=== PATIENT | female | born 1980 | race American Indian/Alaskan Native ===

== ENCOUNTER 2019-09-26 19:42 | Emergency (ER) | payer SELFPAY ==
[2019-09-26 19:47] VITALS: BP 105/61; PULSE 103; RESP 18; TEMP 37.1; O2SAT 100
[2019-09-26 20:28] LABS: Add Manual Diff / Slide Review NO; Basophils Absolute Auto 0 /uL (0-100); Basophils Percent Auto 0.6 % (0-2); Eosinophils Absolute Auto 100 /uL (0-450); Eosinophils Percent Auto 1.6 % (2-4); Hematocrit 40.1 % (36-46); Hemoglobin 13.7 g/dL (12.0-16.0); Lymphocytes Absolute Auto 1300 /uL (1100-4500); Lymphocytes Percent Auto 15.6 % (25-40); Mean Corpuscular HGB Conc 34.2 % (30-36); Mean Corpuscular Hemoglobin 28.9 PG (26-34); Mean Corpuscular Volume 84.5 fL (80-100); Monocytes Absolute Auto 700 /uL (0-900); Monocytes Percent Auto 8.4 % (3-14); Neutrophils Absolute Auto 6100 /uL (1500-7000); Neutrophils Percent Auto 73.8 % (50-75); Platelet Count 352 X10^3/uL (150-400); Red Blood Cell Count 4.75 X10^6/uL (4.0-5.2); Red Cell Distribution Width 13.9 % (11.6-14.8); White Blood Cell Count 8.2 X10^3/uL (4.5-11.0)
[2019-09-26 20:41] LABS: BUN Creatinine Ratio 14.3 (6-22); Blood Urea Nitrogen 9 mg/dL (7-17); C-Reactive Protein Quant 3.4 mg/dL (<1.0); Calcium 9.2 mg/dL (8.4-10.2); Carbon Dioxide 27 mmol/L (22-32); Chloride 101 mmol/L (98-107); Creatine Kinase 47 U/L (30-135); Estimated Glomerular Filt Rate > 60.0 mL/min (>60); Glucose 111 mg/dL (70-100); HEMOLYSIS < 15 (0-50); Sodium 136 mmol/L (137-145)
[2019-09-26 20:47] LABS: Erythrocyte Sedimentation Rate 44 MM/HR (0-20)
[2019-09-26 20:50] LABS: NT-proBNP (BNP-Adult 18+) 40 pg/mL (<125); Troponin I < 0.012 ng/mL (0.01-0.034)
--- NOTE | 2019-09-26 21:08 | ED.EXTPRO ---
HPI - Extremity Problem General Chief complaint: Extremity Problem,Nontraumatic Stated complaint: Ankles Swelling and Painful Time Seen by Provider: 09/26/19 20:03 Source: patient Mode of arrival: Wheelchair Limitations: no limitations History of Present Illness HPI Narrative: 39F smoker without significant medical history presents with the chief complaint of B/L LE swelling and discomfort for upwards of 3 weeks. She has pain in her feet and ankles and complains of swelling. She denies any obvious injury, but states she thinks she may have turned her R ankle while getting off the trampoline a few weeks ago. She doesn't think she injured her left ankle but isn't sure. She denies redness, warmth or fever/chills. She denies any history of the same. She denies chest pine or shortness of breath. She is not dizzy, weak, or lightheaded. She denies any history of the same. She denies any significant activity, but admits that she may have been on her feet more than normal lately. She has been trying to elevate her legs at night when possible. MD Complaint: extremity pain and extremity swelling Onset (ago): week(s) Pain Consistency: constant Location: left, right and lower extremity Quality: aching Radiation: proximal Relieving factors: rest Associated symptoms: denies other symptoms Related Data Previous Rx's Medication Instructions Recorded furosemide [Lasix] 40 mg PO DAILY #5 tab 09/26/19 Allergies Allergy/AdvReac Type Severity Reaction Status Date / Time No Known Drug Allergies Allergy Unknown Unverified 09/09/17 13:11 [NO KNOWN DRUG ALLERGIES] INGREDIENT: NO KNOWN - NO Allergy Unknown Uncoded 09/09/17 13:11 KNOWN DRUG ALLERGY Review of Systems Constitutional Constitutional: Denies chills, Denies fatigue, Denies fever(s), Denies frequent falls, Denies lethargy and Denies weakness Eyes Eyes: Denies change in vision, Denies eye discharge, Denies irritation and Denies loss of vision ENT Ears, Nose, Mouth, and Throat: Denies change in voice, Denies dizziness, Denies neck pain, Denies sore throat and Denies throat swelling Cardiovascular Cardiovascular: Denies chest pain, Denies irregular heart rhythm, Reports leg edema, Denies lightheadedness, Denies palpitations, Denies dyspnea, Denies dyspnea on exertion and Denies orthopnea Respiratory Respiratory: Denies cough, Denies dyspnea, Denies dyspnea on exertion and Denies wheezing Gastrointestinal Gastrointestinal: Denies abdominal pain, Denies change in bowel habits, Denies diarrhea, Denies nausea and Denies vomiting Genitourinary Genitourinary: Denies hematuria, Denies flank pain, Denies urinary incontinence and Denies urinary urgency Musculoskeletal Musculoskeletal: Denies back pain, Reports joint swelling, Denies muscle weakness, Denies neck pain, Denies numbness and Denies tingling Integumentary/Breasts Skin/Breast: Denies pruritus, Denies erythema, Denies rash and Denies wounds Neurologic Neurologic: Denies behavioral changes, Denies confusion, Denies dizziness, Denies frequent falls, Denies loss of vision, Denies numbness, Denies tingling and Denies weakness Psychiatric Psychiatric: Denies anxiety, Denies behavioral changes, Denies confusion, Denies depression, Denies homicidal ideation and Denies suicidal ideation Endocrine Endocrine: Denies fatigue, Denies flushing and Denies palpitations Hematologic/Lymphatic Hematologic/Lymphatic: Denies easy bruising Allergic/Immunologic Allergic/Immunologic: Denies urticaria, Denies throat swelling and Denies wheezing Patient History Social History Smoking Status: Current some day smoker Smoking Status: Current some day smoker alcohol intake frequency: a few times a month Substance Use Type: does not use Exam Narrative Exam Narrative: GENERAL: [39] year old patient appears stated age. Well-nourished, well-developed patient, in mild distress. HEAD: Atraumatic. Normocephalic. EYES: Pupils equal round and reactive. Extraocular motions intact. No scleral icterus. No injection or drainage. ENT: Nose without bleeding, purulent drainage. Throat without erythema, tonsillar hypertrophy or exudate. Airway patent. NECK: Trachea midline. Non tender CARDIOVASCULAR: Regular rate and rhythm without murmurs, gallops, or rubs. RESPIRATORY: Clear to auscultation. Breath sounds equal bilaterally. No wheezes, rales, or rhonchi. GASTROINTESTINAL: Abdomen soft, non-tender, nondistended. EXTREMITIES: 2+ edema B/L LE from midshin down, including feet and ankles. NO redness, warmth, or tenderness. No red streaks. No induration or fluctuance. BACK: Nontender without deformity or crepitance. No flank tenderness. NEURO: AOx3. SKIN: No rash or erythema of visible areas Initial Vital Signs Initial Vital Signs: Vital Signs Temperature 98.7 F 09/26/19 19:47 Pulse Rate 103 H 09/26/19 19:47 Respiratory Rate 18 09/26/19 19:47 Blood Pressure 105/61 09/26/19 19:47 Pulse Oximetry 100 09/26/19 19:47 Course Orders Ordered: ED Orders 09/26/19 21:17 XR ankle RT min 3V Stat 09/26/19 21:30 D Dimer Stat 09/26/19 21:57 US periph venous low extrem bi Stat Discontinued Medications Ketorolac Tromethamine (Toradol) 60 mg IM NOW ONE Stop: 09/26/19 21:17 Last Admin: 09/26/19 21:33 Dose: 60 mg Documented by: RUTH ANN Vital Signs Vital signs: Vital Signs - 8 hr 09/26/19 23:40 Pulse Rate 78 Respiratory Rate 15 Blood Pressure 97/60 Pulse Oximetry 98 MDM - Extremity (Nontraumatic) Lab Data Result diagrams: 09/26/19 20:20 09/26/19 20:20 Labs: Lab Results 09/26/19 09/26/19 09/26/19 Range/Units 20:20 20:20 20:45 WBC 8.2 (4.5-11.0) X10^3/uL RBC 4.75 (4.0-5.2) X10^6/uL Hgb 13.7 (12.0-16.0) g/dL Hct 40.1 (36-46) % MCV 84.5 (80-100) fL MCH 28.9 (26-34) PG MCHC 34.2 (30-36) % RDW 13.9 (11.6-14.8) % Plt Count 352 (150-400) X10^3/uL Neut % (Auto) 73.8 (50-75) % Lymph % (Auto) 15.6 L (25-40) % [place] % (Auto) 8.4 (3-14) % Eos % (Auto) 1.6 L (2-4) % Baso % (Auto) 0.6 (0-2) % Neut # (Auto) 6100 (1324-7283) /uL Lymph # (Auto) 1300 (4797-9144) /uL [place] # (Auto) 700 (0-900) /uL Eos # (Auto) 100 (0-450) /uL Baso # (Auto) 0 (0-100) /uL ESR 44 H (0-20) MM/HR D-Dimer (<230) ng/mL Sodium 136 L (137-145) mmol/L Potassium 4.0 (3.4-5.1) mmol/L Chloride 101 (98-107) mmol/L Carbon Dioxide 27 (22-32) mmol/L BUN 9 (7-17) mg/dL Creatinine 0.63 (0.52-1.04) mg/dL Estimated GFR > 60.0 (>60) mL/min BUN/Creatinine Ratio 14.3 (6-22) Glucose 111 H (70-100) mg/dL Calcium 9.2 (8.4-10.2) mg/dL Total Creatine Kinase 47 (30-135) U/L CK-MB (CK-2) TNP CK-MB (CK-2) Rel Index TNP Troponin I < 0.012 (0.01-0.034) ng/mL C-Reactive Protein 3.4 H (<1.0) mg/dL NT-Pro-B Natriuret Pep 40 (<125) pg/mL Urine RBC 0-1/hpf (0-5/HPF) Urine WBC 1-5/hpf (0-5/HPF) Ur Squamous Epith Cells 1-5 /hpf (0-5/HPF) Urine Bacteria Few (2-10) H (None) Ur Culture Indicated? Specimen cultured 09/26/19 Range/Units 21:30 WBC (4.5-11.0) X10^3/uL RBC (4.0-5.2) X10^6/uL Hgb (12.0-16.0) g/dL Hct (36-46) % MCV (80-100) fL MCH (26-34) PG MCHC (30-36) % RDW (11.6-14.8) % Plt Count (150-400) X10^3/uL Neut % (Auto) (50-75) % Lymph % (Auto) (25-40) % [place] % (Auto) (3-14) % Eos % (Auto) (2-4) % Baso % (Auto) (0-2) % Neut # (Auto) (1169-6176) /uL Lymph # (Auto) (8435-0516) /uL Davidson # (Auto) (0-900) /uL Eos # (Auto) (0-450) /uL Baso # (Auto) (0-100) /uL ESR (0-20) MM/HR D-Dimer 509 H (<230) ng/mL Sodium (137-145) mmol/L Potassium (3.4-5.1) mmol/L Chloride (98-107) mmol/L Carbon Dioxide (22-32) mmol/L BUN (7-17) mg/dL Creatinine (0.52-1.04) mg/dL Estimated GFR (>60) mL/min BUN/Creatinine Ratio (6-22) Glucose (70-100) mg/dL Calcium (8.4-10.2) mg/dL Total Creatine Kinase (30-135) U/L CK-MB (CK-2) CK-MB (CK-2) Rel Index Troponin I (0.01-0.034) ng/mL C-Reactive Protein (<1.0) mg/dL NT-Pro-B Natriuret Pep (<125) pg/mL Urine RBC (0-5/HPF) Urine WBC (0-5/HPF) Ur Squamous Epith Cells (0-5/HPF) Urine Bacteria (None) Ur Culture Indicated? Point of Care Testing Test Results Negative Urine Dip Bedside Urine Glucose Negative Bedside Urine Bilirubin - Negative Bedside Urine Ketone - Negative Urine Specific [place] 1.015 Bedside Urine Occult Blood +/- Bedside Urine pH 6.5 Bedside Urine Protein +/- 15 Bedside Urine Urobilinogen 1+ 2mg Bedside Urine Nitrite - Negative Bedside Urine Leukocytes ++ 125 Esterase Imaging Data US - DVT: Radiologist's Impression: No DVT MDM Narrative Medical decision making narrative: Multiple etiologies considered including cellulitis, but considered less likely given lack of redness or warmth and B/L distribution. DVT considered due to unexplained swelling with elevated DDimer, but US negative, also no redness or warmth. Dependant edema considered most likely diagnosis. Cardiac and renal etiologies considered but thought less likely given history, exam, labs. Return precautions given and questions answered to her apparent satisfaction. Discharge Plan Departure Patient Disposition: Home Clinical Impression: Lower extremity edema Discharge Date/Time: 09/26/19 23:41 Instructions: DI for Peripheral Edema -- Bilateral Activity Restrictions/Additional Instructions: *You have been diagnosed with [ bilateral lower extremity edema ] *What to do: *Take medications as directed *Follow up with your primary care provider in 2-3 days, call for an appointment. Let them know you were seen in the Emergency Department and that we ask that you be seen in follow up *Return to ER if you should have any new, worsening or concerning symptoms Prescriptions: New furosemide [Lasix] 40 mg tablet 40 mg PO DAILY Qty: 5 RF: 0 Referrals: Danuta Tinoco MD [Primary Care Provider] -
--- NOTE | 2019-09-26 21:17 | DI.RAD.S_ITS ---
PROCEDURE: XR ANKLE RT MIN 3V INDICATIONS: pain after injury TECHNIQUE: 3 views of the ankle were acquired. COMPARISON: None. FINDINGS: Bones: No fractures or dislocations. Ankle mortise is normally aligned. No suspicious bony lesions. Soft tissues: No tibiotalar joint effusion. Achilles tendon appears normal. IMPRESSION: Right ankle without acute fracture or dislocation. If there is persistent clinical concern for occult fracture given adequate mechanism of injury, consider repeat imaging in 10-14 days. Dictated by: Nomi Thorpe M.D. on 09/26/2019 at 22:06 Approved by: Nomi Thorpe M.D. on 09/26/2019 at 22:07
[2019-09-26 21:23] LABS: Bacteria Urine Few (2-10); Culture Indicated Urine Specimen Cultured; RBC Urine 0-1/HPF (0-5/HPF); Squamous Epithelial Cell Urine 1-5 /HPF (0-5/HPF); WBC Urine 1-5/HPF (0-5/HPF)
[2019-09-26] MEDS: KETOROLAC 60 MG/2 ML VIAL IM (21:33)
--- NOTE | 2019-09-26 21:35 | PC.NURSE ---
Patient reports she stepped off a trampoline on 09/11 and began with bruising and swelling to right ankle. Reports elft ankle is bruised and swollen from unknown cause starting two days ago. In wheelchair. Scattered bruising across both ankles with significant swelling.
[2019-09-26 21:53] LABS: D Dimer 509 ng/mL (<230)
--- NOTE | 2019-09-26 21:57 | DI.US.S_ITS ---
PROCEDURE: US PERIPH VENOUS LOW EXTREM BI INDICATIONS: PAIN, SWELLING, WARMTH, REDNESS, CRITICAL D DIMER TECHNIQUE: Real-time imaging, as well as color and pulse Doppler interrogation, were performed of the deep veins of both legs from the inguinal ligament to the popliteal fossa. COMPARISON: None. FINDINGS: Right: The common femoral, femoral and popliteal veins are normally compressible, and free of intraluminal thrombus. Color and pulse Doppler demonstrate normal phasic intravascular flow. There is normal augmentation response to distal compression maneuver. Left: The common femoral, femoral and popliteal veins are normally compressible, and free of intraluminal thrombus. Color and pulse Doppler demonstrate normal phasic intravascular flow. There is normal augmentation response to distal compression maneuver. IMPRESSION: No DVT found. Dictated by: Dg Connolly M.D. on 09/27/2019 at 8:22 Approved by: Dg Connolly M.D. on 09/27/2019 at 8:23
[2019-09-26 23:40] VITALS: BP 97/60; PULSE 78; RESP 15; O2SAT 98
== END 2019-09-26 23:41 | disposition home or self-care (01) ==
PROVIDERS: Emergency Provider Emergency Medicine; Family Provider Specialist; PCP Specialist
DX: R60.0 Localized edema (principal)
CPT/HCPCS: 36415; 73610; 80048; 81003; 81015; 81025; 82550; 83880; 84484; 85025; 85379; 85651; 86140; 87086; 93970; 96372; 99284; J1885

== ENCOUNTER 2022-06-26 14:20 | Emergency (ER) | payer MEDICAID, SELFPAY ==
[2022-06-26 14:29] VITALS: BP 104/73; PULSE 90; RESP 15; TEMP 36.1; O2SAT 100; BMI 22.3
[2022-06-26 15:12] LABS: Alanine Aminotransferase 20 IU/L (<35); Albumin 3.7 g/dL (3.5-5.0); Albumin Globulin Ratio 1.1 (1.0-2.8); Alkaline Phosphatase 72 U/L (38-126); Aspartate Aminotransferase 35 IU/L (14-36); Bilirubin Total 0.5 mg/dL (0.2-1.3); Blood Urea Nitrogen 6 mg/dL (7-17); Calcium 8.2 mg/dL (8.4-10.2); Carbon Dioxide 31 mmol/L (22-32); Chloride 90 mmol/L (98-107); Estimated Glomerular Filt Rate > 60 mL/min (>60); Globulin 3.5 g/dL (1.7-4.1); Glucose 93 mg/dL (70-100); HEMOLYSIS < 15 (0-50); Sodium 129 mmol/L (137-145); Total Protein 7.2 g/dL (6.3-8.2)
[2022-06-26 15:15] LABS: Potassium 2.7 mmol/L (3.4-5.1)
[2022-06-26 15:32] LABS: Ictotest Urine Negative (Negative)
[2022-06-26 15:33] LABS: Bacteria Urine Occasional (0-1); Culture Indicated Urine Specimen Cultured; Mucus Urine 2+ (Negative); RBC Urine None Seen (0-5/HPF); Squamous Epithelial Cell Urine 1-5 /HPF (0-5/HPF); WBC Urine 1-5/HPF (0-5/HPF)
[2022-06-26] MEDS: POTASSIUM CHLORIDE 20 MEQ TAB 40 MEQ PO (17:12)
[2022-06-26] MEDS: SODIUM CHLORIDE 0.9% 1,000 ML 1000 ML IV (17:13)
--- NOTE | 2022-06-26 19:05 | ED.RECABL ---
HPI - Recheck/Abnormal Lab/Rx General Chief Complaint: Recheck/Abnormal Lab/Rx Stated Complaint: low potassium per appt yest, vommiting Time Seen by Provider: 06/26/22 16:41 Source: patient Mode of arrival: Ambulatory Limitations: no limitations History of Present Illness HPI narrative: Patient is a 42-year-old female who was sent by her primary doctor because of low potassium. Over the past couple days she has had multiple episodes of vomiting. Has been no diarrhea. Her nausea vomiting has completely resolved. She had labs drawn yesterday by her primary doctor as an outpatient for evaluation of this vomiting. Was found that her potassium was low when she was called by her primary doctor to come to the emergency department for potassium. Patient reports no specific symptoms. Related Data Previous Rx's Medication Instructions Recorded furosemide 40 mg tablet (Lasix) 40 mg PO DAILY #5 tabs 09/26/19 Allergies Allergy/AdvReac Type Severity Reaction Status Date / Time No Known Drug Allergies Allergy Unknown Verified 06/26/22 14:29 [NO KNOWN DRUG ALLERGIES] INGREDIENT: NO KNOWN - NO Allergy Unknown Uncoded 09/09/17 13:11 KNOWN DRUG ALLERGY Review of Systems Constitutional Constitutional: Reports system reviewed and no additional complaints, except as documented Cardiovascular Cardiovascular: Denies chest pain, Denies rapid heart rate, Denies lightheadedness and Denies dyspnea Respiratory Respiratory: Denies cough and Denies dyspnea Gastrointestinal Gastrointestinal: Denies abdominal pain, Denies nausea and Denies vomiting Musculoskeletal Musculoskeletal: Reports system reviewed and no additional complaints, except as documented Integumentary/Breasts Skin/Breast: Reports system reviewed and no additional complaints, except as documented Hematologic/Lymphatic On Anticoagulants: No Patient History Social History Smoking Status: Current some day smoker Smoking Status: Current some day smoker alcohol intake frequency: a few times a month Substance Use Type: does not use Exam Initial Vital Signs Initial Vital Signs: Vital Signs Temperature 97.0 F L 06/26/22 14:29 Pulse Rate 90 06/26/22 14:29 Respiratory Rate 15 06/26/22 14:29 Blood Pressure 104/73 06/26/22 14:29 Pulse Oximetry 100 06/26/22 14:29 Oxygen Delivery Method 06/26/22 14:29 Const General: cooperative, comfortable and No ill appearing HENMT Head: normal to inspection and normocephalic Resp Effort & Inspection: normal respiratory effort Auscultation: clear to auscultation bilaterally Cardio Rate: regular rate Rhythm: regular rhythm GI Inspection: normal to inspection Skin General: no rashes or lesions noted Neuro General: patient alert, patient awake and moves all extremities Extrem General: normal to inspection and capillary refill normal Course Orders Ordered: Discontinued Medications Sodium Chloride (Normal Saline 0.9%) 1,000 mls @ 1,000 mls/hr IV BOLUS ONE Stop: 06/26/22 17:40 Last Infusion: 06/26/22 19:53 Dose: 0 mls/hr Documented By: Admin: 06/26/22 17:13 Dose: 1,000 mls/hr Documented By: HITESH Potassium Chloride (Potassium Chloride 20 Meq Tab) 40 meq PO NOW ONE Stop: 06/26/22 16:42 Last Admin: 06/26/22 17:12 Dose: 40 meq Documented By: HITESH Potassium Chloride (Potassium Chloride 20 Meq/15 Ml Udc) 20 meq PO NOW ONE Stop: 06/26/22 19:06 Last Admin: 06/26/22 19:38 Dose: 20 meq Documented By: DANIELE Vital Signs Vital signs: Vital Signs - 8 hr 06/26/22 19:23 06/26/22 20:10 Pulse Rate 74 89 Respiratory Rate 118 H 17 Blood Pressure 107/65 98/63 Pulse Oximetry 100 99 Oxygen Delivery Method Room Air Room Air MDM - Recheck/Abnormal Lab/Rx Differential Diagnosis Differential diagnosis: Likely other (Arrhythmia, electrolyte abnormality, asymptomatic hypokalemia, and others) Lab Data Attestation: I reviewed the patient's lab results. 06/26/22 14:50 Labs: Lab Results 06/26/22 06/26/22 06/26/22 Range/Units 14:35 14:35 14:50 Sodium 129 L (137-145) mmol/L Potassium 2.7 L* (3.4-5.1) mmol/L Chloride 90 L (98-107) mmol/L Carbon Dioxide 31 (22-32) mmol/L BUN 6 L (7-17) mg/dL Creatinine 0.60 (0.52-1.04) mg/dL Estimated GFR > 60 (>60) mL/min BUN/Creatinine Ratio 10.0 (6-22) Glucose 93 (70-100) mg/dL Calcium 8.2 L (8.4-10.2) mg/dL Total Bilirubin 0.5 (0.2-1.3) mg/dL AST 35 (14-36) IU/L ALT 20 (<35) IU/L Alkaline Phosphatase 72 (38-126) U/L Total Protein 7.2 (6.3-8.2) g/dL Albumin 3.7 (3.5-5.0) g/dL Globulin 3.5 (1.7-4.1) g/dL Albumin/Globulin Ratio 1.1 (1.0-2.8) Ur Bilirubin Confirm Negative (Negative) Urine RBC None seen (0-5/HPF) Urine WBC 1-5/hpf (0-5/HPF) Ur Squamous Epith Cells 1-5 /hpf (0-5/HPF) Urine Bacteria Occasional (0-1) (None) Urine Mucus 2+ H (Negative) Ur Culture Indicated? Specimen cultured Point of Care Testing Test Results Negative Urine Dip Bedside Urine Glucose Negative Bedside Urine Bilirubin + 1 Bedside Urine Ketone +++ 80 Urine Specific [place] 1.030 Bedside Urine Occult Blood +/- Bedside Urine pH 6 Bedside Urine Protein + 30 Bedside Urine Urobilinogen +/- 1mg Bedside Urine Nitrite - Negative Bedside Urine Leukocytes - Negative Esterase ECG Data Attestation: I personally reviewed and interpreted this ECG as follows: Interpretation: Sinus rhythm Ventricular rate 87 Normal axis Normal QRS Normal QTC Nonspecific ST T wave changes MDM Narrative Medical decision making narrative: Patient is asymptomatic. She tolerated oral potassium. Nonspecific EKG changes. Will discharge patient home. She is not having any symptoms of hypokalemia and the vomiting which is most likely the cause has completely resolved as well. She was given return precautions. She expressed understanding and agreement. Discharge Plan Departure Patient Disposition: Home Clinical Impression: Hypokalemia Activity Restrictions/Additional Instructions: I recommend that you continue to take all of your medications as directed. For the next couple days you can eat things that are high in potassium such as bananas and spinach. You can also take a multivitamin. Contact your primary doctor for follow-up. Return to the emergency department for any new symptoms. Prescriptions: No Action furosemide [Lasix] 40 mg tablet 40 mg PO DAILY Qty: 5 0RF Referrals: Danuta Tinoco MD [Primary Care Provider] - Stand Alone Forms: Patient Portal/API
[2022-06-26 19:23] VITALS: BP 107/65; PULSE 74; RESP 118; O2SAT 100
[2022-06-26] MEDS: POTASSIUM CHLORIDE 20 MEQ/15 ML UDC PO (19:38)
[2022-06-26 20:10] VITALS: BP 98/63; PULSE 89; RESP 17; O2SAT 99
== END 2022-06-26 20:10 | disposition home or self-care (01) ==
PROVIDERS: Emergency Medicine; Emergency Provider Emergency Medicine; Family Provider Specialist; PCP Specialist
DX: E87.6 Hypokalemia (principal); R11.2 Nausea with vomiting, unspecified
CPT/HCPCS: 36415; 80053; 81003; 81015; 81025; 87086; 93005; 96360; 96361; 99284

== ENCOUNTER 2022-07-13 20:58 | Emergency (ER) | payer MEDICAID, SELFPAY ==
[2022-07-13] VITALS (9 sets, daily range): BP systolic 96–113; BP diastolic 61–91; PULSE 73–132; RESP 18–23; TEMP 36.7; O2SAT 99–100; BMI 22.4
[2022-07-13] MEDS: SODIUM CHLORIDE 0.9% 1,000 ML 1000 ML IV (21:20)
[2022-07-13] MEDS: ONDANSETRON 4 MG/2 ML INJ IV ×2 (21:21→23:12)
--- NOTE | 2022-07-13 21:26 | ED_ITS ---
HPI - Nausea/Vomiting/Diarrhea General Chief complaint: Nausea/Vomiting/Diarrhea Stated complaint: Can't hold anything down Time Seen by Provider: 07/13/22 21:04 Source: patient Mode of arrival: Wheelchair Limitations: no limitations History of Present Illness HPI Narrative: 42-year-old female is here for evaluation of 3 days of vomiting. States that she is not having diarrhea. Is unable to hold down any fluids or food. No fevers. Is having abdominal pain. No urinary symptoms. Recently was seen here in the emergency department secondary to hypokalemia secondary to vomiting. She does not have any nausea medications at home. She is not tried anything to help her symptoms. She is having cramping in her upper extremities and lower extremities. She is not know why she is vomiting. No recent antibiotic. No recent sick contacts. Related Data Previous Rx's Medication Instructions Recorded furosemide 40 mg tablet (Lasix) 40 mg PO DAILY #5 tabs 09/26/19 ondansetron 4 mg disintegrating 4 mg PO Q6H PRN nausea and 07/14/22 tablet vomiting #14 tabs potassium chloride 10 mEq 10 meq PO DAILY 5 days #5 tabs 07/14/22 tablet,extended release Allergies Allergy/AdvReac Type Severity Reaction Status Date / Time No Known Drug Allergies Allergy Unknown Verified 07/13/22 21:06 [NO KNOWN DRUG ALLERGIES] Review of Systems Review of Systems ROS Unobtainable: All systems reviewed & are unremarkable except as noted in HPI and below Patient History Medical History Hypokalemia Social History Smoking Status: Current some day smoker Smoking Status: Current some day smoker alcohol intake frequency: a few times a month Substance Use Type: does not use Exam Initial Vital Signs Initial Vital Signs: Vital Signs Pulse Rate 99 H 07/13/22 21:04 Pulse Oximetry 99 07/13/22 21:04 Oxygen Delivery Method 07/13/22 21:04 Const General: cooperative and No ill appearing HENMT Head: normal to inspection and normocephalic Resp Effort & Inspection: tachypneic Auscultation: clear to auscultation bilaterally Cardio Rate: tachycardic Rhythm: regular rhythm GI Inspection: normal to inspection Skin General: no rashes or lesions noted Neuro General: patient alert, patient awake, patient oriented x3 and moves all extremities Extrem General: normal to inspection and capillary refill normal Psych Appearance: grossly normal and well kempt Course Orders Ordered: ED Orders 07/13/22 21:13 Basic Metabolic Panel Stat Complete Blood Count AUTO DIFF Stat Test Serum,Qual Stat Discontinued Medications Sodium Chloride (Normal Saline 0.9%) 1,000 mls @ 1,000 mls/hr IV BOLUS ONE Stop: 07/13/22 22:09 Last Infusion: 07/13/22 22:24 Dose: 0 mls/hr Documented By: Admin: 07/13/22 21:20 Dose: 1,000 mls/hr Documented By: AT POTASSIUM CHLORIDE IN WATER (Potassium Cl 10 Meq/100 Ml Monae) 10 meq in 100 mls @ 100 mls/hr IV Q1H TAMANNA Stop: 07/14/22 01:44 Last Admin: 07/14/22 01:10 Dose: 100 mls/hr Documented By: Infusion: 07/14/22 01:10 Dose: 75 mls/hr Documented By: Admin: 07/14/22 00:10 Dose: 75 mls/hr Documented By: Infusion: 07/13/22 23:58 Dose: 75 mls/hr Documented By: Infusion: 07/13/22 23:39 Dose: 75 mls/hr Documented By: Admin: 07/13/22 22:53 Dose: 100 mls/hr Documented By: Infusion: 07/13/22 22:44 Dose: 100 mls/hr Documented By: Admin: 07/13/22 21:44 Dose: 100 mls/hr Documented By: AT Lactated Ringer's (Lactated Ringers) 1,000 mls @ 1,000 mls/hr IV BOLUS ONE Stop: 07/13/22 22:37 Last Infusion: 07/13/22 23:39 Dose: 0 mls/hr Documented By: Admin: 07/13/22 22:28 Dose: 1,000 mls/hr Documented By: STEFANY Metoclopramide HCl (Metoclopramide 10 Mg/2 Ml Inj) 10 mg IV NOW ONE Stop: 07/14/22 00:30 Last Admin: 07/14/22 00:35 Dose: 10 mg Documented By: STEFANY Ondansetron HCl (Ondansetron 4 Mg/2 Ml Inj) 4 mg IV NOW ONE Stop: 07/13/22 21:11 Last Admin: 07/13/22 21:21 Dose: 4 mg Documented By: GINO Ondansetron HCl (Ondansetron 4 Mg/2 Ml Inj) 4 mg IV NOW ONE Stop: 07/13/22 23:05 Last Admin: 07/13/22 23:12 Dose: 4 mg Documented By: STEFANY Ondansetron HCl (Ondansetron 4 Mg Odt Prepack) 1 bottle MISC SEEINSTR ONE Stop: 07/14/22 02:14 Potassium Chloride (Potassium Chloride 20 Meq/15 Ml Udc) 40 meq PO NOW ONE Stop: 07/14/22 00:07 Last Admin: 07/14/22 00:13 Dose: 40 meq Documented By: STEFANY Vital Signs Vital signs: Vital Signs - 8 hr 07/13/22 21:06 07/13/22 21:04 07/13/22 21:05 Temperature 98.1 F Pulse Rate 99 H 99 H Respiratory Rate 19 Blood Pressure 113/91 H 113/91 H Pulse Oximetry 100 99 Oxygen Delivery Method Room Air Room Air 07/13/22 21:05 07/13/22 21:13 07/13/22 21:13 Temperature Pulse Rate 132 H 123 H Respiratory Rate 20 Blood Pressure 101/77 Pulse Oximetry 100 100 Oxygen Delivery Method Room Air Room Air 07/13/22 21:30 07/13/22 21:30 07/13/22 22:00 Temperature Pulse Rate 101 H Respiratory Rate 23 Blood Pressure 98/62 105/71 Pulse Oximetry 100 Oxygen Delivery Method Room Air 07/13/22 22:00 07/13/22 22:30 07/13/22 22:30 Temperature Pulse Rate 80 79 Respiratory Rate 18 18 Blood Pressure 96/65 Pulse Oximetry 99 99 Oxygen Delivery Method Room Air Room Air 07/13/22 23:00 07/13/22 23:00 07/13/22 23:30 Temperature Pulse Rate 80 Respiratory Rate Blood Pressure 113/72 100/61 Pulse Oximetry 100 Oxygen Delivery Method Room Air 07/13/22 23:30 07/14/22 00:00 07/14/22 00:00 Temperature Pulse Rate 73 78 Respiratory Rate 20 18 Blood Pressure 100/64 Pulse Oximetry 100 100 Oxygen Delivery Method Room Air Room Air 07/14/22 00:30 07/14/22 00:30 07/14/22 01:00 Temperature Pulse Rate 79 Respiratory Rate 20 Blood Pressure 108/62 98/66 Pulse Oximetry 99 Oxygen Delivery Method Room Air 07/14/22 01:00 07/14/22 01:30 07/14/22 01:30 Temperature Pulse Rate 91 H 87 Respiratory Rate 47 H 20 Blood Pressure 104/66 Pulse Oximetry 100 100 Oxygen Delivery Method MDM - Nausea/Vomiting/Diarrhea Medical Records Attestation: I reviewed the patient's medical records. Lab Data Attestation: I reviewed the patient's lab results. 07/13/22 21:13 07/13/22 21:13 Labs: Lab Results 07/13/22 07/13/22 07/13/22 Range/Units 21:13 21:13 21:13 WBC 9.3 (4.5-11.0) X10^3/uL RBC 5.35 H (4.0-5.2) X10^6/uL Hgb 10.7 L (12.0-16.0) g/dL Hct 34.6 L (36-46) % MCV 64.6 L (80-100) fL MCH 20.0 L (26-34) PG MCHC 31.0 (30-36) % RDW 17.9 H (11.6-14.8) % Plt Count 610 H (150-400) X10^3/uL Neut % (Auto) 72.8 (50-75) % Lymph % (Auto) 19.1 L (25-40) % [place] % (Auto) 6.3 (3-14) % Eos % (Auto) 0.6 L (2-4) % Baso % (Auto) 1.2 (0-2) % Neut # (Auto) 6700 (8104-1064) /uL Lymph # (Auto) 1800 (0561-3387) /uL [place] # (Auto) 600 (0-900) /uL Eos # (Auto) 100 (0-450) /uL Baso # (Auto) 100 (0-100) /uL RBC Morphology See below Anisocytosis 2+ H Microcytosis 2+ H Sodium 140 (137-145) mmol/L Potassium 2.5 L* (3.4-5.1) mmol/L Chloride 94 L (98-107) mmol/L Carbon Dioxide 37 H (22-32) mmol/L BUN 10 (7-17) mg/dL Creatinine 0.63 (0.52-1.04) mg/dL Estimated GFR > 60 (>60) mL/min BUN/Creatinine Ratio 15.9 (6-22) Glucose 108 H (70-100) mg/dL Calcium 8.8 (8.4-10.2) mg/dL Serum , Qual Negative (Negative) MDM Narrative Medical decision making narrative: Patient does have a benign abdominal exam. Patient is hypokalemic and dehydrated and I suspect that this is because of her vomiting. After fluids and potassium replacement patient states she feels much better. She is drinking liquids. She did not tolerate the oral potassium. I do feel that we can hold on radiologic studies for now. Will send home with nausea medication and also oral potassium. They were sent to the pharmacy of her choice. She is instructed to contact her primary provider to discuss further evaluation of her vomiting. She was given return precautions. She expressed understanding and agreement. Discharge Plan Departure Patient Disposition: Home Clinical Impression: Hypokalemia, Acute vomiting Instructions: DI for Vomiting -- Adult Activity Restrictions/Additional Instructions: I do recommend that you talk with your primary doctor about further workup of your vomiting episodes. Prescription for nausea medication and also potassium supplement was sent to [facility]. Be sure to increase your fluid intake. I do recommend a bland diet for the next couple days. Return to the emergency department for new symptoms. Prescriptions: New ondansetron 4 mg tablet,disintegrating 4 mg PO Q6H PRN (Reason: nausea and vomiting) Qty: 14 0RF potassium chloride 10 mEq tablet extended release 10 meq PO DAILY 5 Days Qty: 5 0RF No Action furosemide [Lasix] 40 mg tablet 40 mg PO DAILY Qty: 5 0RF Referrals: Danuta Tinoco MD [Primary Care Provider] - Stand Alone Forms: Patient Portal/API
[2022-07-13 21:28] LABS: Basophils Absolute Auto 100 /uL (0-100); Basophils Percent Auto 1.2 % (0-2); Eosinophils Absolute Auto 100 /uL (0-450); Eosinophils Percent Auto 0.6 % (2-4); Hematocrit 34.6 % (36-46); Hemoglobin 10.7 g/dL (12.0-16.0); Lymphocytes Absolute Auto 1800 /uL (1100-4500); Lymphocytes Percent Auto 19.1 % (25-40); Mean Corpuscular Volume 64.6 fL (80-100); Monocytes Absolute Auto 600 /uL (0-900); Monocytes Percent Auto 6.3 % (3-14); Neutrophils Absolute Auto 6700 /uL (1500-7000); Neutrophils Percent Auto 72.8 % (50-75); Platelet Count 610 X10^3/uL (150-400); Red Blood Cell Count 5.35 X10^6/uL (4.0-5.2); Red Cell Distribution Width 17.9 % (11.6-14.8); White Blood Cell Count 9.3 X10^3/uL (4.5-11.0)
[2022-07-13 21:32] LABS: BUN Creatinine Ratio 15.9 (6-22); Blood Urea Nitrogen 10 mg/dL (7-17); Calcium 8.8 mg/dL (8.4-10.2); Carbon Dioxide 37 mmol/L (22-32); Chloride 94 mmol/L (98-107); Estimated Glomerular Filt Rate > 60 mL/min (>60); Glucose 108 mg/dL (70-100); HEMOLYSIS < 15 (0-50); Sodium 140 mmol/L (137-145)
[2022-07-13 21:37] LABS: Potassium 2.5 mmol/L (3.4-5.1)
[2022-07-13] MEDS: POTASSIUM CHLORIDE IN WATER 10 MEQ/100 ML PIGGYBACK 100 MEQ IV ×2 (21:44→22:53)
[2022-07-13 21:50] LABS: Pregnancy Test Serum,Qual Negative (Negative)
[2022-07-13 21:59] LABS: Add Manual Diff / Slide Review SLIDE REVIEW; Anisocytosis 2+; Microcytosis 2+
[2022-07-13] MEDS: LACTATED RINGERS 1,000 ML 1000 ML IV (22:28)
[2022-07-14] VITALS (7 sets, daily range): BP systolic 90–108; BP diastolic 58–66; PULSE 72–91; RESP 18–20; O2SAT 99–100
[2022-07-14] MEDS: POTASSIUM CHLORIDE IN WATER 10 MEQ/100 ML PIGGYBACK 75 MEQ IV (00:10)
[2022-07-14] MEDS: POTASSIUM CHLORIDE 20 MEQ/15 ML UDC 40 MEQ PO (00:13)
[2022-07-14] MEDS: METOCLOPRAMIDE 10 MG/2 ML INJ IV (00:35)
--- NOTE | 2022-07-14 00:43 | PC.NURSE ---
At 00:13 patient was given prescribed oral potassium chloride (see MAR) and had another large vomiting episode at 00:22. Dr. Lind notified, awaiting orders.
[2022-07-14] MEDS: POTASSIUM CHLORIDE IN WATER 10 MEQ/100 ML PIGGYBACK 100 MEQ IV (01:10)
[2022-07-14] MEDS: ONDANSETRON 4 MG ODT PREPACK 1 BOTTLE MISC (02:20)
== END 2022-07-14 02:38 | disposition home or self-care (01) ==
PROVIDERS: Emergency Provider Emergency Medicine; Family Provider Specialist; PCP Specialist
DX: E87.6 Hypokalemia (principal); R11.10 Vomiting, unspecified
CPT/HCPCS: 80048; 84703; 85025; 96365; 96366; 96375; 96376; 99284; J2405; J2765

== ENCOUNTER 2022-07-16 09:25 | Inpatient (IN) | payer MEDICAID, SELFPAY ==
[2022-07-16] VITALS (36 sets, daily range): BP systolic 97–119; BP diastolic 64–80; PULSE 74–116; RESP 16–39; TEMP 35.9–37.1; O2SAT 93–100; BMI 20.5
--- NOTE | 2022-07-16 09:56 | DI.CT.S_ITS ---
PROCEDURE: CT CHEST ABD PEL W CON INDICATIONS: sepsis TECHNIQUE: After the administration of intravenous contrast, 5 mm thick sections acquired from the lung apices to the symphysis. 5 mm coronal and sagittal reformats were performed, with additional 7 mm MIP reformats through the lungs. For radiation dose reduction, the following was used: automated exposure control, adjustment of mA and/or kV according to patient size. COMPARISON: None. FINDINGS: Image quality: Excellent. CHEST: Lungs and pleura: 3-4 mm solid nodule in the left lung apex (5/77). No acute airspace opacities. No pleural effusions or pneumothorax. Central and peripheral airways appear patent and normal in caliber. Mediastinum: Heart size is normal. No pericardial effusion. No mediastinal or hilar adenopathy by size criteria. Thoracic aorta and central pulmonary arteries are normal in size. Esophagus is normal in caliber. No hiatal hernia. Chest wall: No axillary or supraclavicular adenopathy by size criteria. Thyroid gland is unremarkable. . ABDOMEN: Solid organs: Liver is normal in size and enhancement. Gallbladder is distended with stones; no pericholecystic edema or wall thickening. Biliary system is non dilated. Pancreas enhances normally. Spleen is normal in size and enhancement. No adrenal nodules. Kidneys demonstrate normal size and enhancement, without hydronephrosis. Peritoneum and bowel: Bowel loops demonstrate normal wall thickness and caliber. No free fluid or air. Nodes and vessels: No retroperitoneal or mesenteric adenopathy by size criteria. Aorta and inferior vena cava are normal in size. Miscellaneous: No ventral hernias. PELVIS: Genitourinary: Bladder wall thickness is normal. Left adnexal mass containing macroscopic fat and soft tissue attenuation measuring 9.1 x 5.7 cm. There is asymmetric positioning of the uterus to the left. Miscellaneous: No inguinal hernias or adenopathy. Bones: No suspicious bony lesions. No vertebral body compression fractures. IMPRESSION: 1. Cholelithiasis with mildly distended gallbladder. Findings may indicate early acute cholecystitis in the appropriate clinical setting. No secondary indicators of acute cholecystitis at this time. 2. Left adnexal mass containing macroscopic fat and soft tissue attenuation measuring 9.1 x 5.7 cm. There is asymmetric positioning of the uterus to the left. 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 The asymmetric positioning of the uterus may indicate torsion. Correlate with left lower quadrant pain and consider pelvic ultrasound if positive or a high clinical concern for torsion. 3. Sub 4-mm solid nodule in the left lung apex. Consider 12 month follow-up if this patient is at high risk for developing lung cancer, per [employer] guidelines. Dictated by: Mauricio Pastor M.D. on 07/16/2022 at 10:53 Approved by: Mauricio Pastor M.D. on 07/16/2022 at 11:02
--- NOTE | 2022-07-16 09:57 | ED_ITS ---
HPI - Weakness General Chief complaint: Weakness Stated complaint: Potassium/chest up is numb arms numb/V Time Seen by Provider: 07/16/22 09:48 Source: patient and family Mode of arrival: Wheelchair History of Present Illness HPI Narrative: Patient brought in by from home for intractable vomiting and generalized weakness and weight loss. Patient has lost between 50 and 70 lb in the past 3 months, not purposeful. Has had vomiting for the past 1 week with low potassium. Seen here 1 month ago for the same. Seen here 2 days ago for the same. Unable to hold medications. Denies any chest pain or abdominal pain. No history of cancer. No fever or chills. No black or bloody stools or hematemesis. No night sweats Related Data Previous Rx's Medication Instructions Recorded furosemide 40 mg tablet (Lasix) 40 mg PO DAILY #5 tabs 09/26/19 metoclopramide HCl 10 mg tablet 10 mg PO Q6H PRN Nausea #30 tabs 07/18/22 ondansetron 4 mg disintegrating 4 mg PO Q6H PRN nausea and 07/18/22 tablet vomiting #30 tabs pantoprazole 40 mg tablet,delayed 40 mg PO DAILY #30 tabs 07/18/22 release (Protonix) potassium chloride 20 mEq 20 meq PO DAILY #30 tabs 07/18/22 tablet,extended release Allergies Allergy/AdvReac Type Severity Reaction Status Date / Time No Known Drug Allergies Allergy Unknown Verified 07/16/22 09:30 [NO KNOWN DRUG ALLERGIES] Review of Systems Review of Systems Narrative: GENERAL: negative chills, positive weight loss and fatigue, malaise, negative fever, sweats. HEENT: negative sinus pain, ear pain, sore throat RESPIRATORY: negative dyspnea, cough CARDIOVASCULAR: negative chest pain, palpitations GASTROINTESTINAL: Positive nausea, vomiting, negative abdominal pain : negative dysuria, frequency, hematuria MUSCULOSKELETAL: negative muscle or bony pain SKIN: negative rash, skin lesions NEUROLOGIC: negative weakness, numbness, positive dizziness ROS Unobtainable: All systems reviewed & are unremarkable except as noted in HPI and below Patient History Medical History Hypokalemia Social History household members: spouse Smoking Status: Current some day smoker alcohol intake: current Smoking Status: Current some day smoker alcohol intake frequency: a few times a month Substance Use Type: does not use Exam Narrative Exam Narrative: GENERAL: in no distress, not toxic not dyspneic HEAD: Normocephalic. EYES: Pupils equal round ENT: Mucous membranes moist. NECK: Trachea midline. CARDIOVASCULAR: Tachycardia with Regular rate and rhythm without murmurs RESPIRATORY: Clear to auscultation. Breath sounds equal bilaterally. No wheezes, rales, or rhonchi. GASTROINTESTINAL: Abdomen soft, non-tender, no peritoneal signs bowel sounds are present EXTREMITIES: No gross deformities. BACK: No flank tenderness. NEURO: AOx4. SKIN: Warm and dry PSYCH: Not anxious, is cooperative Initial Vital Signs Initial Vital Signs: Vital Signs Temperature 98.8 F 07/16/22 09:30 Pulse Rate 116 H 07/16/22 09:30 Respiratory Rate 24 07/16/22 09:30 Blood Pressure 107/76 07/16/22 09:30 Pulse Oximetry 99 07/16/22 09:30 Oxygen Delivery Method 07/16/22 09:30 Course Orders Ordered: Discontinued Medications Acetaminophen (Acetaminophen 325 Mg Tablet) 650 mg PO Q6H PRN PRN Reason: Fever/Mild Pain (1-3) Last Admin: 07/18/22 04:54 Dose: 650 mg Documented By: CATALINA Hydrocodone Bitart/Acetaminophen (Hydrocodone/Acet 5/325 Tablet) 1 tab PO NOW ONE Stop: 07/16/22 11:59 Last Admin: 07/16/22 12:45 Dose: Not Given Documented By: REBECCA Sodium Chloride (Normal Saline 0.9%) 1,000 mls @ 1,000 mls/hr IV BOLUS ONE Stop: 07/16/22 10:45 Last Infusion: 07/16/22 11:26 Dose: 0 mls/hr Documented By: Admin: 07/16/22 10:14 Dose: 1,000 mls/hr Documented By: ALLEN Sodium Chloride (Normal Saline 0.9%) 1,000 mls @ 1,000 mls/hr IV BOLUS ONE Stop: 07/16/22 10:53 Last Infusion: 07/16/22 15:04 Dose: 100 mls/hr Documented By: Infusion: 07/16/22 14:50 Dose: 0 mls/hr Documented By: Infusion: 07/16/22 12:45 Dose: 100 mls/hr Documented By: Infusion: 07/16/22 11:45 Dose: 0 mls/hr Documented By: Admin: 07/16/22 11:45 Dose: 1,000 mls/hr Documented By: BS POTASSIUM CHLORIDE IN WATER (Potassium Cl 10 Meq/100 Ml Monae) 10 meq in 100 mls @ 100 mls/hr IV Q1H TAMANNA Stop: 07/16/22 13:59 Last Infusion: 07/16/22 15:03 Dose: 100 mls/hr Documented By: Infusion: 07/16/22 14:50 Dose: 0 mls/hr Documented By: Admin: 07/16/22 14:31 Dose: 100 mls/hr Documented By: Infusion: 07/16/22 14:19 Dose: 100 mls/hr Documented By: Admin: 07/16/22 13:19 Dose: 100 mls/hr Documented By: Infusion: 07/16/22 13:18 Dose: 100 mls/hr Documented By: Infusion: 07/16/22 12:40 Dose: 100 mls/hr Documented By: Infusion: 07/16/22 12:05 Dose: 0 mls/hr Documented By: Admin: 07/16/22 11:43 Dose: 100 mls/hr Documented By: Infusion: 07/16/22 11:26 Dose: 0 mls/hr Documented By: Admin: 07/16/22 10:16 Dose: 100 mls/hr Documented By: ALLEN Sodium Chloride (Normal Saline 0.9%) 1,000 mls @ 100 mls/hr IV CONT TAMANNA Stop: 07/17/22 02:59 Last Admin: 07/16/22 16:29 Dose: 100 mls/hr Documented By: JOANN POTASSIUM CHLORIDE IN WATER (Potassium Cl 10 Meq/100 Ml Monae) 10 meq in 100 mls @ 100 mls/hr IV Q1H TAMANNA Stop: 07/16/22 22:59 Last Admin: 07/17/22 04:28 Dose: Not Given Documented By: Admin: 07/17/22 04:28 Dose: Not Given Documented By: Admin: 07/17/22 04:27 Dose: Not Given Documented By: Infusion: 07/17/22 04:23 Dose: 0 mls/hr Documented By: Admin: 07/17/22 01:25 Dose: 100 mls/hr Documented By: Infusion: 07/16/22 23:22 Dose: 100 mls/hr Documented By: Admin: 07/16/22 22:22 Dose: 100 mls/hr Documented By: Infusion: 07/16/22 19:25 Dose: 100 mls/hr Documented By: Admin: 07/16/22 18:25 Dose: 100 mls/hr Documented By: Infusion: 07/16/22 18:25 Dose: 100 mls/hr Documented By: Admin: 07/16/22 17:27 Dose: 100 mls/hr Documented By: Infusion: 07/16/22 17:27 Dose: 100 mls/hr Documented By: Admin: 07/16/22 16:33 Dose: 100 mls/hr Documented By: JOANN Ferumoxytol 1,020 mg/ Sodium (Chloride) 284 mls @ 568 mls/hr IV NOW ONE Stop: 07/16/22 20:29 Last Infusion: 07/17/22 04:28 Dose: 0 mls/hr Documented By: Admin: 07/16/22 20:39 Dose: 568 mls/hr Documented By: CT POTASSIUM CHLORIDE IN WATER (Potassium Cl 10 Meq/100 Ml Monae) 10 meq in 100 mls @ 100 mls/hr IV Q1H TAMANNA Stop: 07/17/22 04:59 Last Infusion: 07/17/22 18:37 Dose: 0 mls/hr Documented By: Admin: 07/17/22 11:00 Dose: 100 mls/hr Documented By: Infusion: 07/17/22 10:45 Dose: 100 mls/hr Documented By: Admin: 07/17/22 09:45 Dose: 100 mls/hr Documented By: Infusion: 07/17/22 09:43 Dose: 100 mls/hr Documented By: Admin: 07/17/22 08:43 Dose: 100 mls/hr Documented By: Infusion: 07/17/22 05:21 Dose: 100 mls/hr Documented By: Admin: 07/17/22 04:21 Dose: 100 mls/hr Documented By: JORGE Melatonin (Melatonin 3 Mg Tablet) 6 mg PO BEDTIME PRN PRN Reason: Insomnia Metoclopramide HCl (Metoclopramide 10 Mg/2 Ml Inj) 10 mg IV NOW ONE Stop: 07/16/22 12:06 Last Admin: 07/16/22 12:10 Dose: 10 mg Documented By: REBECCA Metoclopramide HCl (Metoclopramide 10 Mg/2 Ml Inj) 10 mg IV Q6HR PRN PRN Reason: Nausea And Vomiting Morphine Sulfate (Morphine 2 Mg/Ml Inj) 2 mg IV NOW ONE Stop: 07/16/22 12:06 Last Admin: 07/16/22 12:10 Dose: 2 mg Documented By: REBECCA Naloxone HCl (Naloxone 0.4 Mg/Ml Vial) 0.2 mg IV Q2MIN PRN PRN Reason: Opiate Reversal Ondansetron HCl (Ondansetron 4 Mg/2 Ml Inj) 4 mg IV NOW PRN PRN Reason: Nausea And Vomiting Ondansetron HCl (Ondansetron 4 Mg Odt) 4 mg SL NOW PRN PRN Reason: Nausea And Vomiting Ondansetron HCl (Ondansetron 4 Mg/2 Ml Inj) 4 mg IV Q4HR [facility] Last Admin: 07/17/22 07:22 Dose: Not Given Documented By: Admin: 07/17/22 01:00 Dose: Not Given Documented By: Admin: 07/16/22 22:22 Dose: 4 mg Documented By: Admin: 07/16/22 16:29 Dose: 4 mg Documented By: JOANN Ondansetron HCl (Ondansetron 4 Mg/2 Ml Inj) 4 mg IV Q4HR PRN PRN Reason: Nausea Last Admin: 07/18/22 04:48 Dose: 4 mg Documented By: Admin: 07/17/22 14:59 Dose: 4 mg Documented By: Admin: 07/17/22 09:00 Dose: 4 mg Documented By: TRICIA Pantoprazole Sodium (Pantoprazole 40 Mg Vial) 40 mg IV DAILY [facility] Last Admin: 07/18/22 09:19 Dose: 40 mg Documented By: Admin: 07/17/22 08:43 Dose: 40 mg Documented By: Admin: 07/16/22 16:29 Dose: 40 mg Documented By: JOANN Polyethylene Glycol (Polyethylene Glycol 3350 17 Gm Powd.Pack) 17 gm PO DAILY PRN PRN Reason: Constipation Potassium Chloride (Potassium Chloride 20 Meq Tab) 40 meq PO TIDWM [facility] Stop: 07/17/22 17:01 Last Admin: 07/17/22 18:34 Dose: 40 meq Documented By: Admin: 07/17/22 18:28 Dose: 40 meq Documented By: Admin: 07/17/22 12:23 Dose: 40 meq Documented By: Admin: 07/17/22 08:43 Dose: 40 meq Documented By: TRICIA Sennosides (Sennosides 8.6 Mg Tablet) 8.6 mg PO BID PRN PRN Reason: Constipation Sodium Chloride (Sodium Chloride 0.9% Flush) 10 ml IV PRN PRN PRN Reason: Flush Last Admin: 07/18/22 04:49 Dose: 10 ml Documented By: CATALINA Sodium Chloride (Sodium Chloride 0.9% Flush) 10 ml IV BID [facility] Last Admin: 07/18/22 09:14 Dose: 10 ml Documented By: Admin: 07/17/22 20:17 Dose: 10 ml Documented By: CATALINA Vital Signs Vital signs: Vital Signs - 8 hr 07/16/22 09:30 07/16/22 09:47 07/16/22 09:50 Temperature 98.8 F Pulse Rate 116 H 103 H Respiratory Rate 24 25 H Blood Pressure 107/76 106/76 Pulse Oximetry 99 99 Oxygen Delivery Method Room Air 07/16/22 09:50 07/16/22 10:00 07/16/22 10:00 Temperature Pulse Rate 101 H 108 H Respiratory Rate 24 22 Blood Pressure 104/75 Pulse Oximetry 98 99 Oxygen Delivery Method 07/16/22 10:10 07/16/22 10:10 07/16/22 10:27 Temperature Pulse Rate 103 H Respiratory Rate 24 Blood Pressure 104/72 97/66 Pulse Oximetry 99 Oxygen Delivery Method 07/16/22 10:27 07/16/22 10:30 07/16/22 10:30 Temperature Pulse Rate 86 87 Respiratory Rate 21 21 Blood Pressure 98/65 Pulse Oximetry 100 100 Oxygen Delivery Method 07/16/22 10:40 07/16/22 10:40 07/16/22 10:50 Temperature Pulse Rate 85 Respiratory Rate Blood Pressure 100/65 111/71 Pulse Oximetry 100 Oxygen Delivery Method 07/16/22 10:50 07/16/22 11:00 07/16/22 11:00 Temperature Pulse Rate 83 87 Respiratory Rate 35 H Blood Pressure 103/73 Pulse Oximetry 96 93 Oxygen Delivery Method 07/16/22 11:10 07/16/22 11:10 07/16/22 11:20 Temperature Pulse Rate 87 Respiratory Rate Blood Pressure 112/78 110/69 Pulse Oximetry 97 Oxygen Delivery Method 07/16/22 11:20 07/16/22 11:30 07/16/22 11:30 Temperature Pulse Rate 74 87 Respiratory Rate 39 H 25 H Blood Pressure 119/72 Pulse Oximetry 98 100 Oxygen Delivery Method 07/16/22 11:45 07/16/22 11:45 07/16/22 11:50 Temperature Pulse Rate 86 Respiratory Rate 17 Blood Pressure 114/80 116/78 Pulse Oximetry 100 Oxygen Delivery Method 07/16/22 11:50 07/16/22 12:00 07/16/22 12:00 Temperature Pulse Rate 100 H 102 H Respiratory Rate 24 26 H Blood Pressure 118/72 Pulse Oximetry 100 100 Oxygen Delivery Method 07/16/22 12:11 07/16/22 12:11 07/16/22 12:20 Temperature Pulse Rate 92 H Respiratory Rate 23 Blood Pressure 108/70 108/71 Pulse Oximetry 99 Oxygen Delivery Method 07/16/22 12:20 07/16/22 12:30 07/16/22 12:30 Temperature Pulse Rate 79 85 Respiratory Rate 24 24 Blood Pressure 103/67 Pulse Oximetry 99 99 Oxygen Delivery Method Room Air 07/16/22 12:33 07/16/22 12:33 07/16/22 12:40 Temperature Pulse Rate 85 Respiratory Rate 24 Blood Pressure 105/67 104/64 Pulse Oximetry 100 Oxygen Delivery Method 07/16/22 12:40 07/16/22 12:50 07/16/22 12:50 Temperature Pulse Rate 94 H 82 Respiratory Rate 20 21 Blood Pressure 104/74 Pulse Oximetry 93 98 Oxygen Delivery Method 07/16/22 13:00 07/16/22 13:00 07/16/22 13:10 Temperature Pulse Rate 80 Respiratory Rate 26 H Blood Pressure 111/78 106/69 Pulse Oximetry 100 Oxygen Delivery Method 07/16/22 13:10 07/16/22 13:20 07/16/22 13:20 Temperature Pulse Rate 90 79 Respiratory Rate 25 H 25 H Blood Pressure 106/70 Pulse Oximetry 96 100 Oxygen Delivery Method 07/16/22 13:30 07/16/22 13:30 07/16/22 13:40 Temperature Pulse Rate 79 Respiratory Rate 24 Blood Pressure 99/65 105/70 Pulse Oximetry 98 Oxygen Delivery Method 07/16/22 13:40 07/16/22 13:50 07/16/22 13:50 Temperature Pulse Rate 82 79 Respiratory Rate 24 25 H Blood Pressure 102/69 Pulse Oximetry 100 100 Oxygen Delivery Method 07/16/22 14:00 07/16/22 14:00 07/16/22 14:10 Temperature Pulse Rate 82 Respiratory Rate 24 Blood Pressure 108/73 110/71 Pulse Oximetry 99 Oxygen Delivery Method Room Air 07/16/22 14:10 07/16/22 14:20 07/16/22 14:20 Temperature Pulse Rate 83 80 Respiratory Rate 36 H 25 H Blood Pressure 109/72 Pulse Oximetry 99 98 Oxygen Delivery Method MDM - Weakness Lab Data 07/16/22 09:46 07/16/22 09:46 Labs: Lab Results 07/16/22 07/16/22 07/16/22 Range/Units 09:35 09:46 09:46 WBC 12.8 H (4.5-11.0) X10^3/uL RBC 5.50 H (4.0-5.2) X10^6/uL Hgb 11.0 L (12.0-16.0) g/dL Hct 35.8 L (36-46) % MCV 65.0 L (80-100) fL MCH 19.9 L (26-34) PG MCHC 30.7 (30-36) % RDW 18.1 H (11.6-14.8) % Plt Count 608 H (150-400) X10^3/uL Neut % (Auto) 85.5 H (50-75) % Lymph % (Auto) 8.9 L (25-40) % Dickson % (Auto) 4.9 (3-14) % Eos % (Auto) 0.1 L (2-4) % Baso % (Auto) 0.6 (0-2) % Neut # (Auto) 50663 H (8048-9248) /uL Lymph # (Auto) 1100 (1730-1016) /uL Dickson # (Auto) 600 (0-900) /uL Eos # (Auto) 0 (0-450) /uL Baso # (Auto) 100 (0-100) /uL Platelet Estimate Incr RBC Morphology See Hypochromasia 2+ H Anisocytosis 2+ H Microcytosis 2+ H PT 13.1 H (10.1-12.7) SECONDS INR 1.1 (0.9-1.3) APTT 28 (26-36) SECONDS Sodium (137-145) mmol/L Potassium (3.4-5.1) mmol/L Chloride (98-107) mmol/L Carbon Dioxide (22-32) mmol/L BUN (7-17) mg/dL Creatinine (0.52-1.04) mg/dL Estimated GFR (>60) mL/min BUN/Creatinine Ratio (6-22) Glucose (70-100) mg/dL Lactate (0.7-2.1) mmol/L Calcium (8.4-10.2) mg/dL Magnesium (1.6-2.3) mg/dL Iron (37-170) ug/dL TIBC (265-497) ug/dL % Saturation (15-50) % Transferrin (206-381) mg/dL Ferritin (6-137) ng/mL Total Bilirubin (0.2-1.3) mg/dL AST (14-36) IU/L ALT (<35) IU/L Alkaline Phosphatase (38-126) U/L Total Creatine Kinase (30-135) U/L CK-MB (CK-2) CK-MB (CK-2) Rel Index Troponin I (0.01-0.034) ng/mL Total Protein (6.3-8.2) g/dL Albumin (3.5-5.0) g/dL Globulin (1.7-4.1) g/dL Albumin/Globulin Ratio (1.0-2.8) Lipase (23-300) U/L Procalcitonin (<0.5) ng/mL Serum , Qual Negative (Negative) Urine RBC (0-5/HPF) Urine WBC (0-5/HPF) Ur Squamous Epith Cells (0-5/HPF) Amorphous Sediment Urine Bacteria (None) SARS-CoV-2 (PCR) (Negative) Influenza A (RT-PCR) (NEGATIVE) Influenza B (RT-PCR) (NEGATIVE) RSV (PCR) (Negative) 07/16/22 07/16/22 07/16/22 Range/Units 09:46 09:46 09:46 WBC (4.5-11.0) X10^3/uL RBC (4.0-5.2) X10^6/uL Hgb (12.0-16.0) g/dL Hct (36-46) % MCV (80-100) fL MCH (26-34) PG MCHC (30-36) % RDW (11.6-14.8) % Plt Count (150-400) X10^3/uL Neut % (Auto) (50-75) % Lymph % (Auto) (25-40) % Dickson % (Auto) (3-14) % Eos % (Auto) (2-4) % Baso % (Auto) (0-2) % Neut # (Auto) (0285-4755) /uL Lymph # (Auto) (0963-0226) /uL Dickson # (Auto) (0-900) /uL Eos # (Auto) (0-450) /uL Baso # (Auto) (0-100) /uL Platelet Estimate RBC Morphology Hypochromasia Anisocytosis Microcytosis PT (10.1-12.7) SECONDS INR (0.9-1.3) APTT (26-36) SECONDS Sodium 140 (137-145) mmol/L Potassium 2.4 L* (3.4-5.1) mmol/L Chloride 86 L (98-107) mmol/L Carbon Dioxide 40 H* (22-32) mmol/L BUN 17 (7-17) mg/dL Creatinine 0.71 (0.52-1.04) mg/dL Estimated GFR > 60 (>60) mL/min BUN/Creatinine Ratio 23.9 H (6-22) Glucose 115 H (70-100) mg/dL Lactate 1.8 (0.7-2.1) mmol/L Calcium 9.1 (8.4-10.2) mg/dL Magnesium 2.1 (1.6-2.3) mg/dL Iron (37-170) ug/dL TIBC (265-497) ug/dL % Saturation (15-50) % Transferrin (206-381) mg/dL Ferritin (6-137) ng/mL Total Bilirubin 0.9 (0.2-1.3) mg/dL AST 43 H (14-36) IU/L ALT 20 (<35) IU/L Alkaline Phosphatase 71 (38-126) U/L Total Creatine Kinase 30 (30-135) U/L CK-MB (CK-2) TNP CK-MB (CK-2) Rel Index TNP Troponin I < 0.012 (0.01-0.034) ng/mL Total Protein 8.1 (6.3-8.2) g/dL Albumin 4.2 (3.5-5.0) g/dL Globulin 3.9 (1.7-4.1) g/dL Albumin/Globulin Ratio 1.1 (1.0-2.8) Lipase 118 (23-300) U/L Procalcitonin 0.05 (<0.5) ng/mL Serum , Qual (Negative) Urine RBC (0-5/HPF) Urine WBC (0-5/HPF) Ur Squamous Epith Cells (0-5/HPF) Amorphous Sediment Urine Bacteria (None) SARS-CoV-2 (PCR) (Negative) Influenza A (RT-PCR) (NEGATIVE) Influenza B (RT-PCR) (NEGATIVE) RSV (PCR) (Negative) 07/16/22 07/16/22 07/16/22 Range/Units 09:46 09:46 10:07 WBC (4.5-11.0) X10^3/uL RBC (4.0-5.2) X10^6/uL Hgb (12.0-16.0) g/dL Hct (36-46) % MCV (80-100) fL MCH (26-34) PG MCHC (30-36) % RDW (11.6-14.8) % Plt Count (150-400) X10^3/uL Neut % (Auto) (50-75) % Lymph % (Auto) (25-40) % Dickson % (Auto) (3-14) % Eos % (Auto) (2-4) % Baso % (Auto) (0-2) % Neut # (Auto) (3861-2483) /uL Lymph # (Auto) (5991-8288) /uL Dickson # (Auto) (0-900) /uL Eos # (Auto) (0-450) /uL Baso # (Auto) (0-100) /uL Platelet Estimate RBC Morphology Hypochromasia Anisocytosis Microcytosis PT (10.1-12.7) SECONDS INR (0.9-1.3) APTT (26-36) SECONDS Sodium (137-145) mmol/L Potassium (3.4-5.1) mmol/L Chloride (98-107) mmol/L Carbon Dioxide (22-32) mmol/L BUN (7-17) mg/dL Creatinine (0.52-1.04) mg/dL Estimated GFR (>60) mL/min BUN/Creatinine Ratio (6-22) Glucose (70-100) mg/dL Lactate (0.7-2.1) mmol/L Calcium (8.4-10.2) mg/dL Magnesium (1.6-2.3) mg/dL Iron 21 L (37-170) ug/dL TIBC 441 (265-497) ug/dL % Saturation 5 L (15-50) % Transferrin 334 (206-381) mg/dL Ferritin 4 L (6-137) ng/mL Total Bilirubin (0.2-1.3) mg/dL AST (14-36) IU/L ALT (<35) IU/L Alkaline Phosphatase (38-126) U/L Total Creatine Kinase (30-135) U/L CK-MB (CK-2) CK-MB (CK-2) Rel Index Troponin I (0.01-0.034) ng/mL Total Protein (6.3-8.2) g/dL Albumin (3.5-5.0) g/dL Globulin (1.7-4.1) g/dL Albumin/Globulin Ratio (1.0-2.8) Lipase (23-300) U/L Procalcitonin (<0.5) ng/mL Serum , Qual (Negative) Urine RBC (0-5/HPF) Urine WBC (0-5/HPF) Ur Squamous Epith Cells (0-5/HPF) Amorphous Sediment Urine Bacteria (None) SARS-CoV-2 (PCR) Negative (Negative) Influenza A (RT-PCR) Flu a negative (NEGATIVE) Influenza B (RT-PCR) Flu b negative (NEGATIVE) RSV (PCR) Negative (Negative) 02/15/23 Range/Units 13:13 WBC (4.5-11.0) X10^3/uL RBC (4.0-5.2) X10^6/uL Hgb (12.0-16.0) g/dL Hct (36-46) % MCV (80-100) fL MCH (26-34) PG MCHC (30-36) % RDW (11.6-14.8) % Plt Count (150-400) X10^3/uL Neut % (Auto) (50-75) % Lymph % (Auto) (25-40) % Dickson % (Auto) (3-14) % Eos % (Auto) (2-4) % Baso % (Auto) (0-2) % Neut # (Auto) (9173-4244) /uL Lymph # (Auto) (0627-0711) /uL Dickson # (Auto) (0-900) /uL Eos # (Auto) (0-450) /uL Baso # (Auto) (0-100) /uL Platelet Estimate RBC Morphology Hypochromasia Anisocytosis Microcytosis PT (10.1-12.7) SECONDS INR (0.9-1.3) APTT (26-36) SECONDS Sodium (137-145) mmol/L Potassium (3.4-5.1) mmol/L Chloride (98-107) mmol/L Carbon Dioxide (22-32) mmol/L BUN (7-17) mg/dL Creatinine (0.52-1.04) mg/dL Estimated GFR (>60) mL/min BUN/Creatinine Ratio (6-22) Glucose (70-100) mg/dL Lactate (0.7-2.1) mmol/L Calcium (8.4-10.2) mg/dL Magnesium (1.6-2.3) mg/dL Iron (37-170) ug/dL TIBC (265-497) ug/dL % Saturation (15-50) % Transferrin (206-381) mg/dL Ferritin (6-137) ng/mL Total Bilirubin (0.2-1.3) mg/dL AST (14-36) IU/L ALT (<35) IU/L Alkaline Phosphatase (38-126) U/L Total Creatine Kinase (30-135) U/L CK-MB (CK-2) CK-MB (CK-2) Rel Index Troponin I (0.01-0.034) ng/mL Total Protein (6.3-8.2) g/dL Albumin (3.5-5.0) g/dL Globulin (1.7-4.1) g/dL Albumin/Globulin Ratio (1.0-2.8) Lipase (23-300) U/L Procalcitonin (<0.5) ng/mL Serum , Qual (Negative) Urine RBC None seen (0-5/HPF) Urine WBC 0-1/hpf (0-5/HPF) Ur Squamous Epith Cells 5-10 /hpf H (0-5/HPF) Amorphous Sediment 1+ Urine Bacteria Few (2-10) H (None) SARS-CoV-2 (PCR) (Negative) Influenza A (RT-PCR) (NEGATIVE) Influenza B (RT-PCR) (NEGATIVE) RSV (PCR) (Negative) Urine Dip Bedside Urine Glucose Negative Bedside Urine Bilirubin - Negative Bedside Urine Ketone +++ 80 Urine Specific Holden 1.000 Bedside Urine Occult Blood - Negative Bedside Urine pH 9.0 Bedside Urine Protein + 30 Bedside Urine Urobilinogen 2+ 4mg Bedside Urine Nitrite - Negative Bedside Urine Leukocytes - Negative Esterase Imaging Data CT chest abdomen and pelvis: Radiologist Impression: [place] [address] CT Scan Report Signed Patient: Penelope Luu MR#: [id number] : 1980 Acct:[id number] Age/Sex: 42 / F Date of Service: 07/16/22 Loc: ED Accession Number: [id number] ?? Procedure: CT chest abd pel w con Ordering Provider: Jluis To MD PROCEDURE:? CT CHEST ABD PEL W CON ? INDICATIONS:? sepsis ? TECHNIQUE:? After the administration of intravenous contrast, 5 mm thick sections acquired from the lung apices to the symphysis.? 5 mm coronal and sagittal reformats were performed, with additional 7 mm MIP reformats through the lungs.? For radiation dose reduction, the following was used:? automated exposure control, adjustment of mA and/or kV according to patient size.? ? COMPARISON:? None. ? FINDINGS:? Image quality:? Excellent.? ? CHEST:? Lungs and pleura:? 3-4 mm solid nodule in the left lung apex (). No acute airspace opacities.? No pleural effusions or pneumothorax.? Central and peripheral airways appear patent and normal in caliber.? ? Mediastinum:? Heart size is normal.? No pericardial effusion.? No mediastinal or hilar adenopathy by size criteria.? Thoracic aorta and central pulmonary arteries are normal in size.? Esophagus is normal in caliber.? No hiatal hernia.? ? Chest wall:? No axillary or supraclavicular adenopathy by size criteria.? Thyroid gland is unremarkable. .? ? ? ABDOMEN:? Solid organs:? Liver is normal in size and enhancement.? Gallbladder is distended with stones; no pericholecystic edema or wall thickening.? Biliary system is non dilated.? Pancreas enhances normally.? Spleen is normal in size and enhancement.? No adrenal nodules.? Kidneys demonstrate normal size and enhancement, without hydronephrosis.? ? Peritoneum and bowel:? Bowel loops demonstrate normal wall thickness and caliber.? No free fluid or air.? ? Nodes and vessels:? No retroperitoneal or mesenteric adenopathy by size criteria.? Aorta and inferior vena cava are normal in size.? ? Miscellaneous:? No ventral hernias.? ? ? PELVIS:? Genitourinary:? Bladder wall thickness is normal.? Left adnexal mass containing macroscopic fat and soft tissue attenuation measuring 9.1 x 5.7 cm.? There is asymmetric positioning of the uterus to the left.? ? Miscellaneous:? No inguinal hernias or adenopathy.? ? Bones:? No suspicious bony lesions.? No vertebral body compression fractures.? ? IMPRESSION:? 1. Cholelithiasis with mildly distended gallbladder.? Findings may indicate early acute cholecystitis in the appropriate clinical setting.? No secondary indicators of acute cholecystitis at this time. 2. Left adnexal mass containing macroscopic fat and soft tissue attenuation measuring 9.1 x 5.7 cm.? There is asymmetric positioning of the uterus to the left.? 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 The asymmetric positioning of the uterus may indicate torsion.? Correlate with left lower quadrant pain and consider pelvic ultrasound if positive or a high clinical concern for torsion. 3. Sub 4-mm solid nodule in the left lung apex.? Consider 12 month follow-up if this patient is at high risk for developing lung cancer, per [employer] guidelines. ? ? Dictated by: Mauricio Pastor M.D. on 07/16/2022 at 10:53 ? ? Approved by: Mauricio Pastor M.D. on 07/16/2022 at 11:02 ? US - EMU FARMER: Radiologist Impression: [address] [address] Ultrasound Report Signed Patient: Penelope Luu MR#: [id number] : 1980 Acct:[id number] Age/Sex: 42 / F Date of Service: 07/16/22 Loc: ED Accession Number: [id number] ?? Procedure: US pelvic complete Ordering Provider: Jluis To MD PROCEDURE:? US PELVIC COMPLETE ? INDICATIONS:? LEFT ADNEXAL MASS ON CT; PAIN ? TECHNIQUE:? Real-time scanning was performed of the pelvic organs, with image documentation.? Additional endovaginal scanning was necessary due to incomplete visualization of the adnexal and endometrial structures by transabdominal scanning.? ? COMPARISON:? None. ? FINDINGS:? ?? Uterus:? Not visualized. ? Ovaries:? 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 Peripheral blood flow present.? Right ovary not visualized. ? Other:? No pathologic free abdominal or pelvic fluid. ? ? IMPRESSION:? 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 Peripheral blood flow present. ? ? We strive to produce accurate, complete, and clear reports of imaging services. To assist us in improving patient care, this report was composed using standard report templates and voice recognition software. Therefore, it may contain abnormal punctuation, insertions and/or omissions. Occasional wrong-word or sound-alike substitutions may occur. Though we review the report and make efforts to correct it, we do recommend that the report be read carefully in proper context to recognize any text inaccuracies. ? ? Dictated by: Mauricio Pastor M.D. on 07/16/2022 at 12:41 ? ? Approved by: Mauricio Pastor M.D. on 07/16/2022 at 12:45 ? US - abdomen: Radiologist Impression: [address] [address] Ultrasound Report Signed Patient: Penelope Luu MR#: [id number] : 1980 Acct:[id number] Age/Sex: 42 / F Date of Service: 07/16/22 Loc: ED Accession Number: [id number] ?? Procedure: US abdomen limited Ordering Provider: Jluis To MD PROCEDURE:? US ABDOMEN LIMITED ? INDICATIONS:? GALLSSTONES ON CT ? TECHNIQUE:? Real-time scanning was performed of the abdominal and retroperitoneal organs, with image documentation.? ? COMPARISON:? Same day CT. ? FINDINGS:? ? Liver:? Increased liver echogenicity, with posterior attenuation, most consistent with hepatic steatosis. ? Gallbladder:? Cholelithiasis.? Negative sonographic Harris's sign.? No wall thickening. ? Biliary ducts:? Intrahepatic bile ducts are non-dilated.? Extrahepatic bile duct caliber measures 3 mm.? Normal is 6-7 mm or less in diameter, or 10 mm or less post-cholecystectomy.? ? Pancreas:? Not visualized.? ? IMPRESSION:? Cholelithiasis without evidence of acute cholecystitis. ? ? ? Dictated by: Mauricio Pastor M.D. on 07/16/2022 at 12:39 ? ? Approved by: Mauricio Pastor M.D. on 07/16/2022 at 12:41 ? [facility] Narrative Medical decision making narrative: Patient brought in by from home for intractable vomiting and generalized weakness and weight loss. Patient has lost between 50 and 70 lb in the past 3 months, not purposeful. Has had vomiting for the past 1 week with low potassium. Seen here 1 month ago for the same. Seen here 2 days ago for the same. Unable to hold medications. Denies any chest pain or abdominal pain. No history of cancer. No fever or chills. No black or bloody stools or hematemesis. No night sweats After history and exam CBC CMP lactic acid procalcitonin CT chest abdomen and pelvis EKG normal saline have been ordered [facility] CC: Weight loss/vomiting Complicating co-morbidities: Hypokalemia/weight loss Data collected from: Patient and Medical records reviewed: Visit here last month as well as 2 days ago in the emergency department Differential considered: Includes but not limited to cancer, metastatic cancer/electrolyte imbalance/gastritis/colitis/sepsis Exam documented above, pertinent findings include: Tachycardia/weight loss Lab Test results independently reviewed as above. Pertinent findings: CBC WBC shows 12.8 hemoglobin 11.0 platelets 608, potassium 2.4 chloride 86 bicarb 40 AST 43 ALT 20 lactic acid 1.8 GFR greater than 60, troponin less than 0.012 procalcitonin 0.05, negative test Independently reviewed EKG as above sinus tachycardia rate [address] elevation or depression Imaging studies independently reviewed: CT chest abdomen and pelvis shows cholelithiasis, left adnexal teratoma, ultrasound abdomen shows cholelithiasis w ithout cholecystitis. 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 Peripheral blood flow present. Consultations: 2:15 p.m.. Spoke with hospitalist, Dr. Bray, he will admit patient. Treatments: Potassium replacement IV, normal saline, morphine, Reglan Re-evaluations: Patient feeling better after medications. I did review results with patient and and they do agree for admit. Discussion: Appropriate for admission. Incidental findings of teratoma and cholelithiasis. Patient will need admission as has been discharge twice already in the past month. Not improving with hypokalemia. Patient nontoxic. Upper for outpatient gallbladder evaluation as well as teratoma with rn bone marrow transplant. Diagnosis: Hypokalemia, intractable vomiting Discharge Plan Departure Patient Disposition: Admitted as Observation Clinical Impression: Hypokalemia, Intractable nausea and vomiting Admit Date/Time: 07/16/22 14:25 Admit Provider: Bruce Bray
[2022-07-16 10:01] LABS: Basophils Absolute Auto 100 /uL (0-100); Basophils Percent Auto 0.6 % (0-2); Eosinophils Absolute Auto 0 /uL (0-450); Eosinophils Percent Auto 0.1 % (2-4); Hematocrit 35.8 % (36-46); Lymphocytes Absolute Auto 1100 /uL (1100-4500); Lymphocytes Percent Auto 8.9 % (25-40); Mean Corpuscular HGB Conc 30.7 % (30-36); Mean Corpuscular Hemoglobin 19.9 PG (26-34); Monocytes Absolute Auto 600 /uL (0-900); Monocytes Percent Auto 4.9 % (3-14); Neutrophils Absolute Auto 11000 /uL (1500-7000); Neutrophils Percent Auto 85.5 % (50-75); Platelet Count 608 X10^3/uL (150-400); Red Cell Distribution Width 18.1 % (11.6-14.8); White Blood Cell Count 12.8 X10^3/uL (4.5-11.0)
[2022-07-16 10:14] LABS: Add Manual Diff / Slide Review SLIDE REVIEW
[2022-07-16] MEDS: SODIUM CHLORIDE 0.9% 1,000 ML 1000 ML IV ×2 (10:14→11:45)
[2022-07-16 10:16] LABS: INR 1.1 (0.9-1.3); Prothrombin Time 13.1 SECONDS (10.1-12.7)
[2022-07-16] MEDS: POTASSIUM CHLORIDE IN WATER 10 MEQ/100 ML PIGGYBACK 100 MEQ IV ×8 (10:16→22:22)
[2022-07-16 10:17] LABS: Lactate (Lactic Acid) 1.8 mmol/L (0.7-2.1)
[2022-07-16 10:18] LABS: PTT Partial Thromboplastin Tim 28 SECONDS (26-36)
[2022-07-16 10:19] LABS: Alanine Aminotransferase 20 IU/L (<35); Albumin 4.2 g/dL (3.5-5.0); Albumin Globulin Ratio 1.1 (1.0-2.8); Alkaline Phosphatase 71 U/L (38-126); Aspartate Aminotransferase 43 IU/L (14-36); BUN Creatinine Ratio 23.9 (6-22); Bilirubin Total 0.9 mg/dL (0.2-1.3); Blood Urea Nitrogen 17 mg/dL (7-17); Calcium 9.1 mg/dL (8.4-10.2); Chloride 86 mmol/L (98-107); Creatine Kinase 30 U/L (30-135); Estimated Glomerular Filt Rate > 60 mL/min (>60); Globulin 3.9 g/dL (1.7-4.1); Glucose 115 mg/dL (70-100); Lipase 118 U/L (23-300); Sodium 140 mmol/L (137-145); Total Protein 8.1 g/dL (6.3-8.2)
[2022-07-16 10:20] LABS: Anisocytosis 2+; Hypochromasia 2+; Microcytosis 2+
[2022-07-16 10:21] LABS: Platelet Estimate Incr; RBC Morphology See
[2022-07-16 10:25] LABS: HEMOLYSIS 21 (0-50)
[2022-07-16 10:27] LABS: Carbon Dioxide 40 mmol/L (22-32); Potassium 2.4 mmol/L (3.4-5.1)
[2022-07-16 10:30] LABS: Troponin I < 0.012 ng/mL (0.01-0.034)
[2022-07-16 10:35] LABS: Procalcitonin 0.05 ng/mL (<0.5)
[2022-07-16 10:58] LABS: Pregnancy Test Serum,Qual Negative (Negative)
[2022-07-16 11:15] LABS: Influenza A - CEPHEID Flu A NEGATIVE (NEGATIVE); Influenza B - CEPHEID Flu B NEGATIVE (NEGATIVE); Respiratory Syncytial Virus Negative (Negative)
--- NOTE | 2022-07-16 11:20 | DI.US.S_ITS ---
PROCEDURE: US PELVIC COMPLETE INDICATIONS: LEFT ADNEXAL MASS ON CT; PAIN TECHNIQUE: Real-time scanning was performed of the pelvic organs, with image documentation. Additional endovaginal scanning was necessary due to incomplete visualization of the adnexal and endometrial structures by transabdominal scanning. COMPARISON: None. FINDINGS: Uterus: Not visualized. Ovaries: Left ovary mass with imaging features consistent with a mature teratoma. Peripheral blood flow present. Right ovary not visualized. Other: No pathologic free abdominal or pelvic fluid. IMPRESSION: Left ovary mass with imaging features consistent with a mature teratoma. Peripheral blood flow present. We strive to produce accurate, complete, and clear reports of imaging services. To assist us in improving patient care, this report was composed using standard report templates and voice recognition software. Therefore, it may contain abnormal punctuation, insertions and/or omissions. Occasional wrong-word or sound-alike substitutions may occur. Though we review the report and make efforts to correct it, we do recommend that the report be read carefully in proper context to recognize any text inaccuracies. Dictated by: Mauricio Pastor M.D. on 07/16/2022 at 12:41 Approved by: Mauricio Pastor M.D. on 07/16/2022 at 12:45
--- NOTE | 2022-07-16 11:20 | DI.US.S_ITS ---
PROCEDURE: US ABDOMEN LIMITED INDICATIONS: GALLSSTONES ON CT TECHNIQUE: Real-time scanning was performed of the abdominal and retroperitoneal organs, with image documentation. COMPARISON: Same day CT. FINDINGS: Liver: Increased liver echogenicity, with posterior attenuation, most consistent with hepatic steatosis. Gallbladder: Cholelithiasis. Negative sonographic Harris's sign. No wall thickening. Biliary ducts: Intrahepatic bile ducts are non-dilated. Extrahepatic bile duct caliber measures 3 mm. Normal is 6-7 mm or less in diameter, or 10 mm or less post-cholecystectomy. Pancreas: Not visualized. IMPRESSION: Cholelithiasis without evidence of acute cholecystitis. Dictated by: Mauricio Pastor M.D. on 07/16/2022 at 12:39 Approved by: Mauricio Pastor M.D. on 07/16/2022 at 12:41
[2022-07-16 11:28] LABS: COVID-19 CEPHEID 4-PLEX PCR Negative (Negative)
[2022-07-16] MEDS: MORPHINE 2 MG/ML INJ IV (12:10)
[2022-07-16] MEDS: METOCLOPRAMIDE 10 MG/2 ML INJ IV (12:10)
[2022-07-16 13:08] LABS: Magnesium 2.1 mg/dL (1.6-2.3)
[2022-07-16 13:49] LABS: RBC Urine None Seen (0-5/HPF); WBC Urine 0-1/HPF (0-5/HPF)
[2022-07-16 13:50] LABS: Amorphous Sediment Urine 1+; Bacteria Urine Few (2-10); Squamous Epithelial Cell Urine 5-10 /HPF (0-5/HPF)
[2022-07-16 15:28] LABS: HEMOLYSIS < 15 (0-50); Iron 21 ug/dL (37-170)
[2022-07-16 15:38] LABS: Percent Iron Saturation 5 % (15-50); Total Iron Binding Capacity 441 ug/dL (265-497); Transferrin 334 mg/dL (206-381)
--- NOTE | 2022-07-16 15:58 | P.HP_ITS ---
History of Present Illness History of Present Illness Chief complaint: Potassium/chest up is numb arms numb/V Narrative: Penelope Luu is a 42yo F without significant past medical history who presents with hypokalemia and intractable NV. Patient says she last had intractable NV in Jun 2021 due to unknown cause and has had trouble eating since then, and can only tolerate small portions of meals or else she will vomit it back up. She has been losing weight due to this and has lost 70lbs since May 2022. Her appetite has been lacking as well. She says she deals with GERD and her reflux has been worse lately because she can't been able to take omeprazole due to her nausea. She developed vomiting nonstop since 07/12 after eating [place] at a restaurant. Hasn't been able to eat due to the nausea. She also notes some dark stools. Denies CP, diarrhea, yellowing of skin, RUQ pain or dizziness. In the ED found to have potassium of 2.4, WBC 12.8, Hgb 11 with MCV 65. Lactate normal, mag normal. Patient History Medical History Hypokalemia Family & Social History Social History: household members spouse Prior Living Arrangements House Safety & Behavioral: Feels Safe in Current Yes Environment Been Physically Hurt or No Threatened By a Person Tobacco & Substance use: Tobacco type cigarettes Smoking Status Current some day smoker alcohol intake current alcohol intake frequency a few times a month Substance Use Type does not use Meds Home Medications and Allergies Home Medications Medication Instructions Recorded Confirmed Type furosemide 40 mg tablet (Lasix) 40 mg PO DAILY #5 tabs 09/26/19 07/16/22 Rx ondansetron 4 mg disintegrating 4 mg PO Q6H PRN nausea and 07/14/22 07/16/22 Rx tablet vomiting #14 tabs potassium chloride 10 mEq 10 meq PO DAILY 5 days #5 tabs 07/14/22 07/16/22 Rx tablet,extended release metoclopramide HCl 10 mg tablet 10 mg PO PRN PRN Nausea 07/16/22 07/16/22 History Allergies Allergy/AdvReac Type Severity Reaction Status Date / Time No Known Drug Allergies Allergy Unknown Verified 07/16/22 09:30 [NO KNOWN DRUG ALLERGIES] Review of Systems Review of Systems Narrative: All other systems reviewed with the patient and are negative unless otherwise stated. Exam Vital Signs (past 8 hours): - 07/16/22 09:30 07/16/22 09:47 07/16/22 09:50 Temperature 98.8 F Pulse Rate 116 H 103 H Respiratory Rate 24 25 H Blood Pressure 107/76 106/76 Pulse Oximetry 99 99 Oxygen Delivery Method Room Air 07/16/22 09:50 07/16/22 10:00 07/16/22 10:00 Temperature Pulse Rate 101 H 108 H Respiratory Rate 24 22 Blood Pressure 104/75 Pulse Oximetry 98 99 Oxygen Delivery Method 07/16/22 10:10 07/16/22 10:10 07/16/22 10:27 Temperature Pulse Rate 103 H Respiratory Rate 24 Blood Pressure 104/72 97/66 Pulse Oximetry 99 Oxygen Delivery Method 07/16/22 10:27 07/16/22 10:30 07/16/22 10:30 Temperature Pulse Rate 86 87 Respiratory Rate 21 21 Blood Pressure 98/65 Pulse Oximetry 100 100 Oxygen Delivery Method 07/16/22 10:40 07/16/22 10:40 07/16/22 10:50 Temperature Pulse Rate 85 Respiratory Rate Blood Pressure 100/65 111/71 Pulse Oximetry 100 Oxygen Delivery Method 07/16/22 10:50 07/16/22 11:00 07/16/22 11:00 Temperature Pulse Rate 83 87 Respiratory Rate 35 H Blood Pressure 103/73 Pulse Oximetry 96 93 Oxygen Delivery Method 07/16/22 11:10 07/16/22 11:10 07/16/22 11:20 Temperature Pulse Rate 87 Respiratory Rate Blood Pressure 112/78 110/69 Pulse Oximetry 97 Oxygen Delivery Method 07/16/22 11:20 07/16/22 11:30 07/16/22 11:30 Temperature Pulse Rate 74 87 Respiratory Rate 39 H 25 H Blood Pressure 119/72 Pulse Oximetry 98 100 Oxygen Delivery Method 07/16/22 11:45 07/16/22 11:45 07/16/22 11:50 Temperature Pulse Rate 86 Respiratory Rate 17 Blood Pressure 114/80 116/78 Pulse Oximetry 100 Oxygen Delivery Method 07/16/22 11:50 07/16/22 12:00 07/16/22 12:00 Temperature Pulse Rate 100 H 102 H Respiratory Rate 24 26 H Blood Pressure 118/72 Pulse Oximetry 100 100 Oxygen Delivery Method 07/16/22 12:11 07/16/22 12:11 07/16/22 12:20 Temperature Pulse Rate 92 H Respiratory Rate 23 Blood Pressure 108/70 108/71 Pulse Oximetry 99 Oxygen Delivery Method 07/16/22 12:20 07/16/22 12:30 07/16/22 12:30 Temperature Pulse Rate 79 85 Respiratory Rate 24 24 Blood Pressure 103/67 Pulse Oximetry 99 99 Oxygen Delivery Method Room Air 07/16/22 12:33 07/16/22 12:33 07/16/22 12:40 Temperature Pulse Rate 85 Respiratory Rate 24 Blood Pressure 105/67 104/64 Pulse Oximetry 100 Oxygen Delivery Method 07/16/22 12:40 07/16/22 12:50 07/16/22 12:50 Temperature Pulse Rate 94 H 82 Respiratory Rate 20 21 Blood Pressure 104/74 Pulse Oximetry 93 98 Oxygen Delivery Method 07/16/22 13:00 07/16/22 13:00 07/16/22 13:10 Temperature Pulse Rate 80 Respiratory Rate 26 H Blood Pressure 111/78 106/69 Pulse Oximetry 100 Oxygen Delivery Method 07/16/22 13:10 07/16/22 13:20 07/16/22 13:20 Temperature Pulse Rate 90 79 Respiratory Rate 25 H 25 H Blood Pressure 106/70 Pulse Oximetry 96 100 Oxygen Delivery Method 07/16/22 13:30 07/16/22 13:30 07/16/22 13:40 Temperature Pulse Rate 79 Respiratory Rate 24 Blood Pressure 99/65 105/70 Pulse Oximetry 98 Oxygen Delivery Method 07/16/22 13:40 07/16/22 13:50 07/16/22 13:50 Temperature Pulse Rate 82 79 Respiratory Rate 24 25 H Blood Pressure 102/69 Pulse Oximetry 100 100 Oxygen Delivery Method 07/16/22 14:00 07/16/22 14:00 07/16/22 14:10 Temperature Pulse Rate 82 Respiratory Rate 24 Blood Pressure 108/73 110/71 Pulse Oximetry 99 Oxygen Delivery Method Room Air 07/16/22 14:10 07/16/22 14:20 07/16/22 14:20 Temperature Pulse Rate 83 80 Respiratory Rate 36 H 25 H Blood Pressure 109/72 Pulse Oximetry 99 98 Oxygen Delivery Method 07/16/22 14:30 07/16/22 14:30 07/16/22 14:40 Temperature Pulse Rate 80 82 Respiratory Rate 24 21 Blood Pressure 112/77 Pulse Oximetry 99 98 Oxygen Delivery Method Room Air 07/16/22 14:40 07/16/22 15:48 Temperature 97.1 F L Pulse Rate 86 Respiratory Rate 16 Blood Pressure 109/73 112/78 Pulse Oximetry 100 Oxygen Delivery Method Oxygen Delivery Method Room Air Narrative Exam Narrative: GEN: no acute distress, appears much older than stated age, evidence of temporal wasting HEENT: moist mucous membranes, PERRL NECK: trachea midline, no JVD CV: regular rate and rhythm, no murmurs PULM: clear bilaterally ABD: soft, diffuse tenderness to palpation, nondistended, no organomegaly EXT: warm and well perfused with no edema NEURO: awake, alert, oriented, flat affect Objective Labs 07/16/22 09:46 07/16/22 09:46 Labs: Laboratory Results - last 24 hr 07/16/22 07/16/22 07/16/22 09:35 09:46 09:46 WBC 12.8 H RBC 5.50 H Hgb 11.0 L Hct 35.8 L MCV 65.0 L MCH 19.9 L MCHC 30.7 RDW 18.1 H Plt Count 608 H Neut % (Auto) 85.5 H Lymph % (Auto) 8.9 L [place] % (Auto) 4.9 Eos % (Auto) 0.1 L Baso % (Auto) 0.6 Neut # (Auto) 38878 H Lymph # (Auto) 1100 [place] # (Auto) 600 Eos # (Auto) 0 Baso # (Auto) 100 Platelet Estimate Incr RBC Morphology See Hypochromasia 2+ H Anisocytosis 2+ H Microcytosis 2+ H PT 13.1 H INR 1.1 APTT 28 Sodium Potassium Chloride Carbon Dioxide BUN Creatinine Estimated GFR BUN/Creatinine Ratio Glucose Lactate Calcium Magnesium Iron TIBC % Saturation Transferrin Total Bilirubin AST ALT Alkaline Phosphatase Total Creatine Kinase CK-MB (CK-2) CK-MB (CK-2) Rel Index Troponin I Total Protein Albumin Globulin Albumin/Globulin Ratio Lipase Procalcitonin Serum , Qual Negative Urine RBC Urine WBC Ur Squamous Epith Cells Amorphous Sediment Urine Bacteria SARS-CoV-2 (PCR) Influenza A (RT-PCR) Influenza B (RT-PCR) RSV (PCR) 07/16/22 07/16/22 07/16/22 09:46 09:46 09:46 WBC RBC Hgb Hct MCV MCH MCHC RDW Plt Count Neut % (Auto) Lymph % (Auto) [place] % (Auto) Eos % (Auto) Baso % (Auto) Neut # (Auto) Lymph # (Auto) [place] # (Auto) Eos # (Auto) Baso # (Auto) Platelet Estimate RBC Morphology Hypochromasia Anisocytosis Microcytosis PT INR APTT Sodium 140 Potassium 2.4 L* Chloride 86 L Carbon Dioxide 40 H* BUN 17 Creatinine 0.71 Estimated GFR > 60 BUN/Creatinine Ratio 23.9 H Glucose 115 H Lactate 1.8 Calcium 9.1 Magnesium 2.1 Iron TIBC % Saturation Transferrin Total Bilirubin 0.9 AST 43 H ALT 20 Alkaline Phosphatase 71 Total Creatine Kinase 30 CK-MB (CK-2) TNP CK-MB (CK-2) Rel Index TNP Troponin I < 0.012 Total Protein 8.1 Albumin 4.2 Globulin 3.9 Albumin/Globulin Ratio 1.1 Lipase 118 Procalcitonin 0.05 Serum , Qual Urine RBC Urine WBC Ur Squamous Epith Cells Amorphous Sediment Urine Bacteria SARS-CoV-2 (PCR) Influenza A (RT-PCR) Influenza B (RT-PCR) RSV (PCR) 07/16/22 07/16/22 07/16/22 09:46 10:07 13:13 WBC RBC Hgb Hct MCV MCH MCHC RDW Plt Count Neut % (Auto) Lymph % (Auto) [place] % (Auto) Eos % (Auto) Baso % (Auto) Neut # (Auto) Lymph # (Auto) [place] # (Auto) Eos # (Auto) Baso # (Auto) Platelet Estimate RBC Morphology Hypochromasia Anisocytosis Microcytosis PT INR APTT Sodium Potassium Chloride Carbon Dioxide BUN Creatinine Estimated GFR BUN/Creatinine Ratio Glucose Lactate Calcium Magnesium Iron 21 L TIBC 441 % Saturation 5 L Transferrin 334 Total Bilirubin AST ALT Alkaline Phosphatase Total Creatine Kinase CK-MB (CK-2) CK-MB (CK-2) Rel Index Troponin I Total Protein Albumin Globulin Albumin/Globulin Ratio Lipase Procalcitonin Serum , Qual Urine RBC None seen Urine WBC 0-1/hpf Ur Squamous Epith Cells 5-10 /hpf H Amorphous Sediment 1+ Urine Bacteria Few (2-10) H SARS-CoV-2 (PCR) Negative Influenza A (RT-PCR) Flu a negative Influenza B (RT-PCR) Flu b negative RSV (PCR) Negative Assessment & Plan Assessment & Plan narrative: # severe hypokalemia -K 2.4 on admission -likely due to NV -replete and monitor -tele # severe iron-deficiency anemia -MCV 65, iron 21 and ferritin 4 -feraheme IV ordered -guiaiac ordered, as patient notes some dark stools -poor appetite likely a contributing factor # intractable nausea and vomiting -unclear etiology: GERD vs PUD vs gastroparesis vs gastroenteritis from [employer] -check tox screen -has outpatient EGD scheduled ordered by PCP -[employer]iemetics PRN # 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 COVID negative. DVT prophylaxis with SCDs. Proxy is Joseph. I have reviewed home meds and used all available resources to reconcile the home meds. This patient will be admitted as inpatient and will require greater than 2 midnights of hospital time to treat nausea vomiting and hypokalemia. Time Spent With Patient Critical Care time: I spent a total of [] minutes of critical care time on this patient's care today; this time is exclusive of procedural time. Quality VTE Deep Vein Thrombosis/Pulmonary Embolism Present on Admission: No
[2022-07-16 16:06] LABS: Ferritin 4 ng/mL (6-137)
[2022-07-16] MEDS: SODIUM CHLORIDE 0.9% 1,000 ML 100 ML IV (16:29)
[2022-07-16] MEDS: PANTOPRAZOLE 40 MG VIAL IV (16:29)
[2022-07-16] MEDS: ONDANSETRON 4 MG/2 ML INJ IV ×2 (16:29→22:22)
[2022-07-16 16:34] LABS: Hemoglobin A1C% w Est Avg Glu 4.9 % (4.0-6.0)
[2022-07-16 17:02] LABS: BUN Creatinine Ratio 17.1 (6-22); Blood Urea Nitrogen 13 mg/dL (7-17); Calcium 7.9 mg/dL (8.4-10.2); Carbon Dioxide 39 mmol/L (22-32); Chloride 92 mmol/L (98-107); Estimated Glomerular Filt Rate > 60 mL/min (>60); Glucose 92 mg/dL (70-100); HEMOLYSIS < 15 (0-50); Sodium 140 mmol/L (137-145)
[2022-07-16 17:23] LABS: Potassium 2.1 mmol/L (3.4-5.1)
--- NOTE | 2022-07-16 17:49 | PC.NURSE ---
INFORMED OF NEW K DOWN TO 2.1 WITH 3 KRIDERS TO GO
[2022-07-16] MEDS: ferumoxytoL 1,020 MG in SODIUM CHLORIDE 0.9% 250 ML 568 MG IV (20:39)
[2022-07-17] MEDS: POTASSIUM CHLORIDE IN WATER 10 MEQ/100 ML PIGGYBACK 100 MEQ IV ×5 (01:25→11:00)
[2022-07-17 04:58] LABS: Add Manual Diff / Slide Review SLIDE REVIEW; Basophils Absolute Auto 0 /uL (0-100); Basophils Percent Auto 0.3 % (0-2); Eosinophils Absolute Auto 100 /uL (0-450); Eosinophils Percent Auto 0.8 % (2-4); Hematocrit 25.5 % (36-46); Lymphocytes Absolute Auto 1800 /uL (1100-4500); Lymphocytes Percent Auto 25.5 % (25-40); Mean Corpuscular HGB Conc 31.4 % (30-36); Mean Corpuscular Hemoglobin 20.5 PG (26-34); Mean Corpuscular Volume 65.4 fL (80-100); Monocytes Absolute Auto 500 /uL (0-900); Monocytes Percent Auto 7.1 % (3-14); Neutrophils Absolute Auto 4700 /uL (1500-7000); Neutrophils Percent Auto 66.3 % (50-75); Platelet Count 394 X10^3/uL (150-400); Red Cell Distribution Width 17.9 % (11.6-14.8); White Blood Cell Count 7.1 X10^3/uL (4.5-11.0)
[2022-07-17 05:00] VITALS: BP 92/59; PULSE 69; RESP 16; TEMP 36; O2SAT 99
[2022-07-17 05:15] LABS: BUN Creatinine Ratio 17.2 (6-22); Blood Urea Nitrogen 11 mg/dL (7-17); Calcium 7.5 mg/dL (8.4-10.2); Carbon Dioxide 33 mmol/L (22-32); Chloride 100 mmol/L (98-107); Estimated Glomerular Filt Rate > 60 mL/min (>60); Glucose 86 mg/dL (70-100); HEMOLYSIS < 15 (0-50); Magnesium 1.9 mg/dL (1.6-2.3); Sodium 135 mmol/L (137-145)
[2022-07-17 07:44] VITALS: BP 92/61; PULSE 90; RESP 16; TEMP 36.6; O2SAT 97
[2022-07-17 07:44] LABS: Microcytosis 2+
--- NOTE | 2022-07-17 08:12 | PM.PN.1 ---
Subjective Subjective Date Patient Seen: 07/17/22 Interval history: Patient's nausea improving. Got a dose of IV iron yesterday and she is asking if she'll get more. K 3.0 today. Exam Vital Signs (past 8 hours): - 07/17/22 05:00 Temperature 96.8 F L Pulse Rate 69 Respiratory Rate 16 Blood Pressure 92/59 L Pulse Oximetry 99 Oxygen Flow Rate 0 Oxygen Delivery Method Room Air Oxygen Flow Rate 0 Narrative Exam Narrative: GEN: no acute distress, appears much older than stated age, evidence of temporal wasting HEENT: moist mucous membranes, PERRL NECK: trachea midline, no JVD CV: regular rate and rhythm, no murmurs PULM: clear bilaterally ABD: soft, diffuse tenderness to palpation, nondistended, no organomegaly EXT: warm and well perfused with no edema NEURO: awake, alert, oriented, flat affect Objective Labs 07/17/22 04:48 07/17/22 04:48 Labs: Laboratory Results - last 24 hr 07/16/22 07/16/22 07/16/22 09:35 09:46 09:46 WBC 12.8 H RBC 5.50 H Hgb 11.0 L Hct 35.8 L MCV 65.0 L MCH 19.9 L MCHC 30.7 RDW 18.1 H Plt Count 608 H Neut % (Auto) 85.5 H Lymph % (Auto) 8.9 L [place] % (Auto) 4.9 Eos % (Auto) 0.1 L Baso % (Auto) 0.6 Neut # (Auto) 87474 H Lymph # (Auto) 1100 [place] # (Auto) 600 Eos # (Auto) 0 Baso # (Auto) 100 Platelet Estimate Incr RBC Morphology See Hypochromasia 2+ H Anisocytosis 2+ H Microcytosis 2+ H PT 13.1 H INR 1.1 APTT 28 Sodium Potassium Chloride Carbon Dioxide BUN Creatinine Estimated GFR BUN/Creatinine Ratio Glucose Hemoglobin A1c Lactate Calcium Magnesium Iron TIBC % Saturation Transferrin Ferritin Total Bilirubin AST ALT Alkaline Phosphatase Total Creatine Kinase CK-MB (CK-2) CK-MB (CK-2) Rel Index Troponin I Total Protein Albumin Globulin Albumin/Globulin Ratio Lipase Procalcitonin Serum , Qual Negative Urine RBC Urine WBC Ur Squamous Epith Cells Amorphous Sediment Urine Bacteria SARS-CoV-2 (PCR) Influenza A (RT-PCR) Influenza B (RT-PCR) RSV (PCR) 07/16/22 07/16/22 07/16/22 09:46 09:46 09:46 WBC RBC Hgb Hct MCV MCH MCHC RDW Plt Count Neut % (Auto) Lymph % (Auto) [place] % (Auto) Eos % (Auto) Baso % (Auto) Neut # (Auto) Lymph # (Auto) [place] # (Auto) Eos # (Auto) Baso # (Auto) Platelet Estimate RBC Morphology Hypochromasia Anisocytosis Microcytosis PT INR APTT Sodium 140 Potassium 2.4 L* Chloride 86 L Carbon Dioxide 40 H* BUN 17 Creatinine 0.71 Estimated GFR > 60 BUN/Creatinine Ratio 23.9 H Glucose 115 H Hemoglobin A1c Lactate 1.8 Calcium 9.1 Magnesium 2.1 Iron TIBC % Saturation Transferrin Ferritin Total Bilirubin 0.9 AST 43 H ALT 20 Alkaline Phosphatase 71 Total Creatine Kinase 30 CK-MB (CK-2) TNP CK-MB (CK-2) Rel Index TNP Troponin I < 0.012 Total Protein 8.1 Albumin 4.2 Globulin 3.9 Albumin/Globulin Ratio 1.1 Lipase 118 Procalcitonin 0.05 Serum , Qual Urine RBC Urine WBC Ur Squamous Epith Cells Amorphous Sediment Urine Bacteria SARS-CoV-2 (PCR) Influenza A (RT-PCR) Influenza B (RT-PCR) RSV (PCR) 07/16/22 07/16/22 07/16/22 09:46 09:46 10:07 WBC RBC Hgb Hct MCV MCH MCHC RDW Plt Count Neut % (Auto) Lymph % (Auto) [place] % (Auto) Eos % (Auto) Baso % (Auto) Neut # (Auto) Lymph # (Auto) [place] # (Auto) Eos # (Auto) Baso # (Auto) Platelet Estimate RBC Morphology Hypochromasia Anisocytosis Microcytosis PT INR APTT Sodium Potassium Chloride Carbon Dioxide BUN Creatinine Estimated GFR BUN/Creatinine Ratio Glucose Hemoglobin A1c Lactate Calcium Magnesium Iron 21 L TIBC 441 % Saturation 5 L Transferrin 334 Ferritin 4 L Total Bilirubin AST ALT Alkaline Phosphatase Total Creatine Kinase CK-MB (CK-2) CK-MB (CK-2) Rel Index Troponin I Total Protein Albumin Globulin Albumin/Globulin Ratio Lipase Procalcitonin Serum , Qual Urine RBC Urine WBC Ur Squamous Epith Cells Amorphous Sediment Urine Bacteria SARS-CoV-2 (PCR) Negative Influenza A (RT-PCR) Flu a negative Influenza B (RT-PCR) Flu b negative RSV (PCR) Negative 07/16/22 07/16/22 07/16/22 13:13 15:34 15:34 WBC RBC Hgb Hct MCV MCH MCHC RDW Plt Count Neut % (Auto) Lymph % (Auto) [place] % (Auto) Eos % (Auto) Baso % (Auto) Neut # (Auto) Lymph # (Auto) [place] # (Auto) Eos # (Auto) Baso # (Auto) Platelet Estimate RBC Morphology Hypochromasia Anisocytosis Microcytosis PT INR APTT Sodium 140 Potassium 2.1 L* Chloride 92 L Carbon Dioxide 39 H BUN 13 Creatinine 0.76 Estimated GFR > 60 BUN/Creatinine Ratio 17.1 Glucose 92 Hemoglobin A1c 4.9 Lactate Calcium 7.9 L Magnesium Iron TIBC % Saturation Transferrin Ferritin Total Bilirubin AST ALT Alkaline Phosphatase Total Creatine Kinase CK-MB (CK-2) CK-MB (CK-2) Rel Index Troponin I Total Protein Albumin Globulin Albumin/Globulin Ratio Lipase Procalcitonin Serum , Qual Urine RBC None seen Urine WBC 0-1/hpf Ur Squamous Epith Cells 5-10 /hpf H Amorphous Sediment 1+ Urine Bacteria Few (2-10) H SARS-CoV-2 (PCR) Influenza A (RT-PCR) Influenza B (RT-PCR) RSV (PCR) 07/17/22 07/17/22 07/17/22 04:48 04:48 04:48 WBC 7.1 RBC 3.90 L Hgb 8.0 L Hct 25.5 L MCV 65.4 L MCH 20.5 L MCHC 31.4 RDW 17.9 H Plt Count 394 Neut % (Auto) 66.3 Lymph % (Auto) 25.5 [place] % (Auto) 7.1 Eos % (Auto) 0.8 L Baso % (Auto) 0.3 Neut # (Auto) 4700 Lymph # (Auto) 1800 [place] # (Auto) 500 Eos # (Auto) 100 Baso # (Auto) 0 Platelet Estimate RBC Morphology Not Reportable Hypochromasia Anisocytosis Microcytosis 2+ H PT INR APTT Sodium 135 L Potassium 3.0 L Chloride 100 Carbon Dioxide 33 H BUN 11 Creatinine 0.64 Estimated GFR > 60 BUN/Creatinine Ratio 17.2 Glucose 86 Hemoglobin A1c Lactate Calcium 7.5 L Magnesium 1.9 Iron TIBC % Saturation Transferrin Ferritin Total Bilirubin AST ALT Alkaline Phosphatase Total Creatine Kinase CK-MB (CK-2) CK-MB (CK-2) Rel Index Troponin I Total Protein Albumin Globulin Albumin/Globulin Ratio Lipase Procalcitonin Serum , Qual Urine RBC Urine WBC Ur Squamous Epith Cells Amorphous Sediment Urine Bacteria SARS-CoV-2 (PCR) Influenza A (RT-PCR) Influenza B (RT-PCR) RSV (PCR) PFSH Medical History Hypokalemia Social History household members: spouse Smoking Status: Current some day smoker alcohol intake: current Assessment & Plan Assessment & Plan narrative: # severe hypokalemia, improving -K 2.4 on admission, now 3 -likely due to NV -replete and monitor -tele # severe iron-deficiency anemia -MCV 65, iron 21 and ferritin 4 -feraheme IV dose given on 07/17 -guiaiac ordered, as patient notes some dark stools -poor appetite likely a contributing factor # intractable nausea and vomiting, improving -unclear etiology: GERD vs PUD vs gastroparesis vs gastroenteritis from [place] food -check tox screen -has outpatient EGD scheduled ordered by PCP -antiemetics PRN # 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 COVID negative. DVT prophylaxis with SCDs. Proxy is Joseph. Dispo: Home likely on 07/18. Time Spent With Patient Critical Care time: I spent a total of [] minutes of critical care time on this patient's care today; this time is exclusive of procedural time. Quality VTE Deep Vein Thrombosis/Pulmonary Embolism Present on Admission: No
[2022-07-17] MEDS: PANTOPRAZOLE 40 MG VIAL IV (08:43)
[2022-07-17] MEDS: POTASSIUM CHLORIDE 20 MEQ TAB 40 MEQ PO ×4 (08:43→18:34)
[2022-07-17] MEDS: ONDANSETRON 4 MG/2 ML INJ IV ×2 (09:00→14:59)
--- NOTE | 2022-07-17 09:00 | CM.DANOTE ---
DCP: Case received, EMR reviewed and met with patient. Introduced self and role. Completed DCP assessment based upon information currently available. Patient is a 42 year old female who admitted yesterday afternoon to the care of the hospitalist team. PCP: Dr. Jasmin Medina. Payer: confirmed: Medicaid. Patient came to the hospital via private vehicle secondary to having intractable vomiting, weight loss, and generalized weakness. Notes indicate that patient has lost between 50-70 pounds in the past 3 months. Patient had noted a decrease in her potassium., had been seen here a couple of days ago for this. Patient is admitted for hypokalemia, iron-deficiency anemia, intractable nausea and vomiting. Met briefly with patient in her room. She was sitting up in bed, alert and oriented, had family member in the room. Confirm that she resides with spouse, Jluis, in [place]. She is independent at baseline. Confirmed that she sees Jasmin Medina as her primary care provider. P: DCP to continue to follow. Patient should be able to go home when deemed medically stable. Sunhsine Sawant RN/Construction Helper Discharge Planning/Care Management CM Discharge Assessment Start: 07/17/22 08:59 Freq: Status: Active Protocol: Document 07/17/22 08:59 (Rec: 07/17/22 09:00 [id number]) Discharge Planning Assessment Assigned Radio Announcer Sunshine Sawant RN/Construction Helper Advance Directives? No History Provided By Patient,Medical Record Prior Living Arrangements House Household Members spouse Type of transporation used prior to Drives own vehicle admit Independent with ADL's Yes Is patient alert and oriented? Yes Caregiver for Another No Barriers to Discharge No Discharge Plan Home Transportation Arrangement Spouse, or family Referrals Initiated None needed Whiteboard Updated in Patient Room with Yes name and ext. # of Radio Announcer Review Status In Process Next Review Type Continued Stay Review
[2022-07-17 15:20] VITALS: BP 93/62; PULSE 68; RESP 16; TEMP 36.7; O2SAT 99
--- NOTE | 2022-07-17 15:41 | DIET.CONS ---
Dietary Consultation Note Admission Date: 07/16/2022 14:25 Assessment: 42y F admitted for hypokalemia with chest numbness referred to nutrition for reported 70# unintentional weight loss. RD met with pt and spouse at bedside. Pt states she is feeling much better after iron and potassium infusions. Pt reports moderate decrease in appetite 6-7mo ago with severe decrease and accelerated weight loss in May 2022. Since May pt only tolerating gatorade, popsicles, watermelon and water. Pt reports significant heartburn which results in vomiting if she eats solid foods. Pt states intake of greasy foods can cause less frequent bowel movements, does not have diarrhea and usually has one BM daily. Pt endorses drinking 6 pack of [place] etoh seltzers daily up until 3w ago. Pt reports no withdrawal symptoms when stopping etoh. Pt with three ED visits in last month for vomiting and hypokalemia. Pt given antiemetics and K+ replacement. At baseline, pt eats one meal daily, usually dinner meal. Hamburger soup, steak, pork, chicken, fruits and veggies. Pt likes fried eggs and salmon. Pt enjoys refried beans and 2% milk, but has not eaten these items since May. Pt reports heavy menses lasting 3-7d on average with heaviest bleeding for 3d. Pt reports no IBS/IBD or food allergies for self or immediate family that she knows of. Endorses mother who has GERD. Pt states she is not depressed, no new life stressors, supportive family, food security, no sx disordered eating. Pt answered some questions but often looked to to speak for her, including regarding pt height, weight hx, and usual diet. NFPE shows temporal wasting, puffy cheeks, clear skin without sx loose skin, wasting of lower leg compartments. Pt's endorses she looks much thinner from the neck down than usual, states concerning. Pt appears older than stated age with dark circles around eyes. Ht: 168.91 cm Wt: 57 kg (-6.1% in 3w, severe) BMI: 20.0 UBW: 84kg (32% of UBW) Last BM: 07/16/22 (07/16/22 14:55) MNA: 5 Jesus Score: 21 Diet: 07/17/22 Breakfast Regular [General (Regular) Diet] Diet Modifications: Nutrition Percent Meal Consumed 50% 07/16/22 18:00 Labs: RBC 3.90 X10^6/uL (4.0-5.2) L 07/17/22 04:48 Hgb 8.0 g/dL (12.0-16.0) L 07/17/22 04:48 Hct 25.5 % (36-46) L 07/17/22 04:48 Creatinine 0.64 mg/dL (0.52-1.04) 07/17/22 04:48 Hemoglobin A1c 4.9 % (4.0-6.0) 07/16/22 15:34 Lactate 1.8 mmol/L (0.7-2.1) 07/16/22 09:46 Iron 21 ug/dL (37-170) L 07/16/22 09:46 % Saturation 5 % (15-50) L 07/16/22 09:46 Ferritin 4 ng/mL (6-137) L 07/16/22 09:46 Nutrition Diagnosis: Severe Acute Protein Calorie Malnutrition r/t difficulty eating aeb 6.1% unintentional weight loss in 3w (severe), pt 32% below UBW, GI sx (vomiting) >1mo, pt with altered nutrition labs (iron, K+, Hgb), pt food recall shows intake clear liquids and watermelon exclusively x2mo. -The patient is at much higher risk for medical and surgical complications because of malnutrition. This increases the difficulty and complexity of medical and surgical interventions and increases the chances of poor outcomes such as morbidity and mortality. Interventions: 1. To support nutrition status while hospitalized, sending chocolate milk or 2% milk on meal trays tid. Encouraged pt to order high protein foods including meatloaf and hamburgers. If POs <75% will add ONS to meal trays. 2. Because of pts recent cessation of etoh and hx emesis, recc thiamine supplementation. 3. To support nutrition status on d/c, educated pt and spouse on high pro/high kcal MNT. Pt will add a meal and snack each day including fried egg, 2% milk and other high pro foods of her liking. Recc pt start MVI. EER: 1,700-2,000 kcals/d (30-35kcal/kg per PCM), 75-85g PRO (1.3-1.5g/kg per PCM) Monitoring/Evaluations: POs Electronically Signed by: Katherine Altamirano 07/17/22 15:41 Clinical Dietitian [address] [address]
--- NOTE | 2022-07-17 18:35 | PC.NURSE ---
given 3 dose of 3 of patient
--- NOTE | 2022-07-17 18:35 | PC.NURSE ---
3rd dose of 3 given to patient of her potassium, she did not get 4 doses
[2022-07-17] MEDS: SODIUM CHLORIDE 0.9% FLUSH 10 ML IV (20:17)
[2022-07-17 23:29] VITALS: BP 98/61; PULSE 69; RESP 18; TEMP 36.1; O2SAT 100
[2022-07-18] MEDS: ONDANSETRON 4 MG/2 ML INJ IV (04:48)
[2022-07-18] MEDS: SODIUM CHLORIDE 0.9% FLUSH 10 ML IV ×2 (04:49→09:14)
[2022-07-18 04:51] VITALS: BP 90/61; PULSE 66; RESP 18; TEMP 36.4; O2SAT 99
[2022-07-18] MEDS: ACETAMINOPHEN 325 MG TABLET 650 MG PO (04:54)
[2022-07-18 05:07] LABS: Add Manual Diff / Slide Review NO; Basophils Absolute Auto 0 /uL (0-100); Basophils Percent Auto 0.4 % (0-2); Eosinophils Absolute Auto 100 /uL (0-450); Eosinophils Percent Auto 1.6 % (2-4); Hematocrit 26.2 % (36-46); Hemoglobin 8.1 g/dL (12.0-16.0); Lymphocytes Absolute Auto 1500 /uL (1100-4500); Lymphocytes Percent Auto 25.1 % (25-40); Mean Corpuscular HGB Conc 30.7 % (30-36); Mean Corpuscular Hemoglobin 20.3 PG (26-34); Mean Corpuscular Volume 66.1 fL (80-100); Monocytes Absolute Auto 400 /uL (0-900); Neutrophils Absolute Auto 3900 /uL (1500-7000); Neutrophils Percent Auto 65.9 % (50-75); Platelet Count 370 X10^3/uL (150-400); Red Blood Cell Count 3.97 X10^6/uL (4.0-5.2); Red Cell Distribution Width 17.6 % (11.6-14.8); White Blood Cell Count 5.9 X10^3/uL (4.5-11.0)
[2022-07-18 05:23] LABS: BUN Creatinine Ratio 13.8 (6-22); Blood Urea Nitrogen 8 mg/dL (7-17); Calcium 8.2 mg/dL (8.4-10.2); Carbon Dioxide 29 mmol/L (22-32); Chloride 100 mmol/L (98-107); Estimated Glomerular Filt Rate > 60 mL/min (>60); Glucose 86 mg/dL (70-100); HEMOLYSIS < 15 (0-50); Potassium 3.7 mmol/L (3.4-5.1); Sodium 135 mmol/L (137-145)
[2022-07-18 05:24] LABS: Magnesium 1.9 mg/dL (1.6-2.3)
[2022-07-18 05:53] LABS: Anisocytosis 2+
[2022-07-18 05:54] LABS: Microcytosis 2+
[2022-07-18] MEDS: PANTOPRAZOLE 40 MG VIAL IV (09:19)
[2022-07-18 12:00] VITALS: BP 93/63; PULSE 75; RESP 18; TEMP 36.4; O2SAT 100
--- NOTE | 2022-07-18 12:01 | P.DS_ITS ---
History of Present Illness History of Present Illness Date Patient Seen: 07/18/22 Chief complaint: Potassium/chest up is numb arms numb/V Narrative: Penelope Luu is a 42yo F without significant past medical history who presents with hypokalemia and intractable NV. Patient says she last had intractable NV in Jun 2021 due to unknown cause and has had trouble eating since then, and can on ly tolerate small portions of meals or else she will vomit it back up. She has been losing weight due to this and has lost 70lbs since May 2022. Her appetite has been lacking as well. She says she deals with GERD and her reflux has been worse lately because she can't been able to take omeprazole due to her nausea. She developed vomiting nonstop since 07/12 after eating marquez mein at a restaurant. Hasn't been able to eat due to the nausea. She also notes some dark stools. Denies CP, diarrhea, yellowing of skin, RUQ pain or dizziness. In the ED found to have potassium of 2.4, WBC 12.8, Hgb 11 with MCV 65. Lactate normal, mag normal. Discharge Providers Provider Date of admission: 07/16/22 14:25 Discharge Date: 07/18/22 Primary care physician: Danuta Tinoco MD Consults: 07/16/22 16:44 Consult to Dietitian, Adult Routine Comment: Reason For Exam: screen for malnutrition, 70lb weight loss Discharge provider: Bruce Bray DO Summary Hospital Course Discharge Diagnosis: # severe hypokalemia, resolved -K 2.4 on admission, now 3.7 -likely due to NV -replete and monitor -tele -discharge on daily 20mEq potassium supplement # severe iron-deficiency anemia -MCV 65, iron 21 and ferritin 4 -feraheme IV dose given on 07/17 -poor appetite likely a contributing factor # intractable nausea and vomiting, improving -unclear etiology: GERD vs PUD vs gastroparesis vs gastroenteritis from [place] food -has outpatient EGD scheduled ordered by PCP -antiemetics PRN -pt will need outpatient workup to determine etiology -discharged on daily protonix, and antiemetics # 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 -CT abd pelvis notes large 9.1 x 5.7 cm mass consistent with teratoma -pelvic US confirms mature teratoma -may need outpatient obstetrics and gynecology professor-onc f/u # GERD -start protonix 40 IV daily # significant weight loss and likely malnutrition -patient notes she has lost 70 lb since May 2022 -dietitian consult # Severe Acute Protein Calorie Malnutrition r/t difficulty eating aeb 6.1% unint entional weight loss in 3w (severe), pt 32% below UBW, GI sx (vomiting) >1mo, pt with altered nutrition labs (iron, K+, Hgb), pt food recall shows intake clear liquids and watermelon exclusively x2mo. -The patient is at much higher risk for medical and surgical complications because of malnutrition.? This increases the difficulty and complexity of medical and surgical interventions and increases the chances of poor outcomes such as morbidity and mortality. Hospital Course: See above problem list. Time Spent with Patient Time spent: Greater than 30 minutes Exam Vital Signs (past 8 hours): - 07/18/22 04:51 Temperature 97.6 F Pulse Rate 66 Respiratory Rate 18 Blood Pressure 90/61 Pulse Oximetry 99 Oxygen Delivery Method Room Air Oxygen Flow Rate 0 Narrative Exam Narrative: GEN: no acute distress, appears much older than stated age, evidence of temporal wasting HEENT: moist mucous membranes, PERRL NECK: trachea midline, no JVD CV: regular rate and rhythm, no murmurs PULM: clear bilaterally ABD: soft, diffuse tenderness to palpation, nondistended, no organomegaly EXT: warm and well perfused with no edema NEURO: awake, alert, oriented, flat affect Objective Labs 07/18/22 04:36 07/18/22 04:36 Labs: Laboratory Results - last 24 hr 07/18/22 07/18/22 07/18/22 04:36 04:36 04:36 WBC 5.9 RBC 3.97 L Hgb 8.1 L Hct 26.2 L MCV 66.1 L MCH 20.3 L MCHC 30.7 RDW 17.6 H Plt Count 370 Neut % (Auto) 65.9 Lymph % (Auto) 25.1 [place] % (Auto) 7.0 Eos % (Auto) 1.6 L Baso % (Auto) 0.4 Neut # (Auto) 3900 Lymph # (Auto) 1500 [place] # (Auto) 400 Eos # (Auto) 100 Baso # (Auto) 0 RBC Morphology See below Anisocytosis 2+ H Microcytosis 2+ H Sodium 135 L Potassium 3.7 Chloride 100 Carbon Dioxide 29 BUN 8 Creatinine 0.58 Estimated GFR > 60 BUN/Creatinine Ratio 13.8 Glucose 86 Calcium 8.2 L Magnesium 1.9 PFSH Medical History Hypokalemia Social History household members: spouse Smoking Status: Current some day smoker alcohol intake: current Discharge Plan Discharge Plan Patient Disposition: Home Discharge orders & Medications Prescriptions: New pantoprazole [Protonix] 40 mg tablet,delayed release (DR/EC) 40 mg PO DAILY Qty: 30 0RF potassium chloride 20 mEq tablet extended release 20 meq PO DAILY Qty: 30 0RF Continued furosemide [Lasix] 40 mg tablet 40 mg PO DAILY Qty: 5 0RF ondansetron 4 mg tablet,disintegrating 4 mg PO Q6H PRN (Reason: nausea and vomiting) Qty: 30 0RF Changed metoclopramide HCl 10 mg tablet 10 mg PO Q6H PRN (Reason: Nausea) Qty: 30 0RF Discontinued potassium chloride 10 mEq tablet extended release 10 meq PO DAILY 5 Days Qty: 5 0RF Follow up/Referrals: Danuta Tinoco MD [Primary Care Provider] - 2 Weeks Visit Report/Discharge Packet Stand Alone Forms: Patient Portal/API, Stroke Signs & Symptoms Discharge Data Primary Care Provider: Danuta Tinoco Quality VTE Deep Vein Thrombosis/Pulmonary Embolism Present on Admission: No
== END 2022-07-18 13:10 | disposition home or self-care (01) | DRG 640 ==
LOC: ED 14:24 → AC 15:58
PROVIDERS: Admitting Provider Student in an Organized Health Care Education/Training Program; Emergency Provider Emergency Medicine; Family Provider Specialist; PCP Specialist; Referring Provider Emergency Medicine; Visit Provider Student in an Organized Health Care Education/Training Program
DX: E87.6 Hypokalemia (principal); E43 Unspecified severe protein-calorie malnutrition; D50.9 Iron deficiency anemia, unspecified; D39.8 Neoplasm of uncertain behavior of other specified female genital organs; K21.9 Gastro-esophageal reflux disease without esophagitis; K27.9 Peptic ulcer, site unspecified, unspecified as acute or chronic, without hemorrhage or perforation; K31.84 Gastroparesis; K52.9 Noninfective gastroenteritis and colitis, unspecified; F17.210 Nicotine dependence, cigarettes, uncomplicated; Z68.20 Body mass index [BMI] 20.0-20.9, adult; Z20.822 Contact with and (suspected) exposure to COVID-19
CPT/HCPCS: 0241U; 36415; 71260; 74177; 76705; 76830; 76856; 80048; 80053; 81003; 81015; 82550; 82728; 83036; 83540; 83550; 83605; 83690; 83735; 84145; 84484; 84703; 85025; 85610; 85730; 87040; 87086; 93005; 93010; 93976; 99284; C9113; J2270; J2405; J2765; Q0138; Q9967

== ENCOUNTER → 2022-08-14 14:30 | Outpatient (CLI) | payer MEDICAID, SELFPAY ==
[2022-08-14 16:24] LABS: Lactate Dehydrogenase 148 U/L (120-246)
[2022-08-14 16:54] LABS: Cancer Antigen 125 29.8 U/mL (0-35); Carcinoembryonic Antigen 2.5 ng/mL (0.1-3.0)
[2022-08-15 08:36] LABS: Alpha Fetoprotein 2.3 ng/mL (0.0-6.4)
[2022-08-17 11:27] LABS: Human Epididymis Prot 4 70.8 pmol/L (0.0-63.6)
[2022-08-18 12:37] LABS: Inhibin B 25.6 pg/mL (.)
== END ==
PROVIDERS: Family Provider Specialist; PCP Physician Assistant; Referring Provider Specialist; Visit Provider Specialist
DX: N83.8 Other noninflammatory disorders of ovary, fallopian tube and broad ligament (principal)
CPT/HCPCS: 36415; 82105; 82378; 83520; 83615; 86304; 86305

== ENCOUNTER 2023-01-12 09:09 | Day surgery (SDC) | payer MEDICAID, SELFPAY ==
[2022-12-05 14:59] VITALS: BMI 21.6
[2023-01-05 11:50] VITALS: BMI 21.6
[2023-01-12] VITALS (13 sets, daily range): BP systolic 90–115; BP diastolic 52–67; PULSE 60–91; RESP 10–100; TEMP 35.9–36.6; O2SAT 99–100; BMI 21.6
--- NOTE | 2023-01-12 | PATH_ITS ---
[facility] Accession Number: [id number] No. of containers..02 Tissue . 01 Material submitted: . PART A: ovary - DERMOID, LEFT OVARY AND LEFT FALLOPIAN TUBE PART B: uterus - UTERUS AND RIGHT FALLOPIAN TUBE . 01 Diagnosis: A. Left Ovary and Fallopian Tube, Salpingo-oophorectomy: Mature cystic teratoma of ovary. - Negative for immature elements and malignancy. Fallopian tube without significant pathologic abnormality. . B. Uterus, Cervix, and Right Fallopian Tube, Hysterectomy and Salpingectomy: Cervix: Nabothian cysts. Endometrium: Secretory phase. Myometrium: Adenomyosis and leiomyoma without significant atypia. Serosa: Fibrovascular adhesions. Fallopian tube: No significant pathologic abnormality. [facility] 01/23/2023 1716 Local . 01 Electronically signed: . Alannah Pablo MD, Pathologist NPI- [id number] . 01 Gross description: . A. Received in formalin labeled with the patient's name, and dermoid, L fallopian tube and L ovary consists of an ovary with attached tube, all weighing 206 grams. The attached fimbriated fallopian tube measures 7.9 cm in length by 0.8 cm in diameter with brush, smooth serosa, and no peritubal cysts grossly identified. The attached ovary is large and irregular with multiple cystic structures grossly visible in the external surface. The ovary measures 9.5 x 6.6 x 5.7 cm, and the external surface is inked blue. Sectioning reveals a multilocular cystic structure with contents ranging from brush and solid to grumous with hair to brush and viscous. A small amount of possible normal ovarian parenchyma is identified greatly distorted by the cystic structure. No excrescences are identified, and the escalera average 0.2 cm thick. [place] [employer] sections are submitted as follows: A1: Fallopian tube to include one-half of bisected fimbriae and cross sections. A2-A7: [place] [employer] cystic structures to include solid areas, presumed normal parenchyma (A5), and sales representative raw fibers cyst wall. B. Received in formalin labeled with the patient's name, and uterus, R fallopian tube consists of an intact uterus (130 grams, 9.4 cm superior to inferior, 6.4 cm medial to lateral, and 4.5 cm anterior to posterior) with attached cervix (3.5 x 3.1 cm), detached presumed right fallopian tube (4.5 x 0.7 cm), and no additional adnexa. The ectocervix is pink-brush and smooth with a slit-like os measuring 1.3 cm in diameter. The serosa is brush and diffusely roughened on the anterior surface, and no areas of hemorrhage grossly identified. The anterior paracervical margin is inked blue while the posterior paracervical margin is inked black. The endocervical canal has brush herringbone mucosa and measures 2.4 cm in length. The endometrial cavity measures 2.9 cm from cornu to cornu, and 5.0 cm in length with red, velvety endometrium that averages less than 0.1 cm thick, and no lesions identified. The endometrium is pink-brush and trabecular measuring up to 2.4 cm in maximum thickness with a single, well-circumscribed, white, whorled nodule identified measuring 0.4 cm in greatest dimension, and no additional lesions identified. . The fallopian tube has violaceous, smooth serosa with multiple small cystic structures measuring up to 0.2 cm in greatest dimension filled with cloudy serous fluid. Sectioning reveals an unremarkable stellate lumen. . [place] [employer] sections are submitted as follows: B1: Anterior cervix. B2: Posterior cervix. B3: Anterior full thickness section. B4: Posterior full thickness section. B5: Roughened area of serosa and well-circumscribed nodule. B6: Fallopian tube to include one-half of bisected fimbriae and cross sections. ([id number]) /MRV 01/13/2023 1612 Local . 01 Pathologist provided ICD-10: D27.9 . 01 CPT . 417140, [id number] Specimen Comment: A courtesy copy of this report has been sent to [phone] Performed at: 01 [facility] [address], [place], [place] [id number] MD Silvano Benavidez MD Phone: [phone]
[2023-01-12] MEDS: LACTATED RINGERS 1,000 ML 125 ML IV ×2 (09:43→12:02)
[2023-01-12] MEDS: SCOPOLAMINE 1 PATCH TOP (09:44)
--- NOTE | 2023-01-12 09:49 | P.HPOB_ITS ---
History of Present Illness History of Present Illness Reason for admission: vaginal bleeding and other (Left ovarian dermoid) Narrative: Penelope is a 42-year-old whose last menstrual period was about 2 months ago who returns today after seeing Dr. Danuta Tinoco who re commends hysterectomy and left salpingo oophorectomy for a 9 cm left-sided ovarian dermoid and intermittent, sporadic heavy vaginal bleeding which has in the past resulted in anemia.? She underwent evaluation for possible sepsis in mid June [address] of the chest/abdomen/pelvis showed: ROCEDURE:? CT CHEST ABD PEL W CON ? INDICATIONS:? sepsis ? TECHNIQUE:? After the administration of intravenous contrast, 5 mm thick sections acquired from the lung apices to the symphysis.? 5 mm coronal and sagittal reformats were performed, with additional 7 mm MIP reformats through the lungs.? For radiation dose reduction, the following was used:? automated exposure control, adjustment of mA and/or kV according to patient size.? ? COMPARISON:? None. ? FINDINGS:? Image quality:? Excellent.? ? CHEST:? Lungs and pleura:? 3-4 mm solid nodule in the left lung apex (). No acute airspace opacities.? No pleural effusions or pneumothorax.? Central and peripheral airways appear patent and normal in caliber.? ? Mediastinum:? Heart size is normal.? No pericardial effusion.? No mediastinal or hilar adenopathy by size criteria.? Thoracic aorta and central pulmonary arteries are normal in size.? Esophagus is normal in caliber.? No hiatal hernia.? ? Chest wall:? No axillary or supraclavicular adenopathy by size criteria.? Thyroid gland is unremarkable. ? ? ABDOMEN:? Solid organs:? Liver is normal in size and enhancement.? Gallbladder is distended with stones; no pericholecystic edema or wall thickening.? Biliary system is non dilated.? Pancreas enhances normally.? Spleen is normal in size and enhancement.? No adrenal nodules.? Kidneys demonstrate normal size and enhancement, without hydronephrosis.? ? Peritoneum and bowel:? Bowel loops demonstrate normal wall thickness and caliber.? No free fluid or air.? ? Nodes and vessels:? No retroperitoneal or mesenteric adenopathy by size criteria.? Aorta and inferior vena cava are normal in size.? ? Miscellaneous:? No ventral hernias.?? ? PELVIS:? Genitourinary:? Bladder wall thickness is normal.? Left adnexal mass containing macroscopic fat and soft tissue attenuation measuring 9.1 x 5.7 cm.? There is asymmetric positioning of the uterus to the left.? ? Miscellaneous:? No inguinal hernias or adenopathy.? ? Bones:? No suspicious bony lesions.? No vertebral body compression fractures.? ? IMPRESSION:? 1. Cholelithiasis with mildly distended gallbladder.? Findings may indicate early acute cholecystitis in the appropriate clinical setting.? No secondary indicators of acute cholecystitis at this time. 2. Left adnexal mass containing macroscopic fat and soft tissue attenuation measuring 9.1 x 5.7 cm.? There is asymmetric positioning of the uterus to the left.? 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 The asymmetric positioning of the uterus may indicate torsion.? Correlate with left lower quadrant pain and consider pelvic ultrasound if positive or a high clinical concern for torsion. 3. Sub 4-mm solid nodule in the left lung apex.? Consider 12 month follow-up if this patient is at high risk for developing lung cancer, per [employer] guidelines. A pelvic ultrasound performed the same day showed: PROCEDURE:? US PELVIC COMPLETE ? INDICATIONS:? LEFT ADNEXAL MASS ON CT; PAIN ? TECHNIQUE:? Real-time scanning was performed of the pelvic organs, with image documentatio n.? Additional endovaginal scanning was necessary due to incomplete visualization of the adnexal and endometrial structures by transabdominal scanning.? ? COMPARISON:? None. ? FINDINGS:? ?? Uterus:? Not visualized. ? Ovaries:? 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 Peripheral blood flow present.? Right ovary not visualized. ? Other:? No pathologic free abdominal or pelvic fluid.? ? IMPRESSION:? 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 Peripheral blood flow present. Pap smear and endometrial sampling performed on 10/31/2022 are both negative for significant abnormalities. [facility] Medical History GERD (gastroesophageal reflux disease) Hypokalemia Iron deficiency anemia Social History household members: spouse Smoking Status: Current some day smoker alcohol intake: current Meds Home Medications and Allergies Home Medications Medication Instructions Recorded Confirmed Type No Known Home Medications 10/15/22 01/12/23 History Allergies Allergy/AdvReac Type Severity Reaction Status Date / Time No Known Drug Allergies Allergy Unknown Verified 12/04/22 08:30 [NO KNOWN DRUG ALLERGIES] Review of Systems Review of Systems Narrative: Problem-specific ROS positives included in HPI Exam Vital Signs (past 8 hours): - 01/12/23 09:22 Temperature 97.3 F L Pulse Rate 60 Respiratory Rate 17 Blood Pressure 98/66 Pulse Oximetry 100 Oxygen Delivery Method Room Air Oxygen Delivery Method Room Air Const General: cooperative Nutritional Appearance: overweight Orientation: alert HENMT Head: normal to inspection, normocephalic and atraumatic Eyes General: appearance normal, both eyes and all related structures Resp Effort & Inspection: normal respiratory effort and able to speak in complete sentences Auscultation: clear to auscultation bilaterally Cardio Rate: regular rate Rhythm: regular rhythm Heart Sounds: S1 normal, S2 normal and no murmurs GI Inspection: normal to inspection Palpation: soft and no hepatosplenomegaly General: other (See below) Other: External Female Exam: normal external appearance, normal appearance of the urethra and lesion (Numerous old healed superficial abscesses, ? folliculitis) Urethra: normal appearance of the urethra Speculum Exam - Vagina: normal appearance of the vagina and normal vaginal discharge Speculum Exam - Cervix: normal appearance of the cervix, cervical os open and other (Cervix is firm, no gross lesions appreciated) Bimanual Exam- Vagina & Uterus: uterine size normal (Sounds to 7 cm) and other (Uterus difficult to separate from left adnexal mass) Bimanual Exam- Adnexa, other: mass (9 cm, left-sided, firm, mildly tender) OB/External & Speculum: cervical os open Speculum Exam: cervical os open Extrem Right lower extremity: normal to inspection Assessment & Plan Assessment and plan (1) Cystic teratoma of left ovary: Status: Acute (2) Menorrhagia with irregular cycle: Status: Acute (3) Chronic blood loss anemia: Status: Acute Plan Patient counseled regarding alternatives, risks, benefits, and potential complications associated with total laparoscopic hysterectomy with left salpingo oophorectomy and right salpingectomy. With full understanding of the above, a written consent was executed, signed, and witnessed this date.
--- NOTE | 2023-01-12 09:57 | PM.PREOP ---
Pre-operative Note COVID-19 COVID-19 status: Not tested Criteria for continued procedure: Non-surgical alternatives not available or appropriate per current SOC Interval Note History & Physical reviewed/Exam performed by Physician: Yes Changes to H&P: No
[2023-01-12] MEDS: CEFAZOLIN 2 GM/100 ML PREMIX 100 ML IV (11:20)
--- NOTE | 2023-01-12 11:49 | SUR.OPER ---
Lithotomy on padded OR bed. [employer] Pad Positioner under torso. Head on pillow, arms padded and tucked at sides. Legs secured in padded yellow fins stirrups.
[2023-01-12] MEDS: ROPIVACAINE 0.2% PF 2 MG/ML 20ML AMP 20 ML INJ (11:55)
[2023-01-12] MEDS: BUPIVACAINE 0.5% W/ EPI (PF) 30 ML VIAL INJ (11:58)
[2023-01-12] MEDS: ACETAMINOPHEN IV 1,000 MG/100 ML VIAL 400 MG IV (11:58)
--- NOTE | 2023-01-12 13:44 | PM.GYNOP.1 ---
Operative Date/Time/Diagnoses Date of procedure: 01/12/23 Time of procedure: 11:20 Pre-op diagnosis: Intractable menorrhagia Chronic anemia due to blood loss Left ovarian mature cystic teratoma Post-op diagnosis: same Procedure & Clinicians Procedure: Procedures Operation Date: 01/12/23 11:00 Actual Procedure Side Surgeon p Laparoscopic Total Hysterectomy, left salpingo-oophorectomy & Right salpingectomy Segundo Cesar MD Indications: Penelope is a 42-year-old whose last menstrual period is ongoing who returned after seeing Dr. Danuta Tinoco who recommends hysterectomy and left salpingo oophorectomy for a 9 cm left-sided ovarian dermoid and intermittent, sporadic heavy vaginal bleeding which has in the past resulted in anemia.? She underwent evaluation for possible sepsis in mid June 2022 at which time a CT of the chest/abdomen/pelvis showed: ROCEDURE:? CT CHEST ABD PEL W CON ? INDICATIONS:? sepsis ? TECHNIQUE:? After the administration of intravenous contrast, 5 mm thick sections acquired from the lung apices to the symphysis.? 5 mm coronal and sagittal reformats were performed, with additional 7 mm MIP reformats through the lungs.? For radiation dose reduction, the following was used:? automated exposure control, adjustment of mA and/or kV according to patient size.? ? COMPARISON:? None. ? FINDINGS:? Image quality:? Excellent.? ? CHEST:? Lungs and pleura:? 3-4 mm solid nodule in the left lung apex (). No acute airspace opacities.? No pleural effusions or pneumothorax.? Central and peripheral airways appear patent and normal in caliber.? ? Mediastinum:? Heart size is normal.? No pericardial effusion.? No mediastinal or hilar adenopathy by size criteria.? Thoracic aorta and central pulmonary arteries are normal in size.? Esophagus is normal in caliber.? No hiatal hernia.? ? Chest wall:? No axillary or supraclavicular adenopathy by size criteria.? Thyroid gland is unremarkable. ? ? ABDOMEN:? Solid organs:? Liver is normal in size and enhancement.? Gallbladder is distended with stones; no pericholecystic edema or wall thickening.? Biliary system is non dilated.? Pancreas enhances normally.? Spleen is normal in size and enhancement.? No adrenal nodules.? Kidneys demonstrate normal size and enhancement, without hydronephrosis.? ? Peritoneum and bowel:? Bowel loops demonstrate normal wall thickness and caliber.? No free fluid or air.? ? Nodes and vessels:? No retroperitoneal or mesenteric adenopathy by size criteria.? Aorta and inferior vena cava are normal in size.? ? Miscellaneous:? No ventral hernias.?? ? PELVIS:? Genitourinary:? Bladder wall thickness is normal.? Left adnexal mass containing macroscopic fat and soft tissue attenuation measuring 9.1 x 5.7 cm.? There is asymmetric positioning of the uterus to the left.? ? Miscellaneous:? No inguinal hernias or adenopathy.? ? Bones:? No suspicious bony lesions.? No vertebral body compression fractures.? ? IMPRESSION:? 1. Cholelithiasis with mildly distended gallbladder.? Findings may indicate early acute cholecystitis in the appropriate clinical setting.? No secondary indicators of acute cholecystitis at this time. 2. Left adnexal mass containing macroscopic fat and soft tissue attenuation measuring 9.1 x 5.7 cm.? There is asymmetric positioning of the uterus to the left.? 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 The asymmetric positioning of the uterus may indicate torsion.? Correlate with left lower quadrant pain and consider pelvic ultrasound if positive or a high clinical concern for torsion. 3. Sub 4-mm solid nodule in the left lung apex.? Consider 12 month follow-up if this patient is at high risk for developing lung cancer, per [employer] guidelines. A pelvic ultrasound performed the same day showed: PROCEDURE:? US PELVIC COMPLETE ? INDICATIONS:? LEFT ADNEXAL MASS ON CT; PAIN ? TECHNIQUE:? Real-time scanning was performed of the pelvic organs, with image documentation.? Additional endovaginal scanning was necessary due to incomplete visualization of the adnexal and endometrial structures by transabdominal scanning.? ? COMPARISON:? None. ? FINDINGS:? ?? Uterus:? Not visualized. ? Ovaries:? 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 Peripheral blood flow present.? Right ovary not visualized. ? Other:? No pathologic free abdominal or pelvic fluid.? ? IMPRESSION:? 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 Peripheral blood flow present. Pap smear and endometrial sampling performed on 10/31/2022 are both negative for significant abnormalities. Surgeon: Segundo Cesar [employer]cre[employer]/Aerial Observer/Gunner: Danuta Tinoco Anesthesia Type: General Operative Notes Findings: The uterus is normal in size and shape but on the surface there clear blebs highly suggestive of adenomyosis. Both fallopian tubes appeared to be normal. The right ovary is also normal in size and appearance. The left ovary however is enlarged and multilobular consistent with the preop diagnosis of mature cystic teratoma. The teratoma is unruptured and shows no signs of previous leakage. The anterior and posterior cul-de-sac are unremarkable. The remainder of the abdomen and pelvis are normal to laparoscopic visualization. Closure Type: primary Specimen(s): right tube, left tube & ovary and uterus Applied: catheter Estimated blood loss (mL): 150 Blood products transfused: none Procedure in detail: With the patient in modified dorsal lithotomy position preparations were made by prepping and draping the patient in usual manner for vaginal surgery and insertion of Mccullough catheter. A pre-surgical time-out was then taken in accordance with [facility] policy. A bivalve speculum was then placed in the vagina and the cervix visualized. The anterior lip of the cervix was then grasped with a single-tooth tenaculum. A 1. PDS suture was placed through the body of the cervix for uterine retrieval. The uterus was sounded to 8 cm, the endocervical canal dilated slightly, and a VCare uterine manipulator with a large colpotomy cup was placed. The umbilicus was then infiltrated with 0.5% Marcaine with epinephrine. A 1 cm umbilical incision was made transversely and a Veress needle was used to insufflate the abdominal cavity with carbon dioxide. Once the abdomen was appropriately insufflated, a 5 mm trocar and sleeve were then placed through the umbilical incision. The scope was placed through the trocar and the initial assessment of the intra-abdominal contents carried out. A 2nd and 3rd 5 mm port was then placed 1st in the right mid quadrant from then the left mid quadrant by infiltration of the skin and subcutaneous tissues, a 1 cm transverse incision and insertion of the 5 mm bladeless port. Using a 3 puncture technique, the abdomen and pelvis were inspected laparoscopy and photographically documented. Uterus is mobilized with the VCare manipulator and attention turned to the left adnexa. The distal tube was then grasped and the infundibulopelvic ligament was coagulated and divided with the PowerSeal device. The dissection was then carried out toward the cornua and both the fallopian tube as well as the utero-ovarian ligament were coagulated and divided. The tube and ovary were placed aside for subsequent retrieval. Dissection was then carried down using the PowerSeal device so as to divide the round ligament with blunt and sharp dissection of the broad down to the level of the uterine artery. The uterine artery was then skeletonized after development of a bladder flap, coagulated, and divided. Once hemostasis was assured on the left side attention was turned to the right and the tube, utero-ovarian ligament, round ligament, and broad ligament were dissected in a fashion exactly the same as it had been on the left. The right uterine artery was then visualized after skeletonization and coagulated and divided. The uterus was seen to lynsey after coagulation of both your arteries and the cup was identified through the vaginal muscularis at its insertion with the body of the cervix. Circumferential excision of the vaginal cup was accomplished without difficulty using monopolar current and the uterus mobilized. The uterus was then removed through the vagina and a large Андрей retrieval bag was introduced through the vagina into the abdominal cavity. The ovary was captured by the retrieval bag and easily delivered through the vaginal canal after deflation of the ovarian cyst with a very as needed. The vaginal cuff closed [id number] with a series of 0 Vicryl [id number] stitches. Hemostasis was excellent, the abdomen was re-insufflated, and the pelvis inspected laparoscopically. The pelvis was inspected for any abnormality or bleeding, and the ureters were each seen to be peristalsing freely. 20 cc of ropivacaine were instilled in the posterior cul-de-sac. With complete hemostasis assured, the pneumoperitoneum was vented and the ports removed. All of the 5 mm ports were then closed with 4-0 Monocryl on the skin using inverted interrupted sutures. Skin glue was placed and after the glue was dried, an appropriate dressing was applied. The case was then terminated, the patient awakened, and then transferred to PACU after having tolerated the procedure well. Complications: none Post-operative Condition: stable Disposition: PACU Plan for aftercare: Recovery in ambulatory surgery in discharge home later today if pain is under control and she is tolerating oral intake well.
[2023-01-12] MEDS: ONDANSETRON 4 MG/2 ML INJ IV (13:46)
[2023-01-12] MEDS: ACETAMINOPHEN 325 MG TABLET 650 MG PO ×2 (13:46→18:04)
[2023-01-12] MEDS: OXYCODONE IR 5 MG TABLET PO (13:46)
[2023-01-12] MEDS: KETOROLAC 30 MG/ML VIAL IV ×2 (14:44→20:14)
[2023-01-12] MEDS: LACTATED RINGERS 1,000 ML 100 ML IV (14:44)
--- NOTE | 2023-01-12 15:48 | PC.NURSE ---
low BP, provider aware. please call if need tonight.
[2023-01-12] MEDS: DOCUSATE 100 MG CAPSULE 200 MG PO (20:14)
[2023-01-13] MEDS: OXYCODONE IR 5 MG TABLET PO (00:12)
[2023-01-13] MEDS: ACETAMINOPHEN 325 MG TABLET 650 MG PO ×2 (00:13→06:02)
[2023-01-13] MEDS: LACTATED RINGERS 1,000 ML 100 ML IV (00:15)
[2023-01-13 00:27] VITALS: BP 84/52; PULSE 73; RESP 16; TEMP 36.6; O2SAT 100
[2023-01-13] MEDS: KETOROLAC 30 MG/ML VIAL IV ×2 (02:52→08:35)
[2023-01-13 05:52] VITALS: BP 100/62; PULSE 67; RESP 16; TEMP 36.8; O2SAT 100
[2023-01-13 06:29] LABS: Add Manual Diff / Slide Review NO; Basophils Absolute Auto 0 /uL (0-100); Basophils Percent Auto 0.2 % (0-2); Eosinophils Absolute Auto 0 /uL (0-450); Eosinophils Percent Auto 0.1 % (2-4); Hematocrit 22.7 % (36-46); Hemoglobin 7.5 g/dL (12.0-16.0); Lymphocytes Absolute Auto 1200 /uL (1100-4500); Mean Corpuscular HGB Conc 32.9 % (30-36); Mean Corpuscular Hemoglobin 23.9 PG (26-34); Mean Corpuscular Volume 72.7 fL (80-100); Monocytes Absolute Auto 400 /uL (0-900); Monocytes Percent Auto 6.3 % (3-14); Neutrophils Absolute Auto 5400 /uL (1500-7000); Neutrophils Percent Auto 76.4 % (50-75); Platelet Count 316 X10^3/uL (150-400); Red Blood Cell Count 3.13 X10^6/uL (4.0-5.2); Red Cell Distribution Width 15.3 % (11.6-14.8); White Blood Cell Count 7.1 X10^3/uL (4.5-11.0)
[2023-01-13] MEDS: DOCUSATE 100 MG CAPSULE 200 MG PO (08:40)
[2023-01-13 09:00] VITALS: BP 104/59; PULSE 55; RESP 15; TEMP 36; O2SAT 100
[2023-01-13] MEDS: IRON SUCROSE 300 MG in SODIUM CHLORIDE 0.9% 250 ML 176.667 MG IV (10:17)
--- NOTE | 2023-01-13 10:37 | PM.DS.1 ---
History of Present Illness History of Present Illness Date Patient Seen: 01/13/23 Time Patient Seen: 09:37 Chief complaint: Intractable Menorrhagia, left ovarian dermoid Narrative: Penelope is a 42-year-old whose last menstrual period is ongoing who returned after seeing Dr. Danuta Tinoco who recommends hysterectomy and left salpingo oophorectomy for a 9 cm left-sided ovarian dermoid and intermittent, sporadic heavy vaginal bleeding which has in the past resulted in anemia.? She underwent evaluation for possible sepsis in mid June 20[address] at [address] of the chest/abdomen/pelvis showed: ROCEDURE:? CT CHEST ABD PEL W CON ? INDICATIONS:? sepsis ? TECHNIQUE:? After the administration of intravenous contrast, 5 mm thick sections acquired from the lung apices to the symphysis.? 5 mm coronal and sagittal reformats were performed, with additional 7 mm MIP reformats through the lungs.? For radiation dose reduction, the following was used:? automated exposure control, adjustment of mA and/or kV according to patient size.? ? COMPARISON:? None. ? FINDINGS:? Image quality:? Excellent.? ? CHEST:? Lungs and pleura:? 3-4 mm solid nodule in the left lung apex (). No acute airspace opacities.? No pleural effusions or pneumothorax.? Central and peripheral airways appear patent and normal in caliber.? ? Mediastinum:? Heart size is normal.? No pericardial effusion.? No mediastinal or hilar adenopathy by size criteria.? Thoracic aorta and central pulmonary arteries are normal in size.? Esophagus is normal in caliber.? No hiatal hernia.? ? Chest wall:? No axillary or supraclavicular adenopathy by size criteria.? Thyroid gland is unremarkable. ? ? ABDOMEN:? Solid organs:? Liver is normal in size and enhancement.? Gallbladder is distended with stones; no pericholecystic edema or wall thickening.? Biliary system is non dilated.? Pancreas enhances normally.? Spleen is normal in size and enhancement.? No adrenal nodules.? Kidneys demonstrate normal size and enhancement, without hydronephrosis.? ? Peritoneum and bowel:? Bowel loops demonstrate normal wall thickness and caliber.? No free fluid or air.? ? Nodes and vessels:? No retroperitoneal or mesenteric adenopathy by size criteria.? Aorta and inferior vena cava are normal in size.? ? Miscellaneous:? No ventral hernias.?? ? PELVIS:? Genitourinary:? Bladder wall thickness is normal.? Left adnexal mass containing macroscopic fat and soft tissue attenuation measuring 9.1 x 5.7 cm.? There is asymmetric positioning of the uterus to the left.? ? Miscellaneous:? No inguinal hernias or adenopathy.? ? Bones:? No suspicious bony lesions.? No vertebral body compression fractures.? ? IMPRESSION:? 1. Cholelithiasis with mildly distended gallbladder.? Findings may indicate early acute cholecystitis in the appropriate clinical setting.? No secondary indicators of acute cholecystitis at this time. 2. Left adnexal mass containing macroscopic fat and soft tissue attenuation measuring 9.1 x 5.7 cm.? There is asymmetric positioning of the uterus to the left.? 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 The asymmetric positioning of the uterus may indicate torsion.? Correlate with left lower quadrant pain and consider pelvic ultrasound if positive or a high clinical concern for torsion. 3. Sub 4-mm solid nodule in the left lung apex.? Consider 12 month follow-up if this patient is at high risk for developing lung cancer, per [employer] guidelines. A pelvic ultrasound performed the same day showed: PROCEDURE:? US PELVIC COMPLETE ? INDICATIONS:? LEFT ADNEXAL MASS ON CT; PAIN ? TECHNIQUE:? Real-time scanning was performed of the pelvic organs, with image documentation.? Additional endovaginal scanning was necessary due to incomplete visualization of the adnexal and endometrial structures by transabdominal scanning.? ? COMPARISON:? None. ? FINDINGS:? ?? Uterus:? Not visualized. ? Ovaries:? 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 Peripheral blood flow present.? Right ovary not visualized. ? Other:? No pathologic free abdominal or pelvic fluid.? ? IMPRESSION:? 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 Peripheral blood flow present. Pap smear and endometrial sampling performed on 10/31/2022 are both negative for significant abnormalities. Discharge Providers Provider Date of admission: 01/12/2023 Discharge Date: 01/13/23 Primary care physician: Jasmin Medina PA-C Discharge provider: Segundo Cesar MD Summary Hospital Course Discharge Diagnosis: Intractable menorrhagia Left ovarian dermoid Chronic anemia due to menstrual blood losses Hospital Course: Penelope was admitted on the morning of 01/12/2023 and underwent an uneventful total laparoscopic hysterectomy with left salpingo-oophorectomy and right salpingectomy. Details of the procedure well summarized on my operative note of that date. Following surgery the patient has done extremely well with prompt return of bowel and bladder function, she is ambulating independently, tolerating regular diet, and her pain is well controlled with oral pain medications. Postoperatively her hemoglobin and hematocrit are 7.5 and 22.7 respectively which is consistent with observed operative losses. Prior to discharge the patient was given 300 mg of iron sucrose IV and she will take daily oral iron supplementation for the next 60 days. She is discharged at this time in an afebrile normotensive condition after counseling regarding precautionary symptoms, limitations activity, medications, and plans for follow-up which will be in 2 weeks. Medications at discharge will include oxycodone 5 mg p.o. Q 4-6 hours as needed pain dispense 12 with no refills, and Cipro 500 mg p.o. b.i.d. x5 days for UTI prophylaxis. In addition the patient will take [id number] iron and vitamin-C daily for the next 60 days to replenish her marrow iron stores which were note depleted by years of menorrhagia. Status at Discharge Cognitive/behavioral status at discharge: oriented Functional status at discharge: independent ambulation Overall status at discharge: patient is progressing back to baseline Time Spent with Patient Time spent: Less than 30 minutes Exam Vital Signs (past 8 hours): - 01/13/23 05:52 01/13/23 09:00 Temperature 98.2 F 96.8 F L Pulse Rate 67 55 L Respiratory Rate 16 15 Blood Pressure 100/62 104/59 L Pulse Oximetry 100 100 Oxygen Flow Rate 0 0 Oxygen Delivery Method Room Air Oxygen Flow Rate 0 Const General: cooperative and comfortable Nutritional Appearance: average body habitus Orientation: alert and oriented x3 HENMT Head: normal to inspection, atraumatic and abrasion Ears: hearing grossly normal bilaterally Face and sinus: face symmetric Eyes General: appearance normal, both eyes and all related structures Conjunctivae: conjunctivae normal Sclera: sclerae normal EOM: EOM intact bilaterally Neck Neck: normal visual inspection Resp Effort & Inspection: normal respiratory effort and able to speak in complete sentences Auscultation: clear to auscultation bilaterally Cardio Rate: regular rate Rhythm: regular rhythm Heart Sounds: S1 normal, S2 normal and no murmurs GI Inspection: normal to inspection and incision (Surgical dressings clean and dry) Palpation: soft, no hepatosplenomegaly and tender (Mild, diffuse postsurgical tenderness) Auscultation: normal bowel sounds External Female Exam: other (No significant bleeding noted) Extrem General: no calf tenderness Psych Appearance: grossly normal Mental Status: mental status grossly normal Speech and Movement: speech and movement normal Mood: congruent mood Affect: normal affect Attitude: cooperative Thought Process: normal Thought Content: normal Judgment: judgment good Objective Labs 01/13/23 06:07 Labs: Laboratory Results - last 24 hr 01/13/23 06:07 WBC 7.1 RBC 3.13 L Hgb 7.5 L Hct 22.7 L MCV 72.7 L MCH 23.9 L MCHC 32.9 RDW 15.3 H Plt Count 316 Neut % (Auto) 76.4 H Lymph % (Auto) 17.0 L [place] % (Auto) 6.3 Eos % (Auto) 0.1 L Baso % (Auto) 0.2 Neut # (Auto) 5400 Lymph # (Auto) 1200 [place] # (Auto) 400 Eos # (Auto) 0 Baso # (Auto) 0 PFSH Medical History GERD (gastroesophageal reflux disease) Hypokalemia Iron deficiency anemia Social History household members: spouse Smoking Status: Current some day smoker alcohol intake: current Discharge Plan Discharge Plan Patient Disposition: Home Provider Discharge Comment: Please review the written instructions you received when you were discharged from the hospital. Your follow-up appointment will be scheduled for 2 weeks after your surgery and I look forward to seeing you then. If however in the meanwhile, you have any issues, concerns, or questions, please contact me either through the office phone at [phone], or via the patient portal. Discharge orders & Medications Discharge Orders: Discharge (Order); Ordered 01/13/23 Ordered By: Segundo Cesar Prescriptions: New oxycodone 5 mg Tablet 5 mg PO Q6H PRN (Reason: Pain, Moderate (4-6)) Qty: 12 0RF ciprofloxacin HCl [Cipro] 500 mg tablet 500 mg PO BID 5 Days Qty: 10 0RF Follow up/Referrals: Segundo Cesar MD [Physician] - 01/27/23 2:00 pm (Appt:01/27 @ 2:[address] Cesar please arrive 15 min prior to your scheduled appointment time ) Jasmin Medina PA-C [Primary Care Provider] - Diet/Activity/Treatments Diet: Diet as Tolerated Activity: As tolerated Other treatments: You should take an iron tablet along with a vitamin-C tablet every day for the next couple of months to build your blood counts back up. [id number] Tylenol and/or ibuprofen may be used for additional pain relief. Zuzy-uyx-awpatjk stool softeners and/or MiraLax may be used as needed for constipation. Skin/Wound/Dressing Care Report to your healthcare provider any signs of infection, such as:: chills, fever Dressing: Dressing should be removed on morning of 01/14/2023 Visit Report/Discharge Packet Instructions: DI for Hysterectomy, DI for Laparoscopy Print Language: Tajik Discharge Data Primary Care Provider: Jasmin Medina Attending Provider: Segundo Cesar Quality VTE Deep Vein Thrombosis/Pulmonary Embolism Present on Admission: No
[2023-01-13 12:22] VITALS: BP 156/87; PULSE 63; RESP 20; TEMP 37.2; O2SAT 99
--- NOTE | 2023-01-13 13:10 | PC.NURSE ---
Pt is A&OX4, VSS, afebrile on RA. She denies nausea but not eating much breakfast this a.m. She reports pain is mild to lower abdomen at 3/10 and well controlled with IV toradol this a.m. She had her dennis dc'd at approximately 0600 this a.m. and is able to void 300 ml at about 1130 a.m. no drainage noted, and dressings to abdomen c/d/i. She is evaluated at bedside by and cleared for discharge home on oral antibiotics and pain medications. She verbalizes understanding of site care, medications, recomendation for OTC iron, VIT C, and stool softeners, as well as her activity restrictions and her follow up appointment on 01/27/23 with MD Cesar. She receives her IV iron supplement and is escorted via w/ch with all of her belongings to private vehicle with her spouse to discharge today at approximately 1220 pm.
== END 2023-01-13 12:18 | disposition home or self-care (01) ==
LOC: OR 09:10 → AC 14:27
PROVIDERS: Family Provider Specialist; PCP Physician Assistant; Referring Provider Obstetrics & Gynecology; Visit Provider Obstetrics & Gynecology
PROC: 0UT94ZZ Resection of Uterus, Percutaneous Endoscopic Approach (ICD-10-PCS; CPT 58571; principal; 2023-01-12 11:00)
DX: N92.0 Excessive and frequent menstruation with regular cycle (principal); D50.0 Iron deficiency anemia secondary to blood loss (chronic); D27.1 Benign neoplasm of left ovary; N88.8 Other specified noninflammatory disorders of cervix uteri; N80.03 Adenomyosis of the uterus; D25.9 Leiomyoma of uterus, unspecified; K66.0 Peritoneal adhesions (postprocedural) (postinfection)
CPT/HCPCS: 58571; 36415; 85025; J0131; J0690; J1100; J1170; J1756; J1885; J2405; J2704; J2795; J3010; J3490

== ENCOUNTER 2023-01-16 15:40 | Emergency (ER) | payer MEDICAID, SELFPAY ==
[2023-01-12 14:31] VITALS: BMI 21.6
[2023-01-16] VITALS (17 sets, daily range): BP systolic 91–133; BP diastolic 53–72; PULSE 62–94; RESP 16–30; TEMP 36.4; O2SAT 99–100; BMI 21.9
--- NOTE | 2023-01-16 18:11 | ED.ABDPAIN ---
HPI - Abdominal Pain General Chief Complaint: Abdominal Pain Stated Complaint: Vomiting Time Seen by Provider: 01/16/23 18:07 History of Present Illness HPI narrative: 42-year-old female smoker with history of chronic blood loss anemia, intractable nausea and vomiting, prior episodes of hypokalemia presents with nausea and vomiting yesterday with associated weakness and generally feeling fatigued. She states she feels quite similar to prior episodes of hypokalemia. Patient was recently admitted here for a total laparoscopic hysterectomy and left salpingo-oophorectomy with right salpingectomy. She denies any fever or chills. She has no chest pain, shortness of breath or cough. She denies any abdominal pain. She denies dysuria, frequency or urgency. Related Data Previous Rx's Medication Instructions Recorded ciprofloxacin HCl 500 mg tablet 500 mg PO BID 5 days #10 tabs 01/13/23 (Cipro) oxycodone 5 mg tablet 5 mg PO Q6H PRN Pain, Moderate 01/13/23 (4-6) #12 tabs Allergies Allergy/AdvReac Type Severity Reaction Status Date / Time No Known Drug Allergies Allergy Unknown Verified 12/04/22 08:30 [NO KNOWN DRUG ALLERGIES] Review of Systems Review of Systems Narrative: GENERAL: Denies chills, fatigue, malaise, fever, sweats. HEENT: Denies sinus pain, ear pain, sore throat, difficulty swallowing, dizziness. RESPIRATORY: Denies dyspnea, cough, wheezing, hemoptysis, sputum. CARDIOVASCULAR: Denies chest pain, palpitations, orthopnea, edema, GASTROINTESTINAL: See HPI : Denies dysuria, frequency, incontinence, hematuria, urinary retention. MUSCULOSKELETAL: denies weakness, joint pain, or bony pain SKIN: Denies rash, skin lesions, or other NEUROLOGIC: Denies weakness, headache, numbness, change in speech, confusion, seizures, incoordination. PSYCHIATRIC: No concerning psychosocial issues. 12 point review of systems is negative except for those stated above Patient History Medical History GERD (gastroesophageal reflux disease) Hypokalemia Iron deficiency anemia Social History household members: spouse Smoking Status: Current some day smoker alcohol intake: current Smoking Status: Current some day smoker alcohol intake frequency: a few times a month Substance Use Type: does not use Exam Narrative Exam Narrative: GENERAL: [42] year old patient appears stated age. Well-developed patient, in mild distress. HEAD: Atraumatic. Normocephalic. EYES: Pupils equal round and reactive. Extraocular motions intact. No scleral icterus. No injection or drainage. ENT: Nose without bleeding, purulent drainage. Throat without erythema, tonsillar hypertrophy or exudate. Airway patent. NECK: Trachea midline. Non tender CARDIOVASCULAR: Regular rate and rhythm without murmurs, gallops, or rubs. RESPIRATORY: Clear to auscultation. Breath sounds equal bilaterally. No wheezes, rales, or rhonchi. GASTROINTESTINAL: Abdomen soft, non-tender, nondistended. EXTREMITIES: No edema or joint tenderness. BACK: Nontender without deformity or crepitance. No flank tenderness. NEURO: AOx3. SKIN: No rash or erythema of visible areas Initial Vital Signs Initial Vital Signs: Vital Signs Temperature 97.6 F 01/16/23 16:05 Pulse Rate 94 H 01/16/23 16:05 Respiratory Rate 16 01/16/23 16:05 Blood Pressure 98/66 01/16/23 16:05 Pulse Oximetry 99 01/16/23 16:05 Oxygen Delivery Method Room Air 01/16/23 16:05 Course Orders Ordered: ED Orders 01/16/23 18:00 Basic Metabolic Panel Stat Complete Blood Count AUTO DIFF Stat MAG [Magnesium] Stat Type and Screen Stat 01/16/23 18:05 EKG-12 Lead Stat 01/16/23 19:03 Urine Culture Stat Urine Microscopic Stat 01/16/23 23:29 CT abdomen pelvis w con Stat Dextrose (D10w) 250 mls @ 999 mls/hr IV PRN PRN PRN Reason: Hypoglycemia Last Infusion: 01/17/23 00:04 Dose: 0 mls/hr Documented By: Admin: 01/16/23 23:38 Dose: 999 mls/hr Documented By: Infusion: 01/16/23 21:32 Dose: 0 mls/hr Documented By: Admin: 01/16/23 21:07 Dose: 999 mls/hr Documented By: ANDREA Dextrose (D10w) 250 mls @ 999 mls/hr IV PRN PRN PRN Reason: Hypoglycemia Ondansetron HCl (Ondansetron 4 Mg/2 Ml Inj) 4 mg IV NOW PRN PRN Reason: Nausea And Vomiting Last Admin: 01/16/23 18:25 Dose: 4 mg Documented By: Discontinued Medications Sodium Chloride (Normal Saline 0.9%) 1,000 mls @ 1,000 mls/hr IV BOLUS ONE Stop: 01/16/23 19:13 Last Infusion: 01/16/23 19:34 Dose: 0 mls/hr Documented By: Admin: 01/16/23 18:28 Dose: 1,000 mls/hr Documented By: Sodium Chloride (Normal Saline 0.9%) 1,000 mls @ 1,000 mls/hr IV BOLUS ONE Stop: 01/16/23 21:45 Last Infusion: 01/16/23 22:50 Dose: 0 mls/hr Documented By: Admin: 01/16/23 21:33 Dose: 1,000 mls/hr Documented By: ANDREA Metoclopramide HCl (Metoclopramide 10 Mg/2 Ml Inj) 10 mg IV NOW ONE Stop: 01/16/23 20:47 Last Admin: 01/16/23 21:33 Dose: 10 mg Documented By: ANDREA Pantoprazole Sodium (Pantoprazole 40 Mg Vial) 40 mg IV NOW ONE Stop: 01/16/23 20:47 Last Admin: 01/16/23 21:06 Dose: 40 mg Documented By: ANDREA Vital Signs Vital signs: Vital Signs - 8 hr 01/16/23 19:00 01/16/23 19:01 01/16/23 19:01 Pulse Rate 66 65 Respiratory Rate 26 H 30 H Blood Pressure 133/67 Pulse Oximetry 100 100 Oxygen Delivery Method Room Air 01/16/23 19:08 01/16/23 19:30 01/16/23 19:30 Pulse Rate 66 Respiratory Rate 20 25 H Blood Pressure 105/59 L Pulse Oximetry 100 Oxygen Delivery Method Room Air 01/16/23 20:00 01/16/23 20:00 01/16/23 20:30 Pulse Rate 66 Respiratory Rate Blood Pressure 106/63 108/68 Pulse Oximetry 100 Oxygen Delivery Method 01/16/23 20:30 01/16/23 21:00 01/16/23 21:00 Pulse Rate 70 64 Respiratory Rate 21 23 Blood Pressure 116/72 Pulse Oximetry 100 100 Oxygen Delivery Method Room Air 01/16/23 21:30 01/16/23 21:30 01/16/23 22:00 Pulse Rate 67 Respiratory Rate Blood Pressure 112/60 107/62 Pulse Oximetry 100 Oxygen Delivery Method 01/16/23 22:00 01/16/23 22:30 01/16/23 22:30 Pulse Rate 71 65 Respiratory Rate 21 Blood Pressure 113/61 Pulse Oximetry 100 100 Oxygen Delivery Method 01/16/23 22:48 01/16/23 22:48 01/16/23 23:00 Pulse Rate 64 Respiratory Rate Blood Pressure 116/64 109/60 Pulse Oximetry 100 Oxygen Delivery Method 01/16/23 23:00 01/16/23 23:30 01/16/23 23:30 Pulse Rate 62 64 Respiratory Rate 23 Blood Pressure 91/53 L Pulse Oximetry 100 100 Oxygen Delivery Method 01/16/23 23:42 01/16/23 23:42 01/17/23 00:00 Pulse Rate 65 Respiratory Rate 23 Blood Pressure 100/56 L 103/58 L Pulse Oximetry 100 Oxygen Delivery Method Room Air 01/17/23 00:00 01/17/23 00:38 01/17/23 00:46 Pulse Rate 67 68 61 Respiratory Rate 20 Blood Pressure Pulse Oximetry 100 100 Oxygen Delivery Method Room Air 01/17/23 00:46 01/17/23 00:49 01/17/23 00:49 Pulse Rate 61 Respiratory Rate 20 Blood Pressure 85/54 L 92/53 L Pulse Oximetry 100 Oxygen Delivery Method 01/17/23 00:50 01/17/23 00:50 01/17/23 00:55 Pulse Rate 59 L 61 Respiratory Rate 19 19 Blood Pressure 94/53 L Pulse Oximetry 100 100 Oxygen Delivery Method 01/17/23 00:55 01/17/23 01:00 01/17/23 01:00 Pulse Rate 59 L Respiratory Rate 21 Blood Pressure 98/54 L 104/58 L Pulse Oximetry 100 Oxygen Delivery Method Room Air 01/17/23 01:15 01/17/23 01:15 Pulse Rate 58 L Respiratory Rate 16 Blood Pressure 95/57 L Pulse Oximetry 99 Oxygen Delivery Method MDM - Abdominal Pain Lab Data 01/16/23 18:00 01/16/23 18:00 Labs: Lab Results 01/16/23 01/16/23 01/16/23 Range/Units 18:00 18:00 18:00 WBC 7.6 (4.5-11.0) X10^3/uL RBC 4.87 (4.0-5.2) X10^6/uL Hgb 11.6 L (12.0-16.0) g/dL Hct 36.2 (36-46) % MCV 74.3 L (80-100) fL MCH 23.8 L (26-34) PG MCHC 32.1 (30-36) % RDW 15.2 H (11.6-14.8) % Plt Count 512 H (150-400) X10^3/uL Neut % (Auto) 80.6 H (50-75) % Lymph % (Auto) 13.2 L (25-40) % [place] % (Auto) 5.0 (3-14) % Eos % (Auto) 0.7 L (2-4) % Baso % (Auto) 0.5 (0-2) % Neut # (Auto) 6100 (6740-3438) /uL Lymph # (Auto) 1000 L (2856-2814) /uL [place] # (Auto) 400 (0-900) /uL Eos # (Auto) 100 (0-450) /uL Baso # (Auto) 0 (0-100) /uL Sodium 138 (137-145) mmol/L Potassium 4.3 (3.4-5.1) mmol/L Chloride 107 (98-107) mmol/L Carbon Dioxide 15 L (22-32) mmol/L BUN 7 (7-17) mg/dL Creatinine 0.65 (0.52-1.04) mg/dL Estimated GFR > 60 (>60) mL/min BUN/Creatinine Ratio 10.8 (6-22) Glucose 69 L (70-100) mg/dL Calcium 9.1 (8.4-10.2) mg/dL Magnesium (1.6-2.3) mg/dL Urine RBC (0-5/HPF) Urine WBC (0-5/HPF) Ur Squamous Epith Cells (0-5/HPF) Urine Bacteria (None) Hyaline Casts (None) Ur Culture Indicated? Blood Type A Positive Antibody Screen Negative 01/16/23 01/16/23 Range/Units 18:00 19:03 WBC (4.5-11.0) X10^3/uL RBC (4.0-5.2) X10^6/uL Hgb (12.0-16.0) g/dL Hct (36-46) % MCV (80-100) fL MCH (26-34) PG MCHC (30-36) % RDW (11.6-14.8) % Plt Count (150-400) X10^3/uL Neut % (Auto) (50-75) % Lymph % (Auto) (25-40) % [place] % (Auto) (3-14) % Eos % (Auto) (2-4) % Baso % (Auto) (0-2) % Neut # (Auto) (8195-6608) /uL Lymph # (Auto) (8701-8149) /uL [place] # (Auto) (0-900) /uL Eos # (Auto) (0-450) /uL Baso # (Auto) (0-100) /uL Sodium (137-145) mmol/L Potassium (3.4-5.1) mmol/L Chloride (98-107) mmol/L Carbon Dioxide (22-32) mmol/L BUN (7-17) mg/dL Creatinine (0.52-1.04) mg/dL Estimated GFR (>60) mL/min BUN/Creatinine Ratio (6-22) Glucose (70-100) mg/dL Calcium (8.4-10.2) mg/dL Magnesium 2.1 (1.6-2.3) mg/dL Urine RBC 0-1/hpf (0-5/HPF) Urine WBC 1-5/hpf (0-5/HPF) Ur Squamous Epith Cells 1-5 /hpf (0-5/HPF) Urine Bacteria Occasional (0-1) (None) Hyaline Casts 0-1/lpf (None) Ur Culture Indicated? Cult not indicated Blood Type Antibody Screen Point of care testing: Point of Care Testing Test Results Negative Glucose POC 107 Urine Dip Bedside Urine Glucose Negative Bedside Urine Bilirubin - Negative Bedside Urine Ketone +++ 80 Urine Specific [place] 1.030 Bedside Urine Occult Blood + Bedside Urine pH 6.0 Bedside Urine Protein + 30 Bedside Urine Urobilinogen - Negative Bedside Urine Nitrite - Negative Bedside Urine Leukocytes - Negative Esterase MDM Narrative Medical decision making narrative: CC: 42-year-old female with nausea, vomiting and weakness Complicating co-morbidities: History of hypokalemia, 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 Pertinent findings: No leukocytosis or left shift, hemoglobin 11.6, actually quite good for her, platelets 512, sodium 138, potassium 4.3, chloride 107, creatinine 0.65, glucose 69 Independently reviewed EKG as above Treatments: fluids, D10, zofran, reglan, protonix Re-evaluations: Patient feeling much better, labs improved, tolerating orals Discussion: Patient presents with nausea and vomiting and concerns for possible recurrence of electrolyte abnormality. Thankfully her labs are reassuring with the exception of hypoglycemia which improves after dextrose, she is given multiple antiemetics and fluids and feels much better, she is tolerating orals by the end of the visit and feels much better, ambulatory, not dizzy or lightheaded. Disposition: see below, along with detailed discharge instructions that have been reviewed with patient as well as indications for ED re-evaluation and additional outpatient follow up Discharge Plan Departure Patient Disposition: Home Clinical Impression: Vomiting, Hypoglycemia Activity Restrictions/Additional Instructions: *You have been diagnosed with [nausea and vomiting as well as hypoglycemia. As we discussed your labs are otherwise reassuring, most importantly your electrolytes and blood count.] *What to do: *Please continue to take your regular medications as directed. [ ] New medication prescriptions sent to your pharmacy: [ ] [ ] New medication written as a paper prescription [ ] No new medications given *Please follow up with your primary care provider in 2-3 days, call for an appointment. Let them know you were seen in the Emergency Department and that we ask that you be seen in follow up. We will electronically transmit a record of today's note if your PCP is in our system *If you do not have a primary care provider please contact the [facility] Resource line at [phone]. They will ask some questions about your medical history and help get you set up with a doctor in the community. *Return to Emergency Department if you should have any new, worsening or concerning symptoms, such as [fever greater than 101 F, shaking chills, worsening pain, persistent vomiting or other bothersome symptoms] Prescriptions: No Action oxycodone 5 mg Tablet 5 mg PO Q6H PRN (Reason: Pain, Moderate (4-6)) Qty: 12 0RF ciprofloxacin HCl [Cipro] 500 mg tablet 500 mg PO BID 5 Days Qty: 10 0RF Referrals: Jasmin Medina PA-C [Primary Care Provider] - Stand Alone Forms: Patient Portal/API
[2023-01-16 18:15] LABS: Add Manual Diff / Slide Review NO; Basophils Absolute Auto 0 /uL (0-100); Basophils Percent Auto 0.5 % (0-2); Eosinophils Absolute Auto 100 /uL (0-450); Eosinophils Percent Auto 0.7 % (2-4); Hematocrit 36.2 % (36-46); Hemoglobin 11.6 g/dL (12.0-16.0); Lymphocytes Absolute Auto 1000 /uL (1100-4500); Lymphocytes Percent Auto 13.2 % (25-40); Mean Corpuscular HGB Conc 32.1 % (30-36); Mean Corpuscular Hemoglobin 23.8 PG (26-34); Mean Corpuscular Volume 74.3 fL (80-100); Monocytes Absolute Auto 400 /uL (0-900); Neutrophils Absolute Auto 6100 /uL (1500-7000); Neutrophils Percent Auto 80.6 % (50-75); Platelet Count 512 X10^3/uL (150-400); Red Blood Cell Count 4.87 X10^6/uL (4.0-5.2); Red Cell Distribution Width 15.2 % (11.6-14.8); White Blood Cell Count 7.6 X10^3/uL (4.5-11.0)
[2023-01-16 18:20] LABS: BUN Creatinine Ratio 10.8 (6-22); Blood Urea Nitrogen 7 mg/dL (7-17); Calcium 9.1 mg/dL (8.4-10.2); Carbon Dioxide 15 mmol/L (22-32); Chloride 107 mmol/L (98-107); Estimated Glomerular Filt Rate > 60 mL/min (>60); Glucose 69 mg/dL (70-100); HEMOLYSIS < 15 (0-50); Potassium 4.3 mmol/L (3.4-5.1); Sodium 138 mmol/L (137-145)
[2023-01-16] MEDS: ONDANSETRON 4 MG/2 ML INJ IV (18:25)
[2023-01-16] MEDS: SODIUM CHLORIDE 0.9% 1,000 ML 1000 ML IV ×2 (18:28→21:33)
[2023-01-16 18:36] LABS: Magnesium 2.1 mg/dL (1.6-2.3)
[2023-01-16 19:21] LABS: Bacteria Urine Occasional (0-1); Culture Indicated Urine Cult Not Indicated; Hyaline Casts Urine 0-1/LPF; RBC Urine 0-1/HPF (0-5/HPF); Squamous Epithelial Cell Urine 1-5 /HPF (0-5/HPF); WBC Urine 1-5/HPF (0-5/HPF)
[2023-01-16] MEDS: PANTOPRAZOLE 40 MG VIAL IV (21:06)
[2023-01-16] MEDS: DEXTROSE 10 % IN WATER 250 ML 999 ML IV ×2 (21:07→23:38)
[2023-01-16] MEDS: METOCLOPRAMIDE 10 MG/2 ML INJ IV (21:33)
--- NOTE | 2023-01-16 23:29 | DI.CT.S_ITS ---
PROCEDURE: CT ABDOMEN PELVIS W CON INDICATIONS: abdominal pain, recent hysterectomy TECHNIQUE: After the administration of IV contrast, axial sections were acquired from the lung bases to the pubic symphysis. Coronal and sagittal reformats were performed. For radiation dose reduction, the following was used: automated exposure control, adjustment of mA and/or kV according to patient size. COMPARISON: None. FINDINGS: Image quality: Excellent. Lung bases: There is mild atelectasis in the lung bases. Heart: Heart is normal in size. ABDOMEN: Liver: There is mild focal fatty infiltration in the anterior left hepatic lobe. Gallbladder: Multiple calcified gallstones are demonstrated in the gallbladder without wall thickening or pericholecystic fluid. Biliary ducts: No biliary ductal dilatation. Pancreas: Unremarkable. Spleen: Normal in size. Adrenal Glands: No adrenal nodules. Kidneys and Ureters: No hydronephrosis. Stomach and Bowel: There is mild gastric wall thickening in the antrum. Small and large bowel loops are normal in caliber and wall thickness. No pericecal inflammatory changes to suggest appendicitis. Peritoneum: No abnormal intraperitoneal fluid. No free air. Ventral Wall: No hernia. Abdominal Nodes: No retroperitoneal or mesenteric adenopathy by size criteria. Vessels: Aorta and inferior vena cava are normal in size. PELVIS: Pelvic Organs: The uterus is surgically absent. There is mild thickening, hyperemia, and edema along the vaginal cuff. No loculated fluid collections to suggest an abscess. Bladder: Unremarkable. Pelvic Nodes: No enlarged lymph nodes. Miscellaneous: No inguinal hernias are seen. Bones: Visualized osseous structures demonstrate no suspicious focal lesions. IMPRESSION: 1. Surgical absence of the uterus with mild edema, hyperemia, and soft tissue thickening along the vaginal cuff which may represent postsurgical changes. No discrete fluid collections to suggest an abscess. 2. Mild gastric wall thickening in the antrum suggestive of a gastritis. 3. Cholelithiasis without CT evidence of cholecystitis. Dictated by: Silvano Pruitt M.D. on 01/17/2023 at 1:39 Approved by: Silvano Pruitt M.D. on 01/17/2023 at 1:44
[2023-01-17] VITALS (14 sets, daily range): BP systolic 85–104; BP diastolic 52–60; PULSE 58–68; RESP 14–22; O2SAT 98–100
== END 2023-01-17 02:58 | disposition home or self-care (01) ==
PROVIDERS: Emergency Medicine; Emergency Provider Emergency Medicine; Family Provider Specialist; PCP Physician Assistant
DX: E16.2 Hypoglycemia, unspecified (principal); R11.2 Nausea with vomiting, unspecified; R10.9 Unspecified abdominal pain
CPT/HCPCS: 36415; 74177; 80048; 81003; 81015; 81025; 82962; 83735; 85025; 86850; 86900; 86901; 87086; 93005; 96361; 96374; 96375; 99284; C9113; J2405; J2765; Q9967

== ENCOUNTER 2024-03-10 20:44 | Emergency (ER) | payer OTHER, SELFPAY ==
[2023-01-12 14:31] VITALS: BMI 21.6
[2024-03-10] VITALS (9 sets, daily range): BP systolic 109–119; BP diastolic 61–65; PULSE 52–62; RESP 16; TEMP 36.6; O2SAT 98–100; BMI 22.1
--- NOTE | 2024-03-10 20:56 | ED_ITS ---
HPI - Abdominal Pain General Chief Complaint: Abdominal Pain Stated Complaint: abd pain Time Seen by Provider: 03/10/24 20:45 Source: patient Mode of arrival: Ambulatory History of Present Illness HPI narrative: 43yoF with no reported PMH presents for 3 days of midepigastric pain and 1 day of nausea with 4 episodes of nonbloody, nonbilious vomiting. Patient saw her PCP today, who ran an unremarkable urinalysis and sent her to the ED to rule out pancreatitis and appendicitis. Patient reports previous hx of hysterectomy, denies other abdominal surgeries. PCP also ordered H. pylori breath test. No medications taken prior to arrival. Related Data Previous Rx's Medication Instructions Recorded oxycodone 5 mg tablet 5 mg PO Q6H PRN Pain, Moderate 01/13/23 (4-6) #12 tabs dicyclomine 20 mg tablet 20 mg PO TID #30 tabs 03/10/24 famotidine 20 mg tablet (Pepcid) 20 mg PO BID #30 tabs 03/10/24 sucralfate 1 gram tablet (Carafate) 1 g PO QAC #30 tabs 03/10/24 ondansetron 4 mg disintegrating 4 mg PO Q8H PRN nausea and 03/11/24 tablet vomiting #30 tabs Allergies Allergy/AdvReac Type Severity Reaction Status Date / Time No Known Drug Allergies Allergy Unknown Verified 03/10/24 20:54 [NO KNOWN DRUG ALLERGIES] Patient History Medical History Iron deficiency anemia GERD (gastroesophageal reflux disease) Hypokalemia Social History household members: spouse Smoking Status: Current some day smoker alcohol intake: current Smoking Status: Current some day smoker alcohol intake frequency: a few times a month Substance Use Type: does not use Exam Initial Vital Signs Initial Vital Signs: Vital Signs Temperature 97.9 F 03/10/24 20:45 Pulse Rate 59 L 03/10/24 20:45 Respiratory Rate 16 03/10/24 20:45 Blood Pressure 119/61 03/10/24 20:45 Pulse Oximetry 100 03/10/24 20:45 Oxygen Delivery Method Room Air 03/10/24 20:45 Const: Awake, alert, no acute distress, nontoxic appearing Cardiac: regular rate, regular rhythm RESP: unlabored, clear bilaterally, no wheezing GI: Soft, midepigastric tenderness to deep palpation without rebound or guarding Skin: Warm, Dry, intact, no rashes Neuro: AO x3, CN II-XII grossly intact, moves all extremities Course Orders Ordered: ED Orders 03/10/24 20:52 CBC Auto Diff [Complete Blood Count AUTO DIFF] Stat CMP [Comprehensive Metabolic Panel] Stat Lactate (Lactic Acid) Stat Lipase Stat Troponin & CK Cardiac Panel Stat 03/10/24 20:55 CT abdomen pelvis w con Stat EKG-12 Lead Stat Discontinued Medications Acetaminophen (Acetaminophen 325 Mg Tablet) 975 mg PO NOW ONE Stop: 03/10/24 22:59 Last Admin: 03/10/24 23:02 Dose: 975 mg Documented By: Al Hydrox/Mg Hydrox/Simethicone (Mag Hydrox/Alum/Simeth 30 Ml Udc) 30 ml PO NOW ONE Stop: 03/10/24 22:52 Last Admin: 03/10/24 23:02 Dose: 30 ml Documented By: Lidocaine HCl (Lidocaine Viscous 2% 15 Ml Solution) 15 ml PO NOW ONE Stop: 03/10/24 22:52 Last Admin: 03/10/24 23:02 Dose: 15 ml Documented By: Morphine Sulfate (Morphine 4 Mg/Ml Inj) 4 mg IV NOW ONE Stop: 03/10/24 20:56 Last Admin: 03/10/24 21:05 Dose: 4 mg Documented By: ANTON Ondansetron HCl (Ondansetron 4 Mg/2 Ml Inj) 4 mg IV NOW ONE Stop: 03/10/24 20:56 Last Admin: 03/10/24 21:06 Dose: 4 mg Documented By: ANTON Vital Signs Vital signs: Vital Signs - 8 hr 03/10/24 20:45 03/10/24 20:49 03/10/24 20:49 Temperature 97.9 F Pulse Rate 59 L 62 Respiratory Rate 16 Blood Pressure 119/61 119/61 Pulse Oximetry 100 100 Oxygen Delivery Method Room Air Room Air 03/10/24 21:00 03/10/24 21:00 03/10/24 21:30 Temperature Pulse Rate 56 L 54 L Respiratory Rate Blood Pressure 109/63 Pulse Oximetry 100 100 Oxygen Delivery Method 03/10/24 22:00 03/10/24 22:30 03/10/24 22:36 Temperature Pulse Rate 54 L 57 L 52 L Respiratory Rate Blood Pressure Pulse Oximetry 98 98 100 Oxygen Delivery Method Room Air 03/10/24 22:36 03/10/24 22:47 03/10/24 22:47 Temperature Pulse Rate 59 L Respiratory Rate Blood Pressure 118/62 115/65 Pulse Oximetry 100 Oxygen Delivery Method 03/10/24 23:00 03/10/24 23:00 Temperature Pulse Rate 56 L Respiratory Rate Blood Pressure 113/65 Pulse Oximetry 100 Oxygen Delivery Method MDM - Abdominal Pain Differential Diagnosis Differential diagnosis: Likely abdominal pain, gastroenteritis and pancreatitis Lab Data 03/10/24 20:52 03/10/24 20:52 Labs: Lab Results 03/10/24 Range/Units 20:52 WBC 5.6 (4.5-11.0) X10^3/uL RBC 4.74 (4.0-5.2) X10^6/uL Hgb 13.0 (12.0-16.0) g/dL Hct 39.0 (36-46) % MCV 82.4 (80-100) fL MCH 27.5 (26-34) PG MCHC 33.4 (30-36) % RDW 14.7 (11.6-14.8) % Plt Count 340 (150-400) X10^3/uL Neut % (Auto) 63.6 (50-75) % Lymph % (Auto) 22.9 L (25-40) % Spencer % (Auto) 5.7 (3-14) % Eos % (Auto) 7.1 H (2-4) % Baso % (Auto) 0.7 (0-2) % Neut # (Auto) 3500 (3813-5417) /uL Lymph # (Auto) 1300 (8455-7797) /uL Spencer # (Auto) 300 (0-900) /uL Eos # (Auto) 400 (0-450) /uL Baso # (Auto) 0 (0-100) /uL Sodium 136 L (137-145) mmol/L Potassium 3.7 (3.4-5.1) mmol/L Chloride 102 (98-107) mmol/L Carbon Dioxide 27 (22-32) mmol/L BUN 9 (7-17) mg/dL Creatinine 0.77 (0.52-1.04) mg/dL Estimated GFR > 60 (>60) mL/min BUN/Creatinine Ratio 11.7 (6-22) Glucose 100 (70-100) mg/dL Lactate 0.7 (0.7-2.1) mmol/L Calcium 9.3 (8.4-10.2) mg/dL Total Bilirubin 0.7 (0.2-1.3) mg/dL AST 25 (14-36) IU/L ALT 16 (<35) IU/L Alkaline Phosphatase 71 (38-126) U/L Total Creatine Kinase 51 (30-135) U/L Troponin I < 0.012 (0.01-0.034) ng/mL Total Protein 7.6 (6.3-8.2) g/dL Albumin 4.2 (3.5-5.0) g/dL Globulin 3.4 (1.7-4.1) g/dL Albumin/Globulin Ratio 1.2 (1.0-2.8) Lipase 64 (23-300) U/L Imaging Data CT scan - abdomen/pelvis: Radiologist's Impression: PROCEDURE: CT ABDOMEN PELVIS W CON INDICATIONS: 3 days midepigastric pain, n/v TECHNIQUE: After the administration of intravenous contrast, axial sections acquired from the lung bases to the pubic symphysis. Coronal and sagittal reformats were performed. For radiation dose reduction, the following was used: automated exposure control, adjustment of mA and/or kV according to patient size. COMPARISON: [facility], CT, CT ABDOMEN PELVIS W CON, 01/17/2023, 0:28. FINDINGS: Image quality: Diagnostic. Lower Chest: No significant findings. ABDOMEN: Liver: No solid mass. Gallbladder: Multiple dependent gallstones without CT evidence of acute cholecystitis. Biliary ducts: No biliary dilation. Pancreas: No ductal dilation. Spleen: Size is within normal limits. Adrenal Glands: No adrenal nodules. Kidneys and Ureters: No hydronephrosis. No solid mass. No complex renal cystic lesion which requires follow up. Stomach and Bowel: Normal colonic caliber, without significant wall thickening. Appendix is not definitively seen. No inflammatory changes are around the cecum. Peritoneum: No abnormal intraperitoneal fluid. No free air. Ventral Wall: No significant ventral hernia. Abdominal Nodes: No retroperitoneal or mesenteric adenopathy by size criteria. Vessels: Aorta and inferior vena cava are normal in size. PELVIS: Pelvic Organs: Unremarkable. Bladder: No bladder wall thickening, accounting for underdistention. Pelvic Nodes: No enlarged lymph nodes. Miscellaneous: No inguinal hernias are seen. Bones: No aggressive osseous abnormality. IMPRESSION: 1. No acute findings within the abdomen or pelvis to explain patient's symptoms. 2. Cholelithiasis without evidence of acute cholecystitis. Dictated by: Salvaodr Ware M.D. on 03/10/2024 at 21:38 Approved by: Salvador Ware M.D. on 03/10/2024 at 21:42 [facility] Narrative Medical decision making narrative: Otherwise well-appearing patient with 3 days of symptoms. Abdomen soft, no peritoneal signs, hemodynamically stable. Labs, CT imaging, medications for pain and nausea ordered. Laboratory work reviewed, no significant abnormalities. WBC count 5.6, hemoglobin 13.0, platelets 340, sodium 136, potassium 3.7, creatinine 0.77, normal liver enzymes, lipase 64. Urinalysis from outside reviewed, no significant abnormalities identified. Patient reassessed, resting comfortably in bed, pain and nausea improved with medications. Able to tolerate p.o. without emesis. Patient counseled on lab and imaging findings, counseled that she does have gallstones but no evidence of cholecystitis or gallstone pancreatitis. She was encouraged to follow up with her PCP to get the H pylori breath test. Otherwise recommended follow up with General surgery if she continues to experience abdominal pains. Bentyl, carafate, pepcid sent to pharmacy of choice. Discharge Plan Departure Patient Disposition: Home Clinical Impression: Abdominal pain Instructions: DI for Abdominal Pain-Adult Activity Restrictions/Additional Instructions: Your laboratory work and CT imaging today did not show any signs of infection or inflammation. You do have gallstones, but no signs of pancreatitis or appendicitis, which are some of the things that your primary care doctor worried about. Take the prescribed medications for abdominal pain. Continue to follow up with your primary care doctor about your abdominal pain. Prescriptions: New dicyclomine 20 mg tablet 20 mg PO TID Qty: 30 0RF famotidine [Pepcid] 20 mg tablet 20 mg PO BID Qty: 30 0RF sucralfate [Carafate] 1 gram tablet 1 g PO QAC Qty: 30 0RF ondansetron 4 mg tablet,disintegrating 4 mg PO Q8H PRN (Reason: nausea and vomiting) Qty: 30 0RF No Action oxycodone 5 mg Tablet 5 mg PO Q6H PRN (Reason: Pain, Moderate (4-6)) Qty: 12 0RF Referrals: Jasmin Medina PA-C [Primary Care Provider] - Stand Alone Forms: Patient Portal/API
--- NOTE | 2024-03-10 21:01 | EKG_ITS ---
[facility] [address] [address] Test Date: 2024-03-10 Pat Name: Penelope Luu Department: [facility] Room: Gender: Female Date Night Caregiver: madina : 1980 Requested By: Order Number: [id number] Reading MD: Roel Bustos MD Measurements Intervals Rea Rate: 55 P: 26 CO: 118 QRS: 55 QRSD: 76 T: 68 QT: 480 QTc: 459 Interpretive Statements Sinus bradycardia Nonspecific T wave abnormality Electronically Signed On 03-11-2024 7:32:19 PDT by Roel Bustos MD
[2024-03-10] MEDS: MORPHINE 4 MG/ML INJ IV (21:05)
[2024-03-10] MEDS: ONDANSETRON 4 MG/2 ML INJ IV (21:06)
[2024-03-10 21:09] LABS: Add Manual Diff / Slide Review NO; Basophils Absolute Auto 0 /uL (0-100); Basophils Percent Auto 0.7 % (0-2); Eosinophils Absolute Auto 400 /uL (0-450); Eosinophils Percent Auto 7.1 % (2-4); Lymphocytes Absolute Auto 1300 /uL (1100-4500); Lymphocytes Percent Auto 22.9 % (25-40); Mean Corpuscular HGB Conc 33.4 % (30-36); Mean Corpuscular Hemoglobin 27.5 PG (26-34); Mean Corpuscular Volume 82.4 fL (80-100); Monocytes Absolute Auto 300 /uL (0-900); Monocytes Percent Auto 5.7 % (3-14); Neutrophils Absolute Auto 3500 /uL (1500-7000); Neutrophils Percent Auto 63.6 % (50-75); Platelet Count 340 X10^3/uL (150-400); Red Blood Cell Count 4.74 X10^6/uL (4.0-5.2); Red Cell Distribution Width 14.7 % (11.6-14.8); White Blood Cell Count 5.6 X10^3/uL (4.5-11.0)
[2024-03-10 21:18] LABS: Alanine Aminotransferase 16 IU/L (<35); Albumin 4.2 g/dL (3.5-5.0); Albumin Globulin Ratio 1.2 (1.0-2.8); Alkaline Phosphatase 71 U/L (38-126); Aspartate Aminotransferase 25 IU/L (14-36); BUN Creatinine Ratio 11.7 (6-22); Bilirubin Total 0.7 mg/dL (0.2-1.3); Blood Urea Nitrogen 9 mg/dL (7-17); Calcium 9.3 mg/dL (8.4-10.2); Carbon Dioxide 27 mmol/L (22-32); Chloride 102 mmol/L (98-107); Creatine Kinase 51 U/L (30-135); Estimated Glomerular Filt Rate > 60 mL/min (>60); Globulin 3.4 g/dL (1.7-4.1); Glucose 100 mg/dL (70-100); HEMOLYSIS < 15 (0-50); Lactate (Lactic Acid) 0.7 mmol/L (0.7-2.1); Lipase 64 U/L (23-300); Potassium 3.7 mmol/L (3.4-5.1); Sodium 136 mmol/L (137-145); Total Protein 7.6 g/dL (6.3-8.2)
[2024-03-10 21:29] LABS: Troponin I < 0.012 ng/mL (0.01-0.034)
[2024-03-10] MEDS: ACETAMINOPHEN 325 MG TABLET 975 MG PO (23:02)
[2024-03-10] MEDS: MAG HYDROX/ALUM/SIMETH 30 ML UDC PO (23:02)
[2024-03-10] MEDS: LIDOCAINE VISCOUS 2% 15 ML SOLUTION PO (23:02)
== END 2024-03-10 23:14 | disposition home or self-care (01) ==
PROVIDERS: Emergency Provider Emergency Medicine; Family Provider Specialist; PCP Physician Assistant
DX: R10.13 Epigastric pain (principal); R11.2 Nausea with vomiting, unspecified
CPT/HCPCS: 36415; 74177; 80053; 82550; 83605; 83690; 84484; 85025; 93005; 93010; 96374; 96375; 99284; J2270; J2405; Q9967

== ENCOUNTER → 2024-03-15 15:34 | Outpatient (CLI) | payer OTHER, SELFPAY ==
[2023-01-12 14:31] VITALS: BMI 21.6
--- NOTE | 2024-03-15 15:39 | DI.RAD.S_ITS ---
PROCEDURE: XR ABDOMEN 1V INDICATIONS: Constipation, unspecified TECHNIQUE: One view of the abdomen acquired. COMPARISON: None. FINDINGS: Surgical changes and devices: None. Bowel: Bowel gas pattern is nonobstructive. Moderate fecal stasis throughout the colon is seen. No gross free air. Soft tissues: No suspicious abdominal calcifications. Visualized solid organ contours appear normal in size. Bones: No suspicious bony lesions. IMPRESSION: Moderate constipation. No gross free air. Dictated by: Iftikhar Shultz M.D. on 03/15/2024 at 17:40 Approved by: Iftikhar Shultz M.D. on 03/15/2024 at 17:40
[2024-03-17 12:36] LABS: Interpretation Negative (Negative)
== END ==
LOC: RAD 15:36
PROVIDERS: Family Provider Specialist; PCP Physician Assistant; Referring Provider Family Medicine; Visit Provider Family Medicine
DX: K59.00 Constipation, unspecified (principal)
CPT/HCPCS: 74018; 83013

== ENCOUNTER 2024-03-21 20:25 | Emergency (ER) | payer OTHER, SELFPAY ==
[2023-01-12 14:31] VITALS: BMI 21.6
[2024-03-21] VITALS (8 sets, daily range): BP systolic 114–154; BP diastolic 66–72; PULSE 52–67; RESP 15–29; TEMP 36.8; O2SAT 97–100; BMI 22.8
--- NOTE | 2024-03-21 20:50 | ED.NAVMDI ---
HPI - Nausea/Vomiting/Diarrhea General Chief complaint: Nausea/Vomiting/Diarrhea Stated complaint: not feeling well Time Seen by Provider: 03/21/24 20:31 Source: patient Mode of arrival: Ambulatory History of Present Illness HPI Narrative: Patient is a 43-year-old female. Return to the emergency department today with continued abdominal discomfort and nausea and vomiting and diarrhea. She was had issues like this in the past and most recently was seen here in this emergency department where she had a fairly extensive workup to include a CT scan without definitive treatment. She was discharged home with nausea medicine. She can not remember the name of it but states that it does not seem to be working for her and she was also having some back discomfort. No fevers. She had a bowel movement today. No constipation. No urinary symptoms. She has had hysterectomy. She was scheduled to see Gastroenterology on Thursday of next week. Related Data Previous Rx's Medication Instructions Recorded oxycodone 5 mg tablet 5 mg PO Q6H PRN Pain, Moderate 01/13/23 (4-6) #12 tabs dicyclomine 20 mg tablet 20 mg PO TID #30 tabs 03/10/24 famotidine 20 mg tablet (Pepcid) 20 mg PO BID #30 tabs 03/10/24 sucralfate 1 gram tablet (Carafate) 1 g PO QAC #30 tabs 03/10/24 ondansetron 4 mg disintegrating 4 mg PO Q8H PRN nausea and 03/11/24 tablet vomiting #30 tabs metoclopramide HCl 10 mg tablet 10 mg PO Q6H PRN nausea and 03/21/24 (Reglan) vomiting #20 tabs Allergies Allergy/AdvReac Type Severity Reaction Status Date / Time No Known Drug Allergies Allergy Unknown Verified 03/21/24 20:42 [NO KNOWN DRUG ALLERGIES] Review of Systems Review of Systems ROS Unobtainable: All systems reviewed & are unremarkable except as noted in HPI and below Patient History Medical History Iron deficiency anemia GERD (gastroesophageal reflux disease) Hypokalemia Social History household members: spouse Smoking Status: Current some day smoker alcohol intake: current Smoking Status: Current some day smoker alcohol intake frequency: a few times a month Substance Use Type: does not use Exam Initial Vital Signs Initial Vital Signs: Vital Signs Pulse Rate 67 03/21/24 20:32 Pulse Oximetry 98 03/21/24 20:32 Const General: cooperative and No ill appearing HENMT Head: normal to inspection and normocephalic Resp Effort & Inspection: normal respiratory effort Auscultation: clear to auscultation bilaterally Cardio Rate: bradycardic Rhythm: regular rhythm GI Inspection: non-distended Palpation: No firm, No guarding and tender Skin General: no rashes or lesions noted Neuro General: patient alert and patient awake Extrem General: normal to inspection Course Orders Ordered: ED Orders 03/21/24 20:40 Complete Blood Count AUTO DIFF Stat Comprehensive Metabolic Panel Stat Lipase Stat 03/21/24 20:51 US abdomen limited Stat Discontinued Medications Hydrocodone Bitart/Acetaminophen (Hydrocodone/Acet 5/325 Tablet) 1 tab PO NOW ONE Stop: 03/21/24 22:27 Ketorolac Tromethamine (Ketorolac 30 Mg/Ml Vial) 15 mg IV NOW ONE Stop: 03/21/24 20:53 Last Admin: 03/21/24 21:05 Dose: 15 mg Documented By: Ondansetron HCl (Ondansetron 4 Mg/2 Ml Inj) 4 mg IV NOW ONE Stop: 03/21/24 20:37 Last Admin: 03/21/24 21:07 Dose: 4 mg Documented By: Vital Signs Vital signs: Vital Signs - 8 hr 03/21/24 20:32 03/21/24 20:36 03/21/24 21:00 Temperature 98.3 F Pulse Rate 67 64 55 L Respiratory Rate 17 21 Blood Pressure 123/71 Pulse Oximetry 98 99 Oxygen Delivery Method Room Air 03/21/24 21:01 03/21/24 21:01 03/21/24 21:30 Temperature Pulse Rate 53 L 52 L Respiratory Rate 28 H 15 Blood Pressure 140/69 Pulse Oximetry 97 Oxygen Delivery Method Room Air 03/21/24 21:30 03/21/24 22:00 03/21/24 22:00 Temperature Pulse Rate 57 L Respiratory Rate 15 Blood Pressure 114/69 122/66 Pulse Oximetry 99 Oxygen Delivery Method 03/21/24 22:30 03/21/24 22:31 03/21/24 22:31 Temperature Pulse Rate 58 L 52 L Respiratory Rate 24 29 H Blood Pressure 154/72 H Pulse Oximetry 100 100 Oxygen Delivery Method MDM - Nausea/Vomiting/Diarrhea Medical Records Attestation: I reviewed the patient's medical records. Lab Data Attestation: I reviewed the patient's lab results. 03/21/24 20:40 03/21/24 20:40 Labs: Lab Results 03/21/24 Range/Units 20:40 WBC 6.5 (4.5-11.0) X10^3/uL RBC 4.98 (4.0-5.2) X10^6/uL Hgb 13.6 (12.0-16.0) g/dL Hct 40.9 (36-46) % MCV 82.1 (80-100) fL MCH 27.3 (26-34) PG MCHC 33.2 (30-36) % RDW 14.5 (11.6-14.8) % Plt Count 418 H (150-400) X10^3/uL Neut % (Auto) 74.4 (50-75) % Lymph % (Auto) 19.5 L (25-40) % Kemper % (Auto) 4.6 (3-14) % Eos % (Auto) 1.0 L (2-4) % Baso % (Auto) 0.5 (0-2) % Neut # (Auto) 4800 (8404-1933) /uL Lymph # (Auto) 1300 (6504-9351) /uL Kemper # (Auto) 300 (0-900) /uL Eos # (Auto) 100 (0-450) /uL Baso # (Auto) 0 (0-100) /uL Sodium 136 L (137-145) mmol/L Potassium 3.6 (3.4-5.1) mmol/L Chloride 97 L (98-107) mmol/L Carbon Dioxide 29 (22-32) mmol/L BUN 12 (7-17) mg/dL Creatinine 0.70 (0.52-1.04) mg/dL Estimated GFR > 60 (>60) mL/min BUN/Creatinine Ratio 17.1 (6-22) Glucose 98 (70-100) mg/dL Calcium 9.4 (8.4-10.2) mg/dL Total Bilirubin 0.6 (0.2-1.3) mg/dL AST 23 (14-36) IU/L ALT 12 (<35) IU/L Alkaline Phosphatase 67 (38-126) U/L Total Protein 8.0 (6.3-8.2) g/dL Albumin 4.5 (3.5-5.0) g/dL Globulin 3.5 (1.7-4.1) g/dL Albumin/Globulin Ratio 1.3 (1.0-2.8) Lipase 60 (23-300) U/L Serum , Qual Cancelled Imaging Data US - abdomen: Radiologist's Impression: PROCEDURE: US ABDOMEN LIMITED INDICATIONS: RUQ pain eval got GB pathology TECHNIQUE: Real-time scanning was performed of the abdominal and retroperitoneal organs, with image documentation. COMPARISON: [facility], CT, CT ABDOMEN PELVIS W CON, 03/10/2024, 21:25. FINDINGS: Liver: Liver is normal in size and homogeneous in echotexture. Gallbladder: Numerous gallstones are seen in the gallbladder. No gallbladder wall thickening or pericholecystic fluid. Sonographic Harris sign is negative. Biliary ducts: Intrahepatic bile ducts are non-dilated. Extrahepatic bile duct caliber measures 5.7 mm. Normal is 6-7 mm or less in diameter, or 10 mm or less post-cholecystectomy. Pancreas: Visualized portions of the pancreas are sonographically normal. Miscellaneous: No free abdominal fluid. IMPRESSION: Cholelithiasis without signs of acute cholecystitis. [facility] Narrative Medical decision making narrative: She was not hypokalemic today where she has been in the past when she was had issues with vomiting. She was tolerating oral intake. Right upper quadrant ultrasound today does show cholelithiasis without signs of acute cholecystitis. This could potentially be the source of her discomfort however her LFTs are unremarkable. Does not have a leukocytosis. Lipase is unremarkable. There was no other findings on the ultrasound that shows an acute cholecystitis. She had a CT scan approximately 10 days ago for very similar symptoms that brought her in today and her exam today is not consistent with an acute abdomen so I feel that we should hold on another CT scan for now. I do feel that she does need the follow-up with gastroenterology that she was scheduled for Thursday of next week. Will send her home with Vinny to see if this will help her nausea more than the Zofran. Patient was given return precautions. Unfortunately I do not have a definitive etiology of her symptoms today. Discharge Plan Departure Patient Disposition: Home Clinical Impression: Abdominal pain, Cholelithiasis Instructions: Gallstones, DI for Abdominal Pain-Adult Activity Restrictions/Additional Instructions: I recommend that you eat a bland diet for the next several days. Be sure that you are trying to increase your fluid intake. Use the Reglan/metoclopramide and the ondansetron/Zofran as needed for nausea and vomiting. Keep your appointment that you have scheduled with Gastroenterology on Thursday. Return to the emergency department for new symptoms. Prescriptions: New metoclopramide HCl [Reglan] 10 mg tablet 10 mg PO Q6H PRN (Reason: nausea and vomiting) Qty: 20 0RF No Action dicyclomine 20 mg tablet 20 mg PO TID Qty: 30 0RF famotidine [Pepcid] 20 mg tablet 20 mg PO BID Qty: 30 0RF sucralfate [Carafate] 1 gram tablet 1 g PO QAC Qty: 30 0RF ondansetron 4 mg tablet,disintegrating 4 mg PO Q8H PRN (Reason: nausea and vomiting) Qty: 30 0RF oxycodone 5 mg Tablet 5 mg PO Q6H PRN (Reason: Pain, Moderate (4-6)) Qty: 12 0RF Referrals: Jasmin Medina PA-C [Primary Care Provider] - Stand Alone Forms: Patient Portal/API
[2024-03-21 20:54] LABS: Add Manual Diff / Slide Review NO; Basophils Absolute Auto 0 /uL (0-100); Basophils Percent Auto 0.5 % (0-2); Eosinophils Absolute Auto 100 /uL (0-450); Hematocrit 40.9 % (36-46); Hemoglobin 13.6 g/dL (12.0-16.0); Lymphocytes Absolute Auto 1300 /uL (1100-4500); Lymphocytes Percent Auto 19.5 % (25-40); Mean Corpuscular HGB Conc 33.2 % (30-36); Mean Corpuscular Hemoglobin 27.3 PG (26-34); Mean Corpuscular Volume 82.1 fL (80-100); Monocytes Absolute Auto 300 /uL (0-900); Monocytes Percent Auto 4.6 % (3-14); Neutrophils Absolute Auto 4800 /uL (1500-7000); Neutrophils Percent Auto 74.4 % (50-75); Platelet Count 418 X10^3/uL (150-400); Red Blood Cell Count 4.98 X10^6/uL (4.0-5.2); Red Cell Distribution Width 14.5 % (11.6-14.8); White Blood Cell Count 6.5 X10^3/uL (4.5-11.0)
[2024-03-21 21:05] LABS: Alanine Aminotransferase 12 IU/L (<35); Albumin 4.5 g/dL (3.5-5.0); Albumin Globulin Ratio 1.3 (1.0-2.8); Alkaline Phosphatase 67 U/L (38-126); Aspartate Aminotransferase 23 IU/L (14-36); BUN Creatinine Ratio 17.1 (6-22); Bilirubin Total 0.6 mg/dL (0.2-1.3); Blood Urea Nitrogen 12 mg/dL (7-17); Calcium 9.4 mg/dL (8.4-10.2); Carbon Dioxide 29 mmol/L (22-32); Chloride 97 mmol/L (98-107); Estimated Glomerular Filt Rate > 60 mL/min (>60); Globulin 3.5 g/dL (1.7-4.1); Glucose 98 mg/dL (70-100); HEMOLYSIS < 15 (0-50); Lipase 60 U/L (23-300); Potassium 3.6 mmol/L (3.4-5.1); Sodium 136 mmol/L (137-145)
[2024-03-21] MEDS: KETOROLAC 30 MG/ML VIAL 15 MG IV (21:05)
[2024-03-21] MEDS: ONDANSETRON 4 MG/2 ML INJ IV (21:07)
== END 2024-03-21 22:38 | disposition home or self-care (01) ==
PROVIDERS: Emergency Provider Emergency Medicine; Family Provider Specialist; PCP Physician Assistant
DX: R10.9 Unspecified abdominal pain (principal); R11.2 Nausea with vomiting, unspecified; K80.20 Calculus of gallbladder without cholecystitis without obstruction
CPT/HCPCS: 36415; 76705; 80053; 83690; 85025; 96374; 96375; 99284; J1885; J2405

== ENCOUNTER 2024-04-05 07:31 | Day surgery (SDC) | payer OTHER, SELFPAY ==
[2023-01-12 14:31] VITALS: BMI 21.6
[2024-03-31 07:16] VITALS: BMI 24.4
[2024-04-05] VITALS (10 sets, daily range): BP systolic 100–126; BP diastolic 66–81; PULSE 60–100; RESP 7–20; TEMP 36.3; O2SAT 96–100; BMI 24.3
--- NOTE | 2024-04-05 | PATH_ITS ---
[facility] Accession Number: [id number] No. of containers..01 Tissue . 01 Material submitted: . gallbladder - GALLBLADDER . 01 Diagnosis: GALLBLADDER, CHOLECYSTECTOMY: Chronic cholecystitis with cholelithiasis. Negative for dysplasia or malignancy. [facility] 04/11/2024 0917 Local . 01 Electronically signed: . Nalini Mazariegos MD, Pathologist NPI- [id number] . 01 Gross description: . Received in formalin with two patient identifiers and gallbladder, is an intact gallbladder, 7.9 x 3.5 x 3.5 cm with an unremarkable external surface. The cystic duct margin is inked blue and a brush lymph node candidate is 1.0 cm in greatest dimension. The lumen contains multiple orange faceted calculi, up to 0.7 cm in greatest dimension, grossly obstructing the cystic duct and admixed with dark green mucoid bile. The mucosa is green and velvety with no yellow areas of discoloration, polyps, or lesions identified. The escalera average 0.2 cm thick. Sandwich Hand sections to include the cystic duct margin, full thickness sections, and one-half of bisected lymph node candidate are submitted in A1. ([id number]) /MRV 04/08/2024 1804 Local . 01 Pathologist provided ICD-10: K80.60 . 01 CPT . 818933 Specimen Comment: A courtesy copy of this report has been sent to [phone] Performed at: [address] [id number] MD Silvano Benavidez MD Phone: [phone]
[2024-04-05] MEDS: LACTATED RINGERS 1,000 ML 42 ML IV (07:57)
[2024-04-05] MEDS: ACETAMINOPHEN 325 MG TABLET 975 MG PO (07:57)
--- NOTE | 2024-04-05 08:15 | PM.PREOP ---
Pre-operative Note COVID-19 COVID-19 status: Not tested Interval Note History & Physical reviewed/Exam performed by Physician: Yes Changes to H&P: No ASA Class (for procedural sedation): II
[2024-04-05] MEDS: CEFAZOLIN 2 GM/100 ML PREMIX 100 ML IV (08:49)
--- NOTE | 2024-04-05 09:03 | SUR.OPER ---
Supine on padded OR bed, head on pillow, arms secured on padded arm boards at <90 degrees abduction, legs uncrossed, safety belt at thigh, tape over blanket over lower legs.
[2024-04-05] MEDS: BUPIVACAINE 0.5% W/ EPI (PF) 30 ML VIAL INJ (09:30)
--- NOTE | 2024-04-05 10:11 | PM.OP.1 ---
Operative Date/Time/Diagnoses Date of procedure: 04/05/24 Time of procedure: 10:11 Pre-op diagnosis: Symptomatic cholelithiasis Post-op diagnosis: same Procedure & Clinicians Procedure: Laparoscopic cholecystectomy Same procedure as scheduled: Yes Surgeon: August Pathak Click Yes if Unassisted: Yes Anesthesia Type: General Operative Notes Procedure in detail: The patient was given preoperative antibiotics. The patient was brought to the operating room and placed on the table in the supine position. General endotracheal anesthesia was induced. The abdomen was prepped and draped. A time-out was performed. We made a 1 cm infraumbilical incision. We dissected down to the base of the umbilical stalk using cautery. We grasped the umbilical stalk with a Mirela clamp to elevate the abdominal wall. We scored the fascia in the midline with cautery. We pierced the peritoneum with a Peon clamp. The Kathrin port was placed and the abdomen was insufflated to 15 mmHg. A 5 mm 30 degree laparoscopic was inserted. There was no evidence of any injury from the entry. There was an adhesion anterior abdominal wall right upper quadrant. The 5 mm port was placed in the subxiphoid position under direct vision. The adhesion was taken down with cautery. There was no apparent bowel involvement in the adhesion. Finally, we placed the 2 remaining 5 mm ports in the right upper quadrant. The gallbladder was grasped at the dome and retracted cephalad. We then dissected the cystic structures with a combination of hook cautery and blunt dissection. We obtained a critical view. We placed clips on the cystic duct and artery and divided the cystic duct and artery sharply between the clips. The gallbladder was then dissected off the liver and placed in a specimen retrieval bag. We irrigated the right upper quadrant and all the aspirate returned clear. We then removed the 5 mm ports under direct vision we removed the Kathrin port. We then injected some local into the fascia and closed the fascia with 2 interrupted 0 Vicryl sutures. The skin incisions were closed with 4-0 Monocryl and Steri-Strips were applied. Band-Aids were applied over the Steri-Strips. EBL: 20 mL Specimen: Gallbladder and contents Post-operative Condition: stable Disposition: PACU
[2024-04-05] MEDS: HYDROMORPHONE 1 MG INJ IV (10:22)
[2024-04-05] MEDS: ONDANSETRON 4 MG/2 ML INJ IV (10:22)
[2024-04-05] MEDS: hydrOXYzine 50 MG/ML INJ 25 MG IM (10:26)
[2024-04-05] MEDS: OXYCODONE IR 5 MG TABLET PO (10:34)
== END 2024-04-05 12:01 | disposition home or self-care (01) ==
PROVIDERS: Family Provider Specialist; PCP Physician Assistant; Referring Provider Surgery; Visit Provider Surgery
PROC: 0FT44ZZ Resection of Gallbladder, Percutaneous Endoscopic Approach (ICD-10-PCS; CPT 47562; principal; 2024-04-05 09:00)
DX: K80.10 Calculus of gallbladder with chronic cholecystitis without obstruction (principal); K66.0 Peritoneal adhesions (postprocedural) (postinfection)
CPT/HCPCS: 47562; J0330; J0690; J1100; J1171; J2405; J2704; J3010; J3410; J3490

== ENCOUNTER 2024-06-10 08:30 | Emergency (ER) | payer OTHER, SELFPAY ==
[2023-01-12 14:31] VITALS: BMI 21.6
[2024-06-10 08:38] VITALS: O2SAT 98
[2024-06-10 08:39] VITALS: BP 118/65; PULSE 89; O2SAT 100
[2024-06-10 08:47] VITALS: BP 118/65; PULSE 88; RESP 16; TEMP 37.2; O2SAT 100; BMI 25.0
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
[2024-06-10 09:00] VITALS: BP 108/69; PULSE 79; O2SAT 100
[2024-06-10] MEDS: ACETAMINOPHEN 325 MG TABLET 975 MG PO (09:17)
[2024-06-10] MEDS: TET,DIPH,PERTUSS(ACELL),VAC/PF 0.5 ML SYRINGE IM (09:19)
[2024-06-10] MEDS: LIDOCAINE 2% INJ SDV 5ML 5 ML TOP (10:02)
[2024-06-10 10:23] VITALS: BP 96/64; PULSE 80; RESP 16; TEMP 36.7; O2SAT 98
== END 2024-06-10 10:25 | disposition home or self-care (01) ==
PROVIDERS: Emergency Provider Emergency Medicine; Family Provider Specialist; PCP Physician Assistant
DX: S01.01XA Laceration without foreign body of scalp, initial encounter (principal); W18.09XA Striking against other object with subsequent fall, initial encounter; Z23 Encounter for immunization
CPT/HCPCS: 12002; 70450; 72125; 90471; 99283; 99284; 90715

== ENCOUNTER 2024-06-21 18:57 | Emergency (ER) | payer OTHER, SELFPAY ==
[2023-01-12 14:31] VITALS: BMI 21.6
[2024-06-21 18:59] VITALS: BP 108/60; PULSE 57; RESP 16; TEMP 37.1; O2SAT 100; BMI 24.1
--- NOTE | 2024-06-21 20:38 | ED_ITS ---
HPI - Recheck/Abnormal Lab/Rx General Chief Complaint: Recheck/Abnormal Lab/Rx Stated Complaint: remove sutures Time Seen by Provider: 06/21/24 19:31 Source: patient Mode of arrival: Ambulatory History of Present Illness HPI narrative: Patient presents for removal of [place]. States she was healing well, denies other complaints. Related Data Home Medications Medication Instructions Recorded Confirmed acetaminophen 325 mg tablet 650 mg PO Q8H PRN Pain (Scale 03/28/24 04/05/24 (Tylenol) Score 1-3) Allergies Allergy/AdvReac Type Severity Reaction Status Date / Time No Known Drug Allergies Allergy Unknown Verified 04/20/24 13:22 [NO KNOWN DRUG ALLERGIES] Patient History Medical History Iron deficiency anemia GERD (gastroesophageal reflux disease) Hypokalemia Surgical History Hx of hysterectomy Family History Mother Gallstones Social History household members: spouse Smoking Status: Current some day smoker alcohol intake: former Smoking Status: Current some day smoker tobacco type: cigarettes alcohol intake frequency: a few times a month Exam Initial Vital Signs Initial Vital Signs: Vital Signs Temperature 98.7 F 06/21/24 18:59 Pulse Rate 57 L 06/21/24 18:59 Respiratory Rate 16 06/21/24 18:59 Blood Pressure 108/60 06/21/24 18:59 Pulse Oximetry 100 06/21/24 18:59 Oxygen Delivery Method Room Air 06/21/24 18:59 Const: Awake, alert, no acute distress, nontoxic appearing Skin: Warm, Dry, wound in late stages of healing, no complications Neuro: AO x3, CN II-XII grossly intact, moves all extremities Course Vital Signs Vital signs: Vital Signs - 8 hr 06/21/24 18:59 06/21/24 20:43 Temperature 98.7 F Pulse Rate 57 L 60 Respiratory Rate 16 18 Blood Pressure 108/60 102/59 L Pulse Oximetry 100 100 Oxygen Delivery Method Room Air Room Air MDM - Recheck/Abnormal Lab/Rx MDM Narrative Medical decision making narrative: Encounter for staple removal. [place] removed by nursing staff. Wound well healing. Discharge Plan Departure Patient Disposition: Home Clinical Impression: Encounter for removal of oneida Instructions: DI for Suture Removal Activity Restrictions/Additional Instructions: Your wound looks like it was healing well with no signs of infection. Continue to keep it clean and dry while the scab is in place. It will naturally flake off with time Prescriptions: No Action acetaminophen [Tylenol] 325 mg tablet 650 mg PO Q8H PRN (Reason: Pain (Scale Score 1-3)) Referrals: Jasmin Medina PA-C [Primary Care Provider] - Stand Alone Forms: Patient Portal/API/Survey
[2024-06-21 20:43] VITALS: BP 102/59; PULSE 60; RESP 18; O2SAT 100
== END 2024-06-21 20:45 | disposition home or self-care (01) ==
PROVIDERS: Emergency Provider Emergency Medicine; Family Provider Specialist; PCP Physician Assistant
DX: Z48.02 Encounter for removal of sutures (principal)
CPT/HCPCS: 99281